=== PATIENT | female | born 1965 | race Caucasian/White ===

== ENCOUNTER 2019-01-20 15:17 | Inpatient (IN) | payer MEDICARE, MEDICAID ==
[2019-01-20] MEDS ORDERED: Diltiazem DRIP* 100 MG/100 ML ADDV.BAG IV ONE (15:32)
[2019-01-20] MEDS ORDERED: Diltiazem IV push/loading dose 5 MG/ML 5 ML vial (25 mg) IV SLOW PU ONE (15:32)
--- NOTE | 2019-01-20 15:38 | ED ---
HPI Chest Pain - HPI Summary HPI Summary: Pt is a 53 y/o F presenting to the ED brought in by EMS for chest pain initially onset multiple weeks ago. She was recently d/misti from [facility], and states her CP and SOB has worsened over the past week or so. - History of Current Complaint Chief Complaint: EDChestPainROMI Time Seen by Provider: 01/20/19 15:24 Hx Obtained From: Patient Onset/Duration: Started Weeks Ago, Still Present Timing: Constant, Lasting Weeks Initial Severity: Mild Current Severity: None Pain Intensity: 0 Pain Scale Used: 0-10 Numeric Chest Pain Location: Diffuse Chest Pain Radiates: No Aggravating Factor(s): Nothing Alleviating Factor(s): Nothing Associated Signs and Symptoms: Positive: Chest Pain, Shortness of Breath - Allergy/Home Medications Allergies/Adverse Reactions: Allergies Allergy/AdvReac Type Severity Reaction Status Date / Time MS Penicillins [Penicillins] AdvReac Unknown Hives Verified 02/27/15 23:16 Home Medications: Home Medications Albuterol/Ipratropium NEB.ALENA* [Duoneb (Albuterol 2.5 MG/Ipratropium 0.5 MG)] 1 neb INH Q6H PRN 01/20/19 [History Confirmed 01/20/19] Amitriptyline HCl 25 mg PO DAILY 01/20/19 [History Confirmed 01/20/19] Apixaban [Eliquis] 2.5 mg PO BID 01/20/19 [History Confirmed 01/20/19] Clotrimazole/Betamethasone* [Lotrisone Cream*] 1 applic TOPICAL BID 01/20/19 [ History Confirmed 01/20/19] Docusate Sodium [Colace] 100 mg PO DAILY 01/20/19 [History Confirmed 01/20/19] Ferrous Gluconate [Iron 27] 325 mg PO DAILY 01/20/19 [History Confirmed 01/20/19 ] Fluticasone-Salmeterol 250-50* [Advair Diskus 250-50*] 1 puff INH BID 01/20/19 [ History Confirmed 01/20/19] Furosemide [Lasix] 20 mg PO DAILY 01/20/19 [History Confirmed 01/20/19] Gabapentin 300 mg PO TID 01/20/19 [History Confirmed 01/20/19] Hydrocodone/Acetaminophen [Thornton 10-325 Tablet] 1 each PO QID PRN 01/20/19 [ History Confirmed 01/20/19] Pantoprazole Sodium 40 mg PO DAILY 01/20/19 [History Confirmed 01/20/19] Ropinirole HCl 0.5 mg PO BEDTIME 01/20/19 [History Confirmed 01/20/19] Spironolactone [Aldactone 25 MG-] 25 mg PO DAILY 01/20/19 [History Confirmed 10/05] Tizanidine HCl 4 mg PO TID PRN 01/20/19 [History Confirmed 01/20/19] Umeclidin/Vilant 62.5 MDI(NF) [ANORO 62.5/25 Ellipta DEVICE (NF)] 1 inh INH DAILY 01/20/19 [History Confirmed 01/20/19] Venlafaxine HCl [Venlafaxine HCl ER] 150 mg PO DAILY 01/20/19 [History Confirmed 01/20/19] dilTIAZem HCl [Diltiazem HCl ER] 180 mg PO DAILY 01/20/19 [History Confirmed 10/05] PMH/Surg Hx/FS Hx/Imm Hx Previously Healthy: Yes Endocrine/Hematology History: Denies: Hx Diabetes Cardiovascular History: Denies: Hx Hypertension Infectious Disease History: No Infectious Disease History: Denies: Traveled Outside the [place] in Last 30 Days - Family History Known Family History: Negative: Seizure Disorder - Social History Alcohol Use: Occasionally Hx Substance Use: No Substance Use Type: Reports: None Hx Tobacco Use: Yes Smoking Status (MU): Heavy Every Day Tobacco Smoker Review of Systems Positive: Chest Pain Positive: Shortness Of Breath All Other Systems Reviewed And Are Negative: Yes Physical Exam - Summary Physical Exam Summary: Appearance: The patient is well-nourished in no acute distress and in no acute pain. Skin: The skin is warm, diaphoretic, and skin color reflects adequate perfusion. HEENT: The head is normocephalic and atraumatic. The pupils are equal and reactive. The conjunctivae are clear and without drainage. Nares are patent and without drainage. Mouth reveals moist mucous membranes and the throat is without erythema and exudate. The external ears are intact. The ear canals are patent and without drainage. The tympanic membranes are intact. Neck: The neck is supple with full range of motion and non-tender. There are no carotid bruits. There is no neck vein distension. Respiratory: Chest is non-tender. Lungs have crackles 1[address], and breath sounds are symmetrical and equal. Cardiovascular: Heart is tachycardic and irregular. There is no murmur or rub auscultated. There is no peripheral edema and pulses are symmetrical and equal. Abdomen: The abdomen is soft and non-tender. There are normal bowel sounds heard in all four quadrants and there is no organomegaly palpated. Musculoskeletal: There is no back tenderness noted. Extremities are non-tender with full range of motion. There is good capillary refill. There is no peripheral edema or calf tenderness elicited. Neurological: Patient is alert and oriented to person, place and time. The patient has symmetrical motor strength in all four extremities. Cranial nerves are grossly intact. Deep tendon reflexes are symmetrical and equal in all four extremities. Psychiatric: The patient has an appropriate affect and does not exhibit any anxiety or depression. Triage Information Reviewed: Yes Vital Signs On Initial Exam: Initial Vitals Temp Pulse Resp BP Pulse Ox 96.9 F 162 25 117/77 98 01/20/19 15:29 01/20/19 15:29 01/20/19 15:29 01/20/19 15:29 01/20/19 15:29 Vital Signs Reviewed: Yes Diagnostics - Vital Signs Vital Signs Temp Pulse Resp BP Pulse Ox 01/20/19 15:29 96.9 F 162 25 117/77 98 - Laboratory Result Diagrams: 01/20/19 15:43 01/20/19 15:43 Lab Statement: Any lab studies that have been ordered have been reviewed, and results considered in the medical decision making process. - Radiology CXR Radiology Interpretation Completed By: Radiologist Summary of Radiographic Findings: 1. Interstitial pulmonary edema. 2. Mild cardiomegaly. 3. Small right and moderate left pleural effusion. 4. Its unclear if the 2.2 cm rounded opacity in the left upper lung zone is account executive sales representative of a pulmonary nodule or vascular markings. This could be further characterized by an elective chest CT. ED physician has reviewed this report. - EKG 1527 Cardiac Rate: Other Rate - afib 174 EKG Rhythm: Atrial Fibrillation ST Segment: Normal Ectopy: None Summary of EKG Findings: EKG at 1527 shows atrial fibrillation with RVR at 174bpm. No STEMI. No ectopy. No acute changes. Chest Pain Course/Dx - Course Course Of Treatment: Ms. Ricardo presented symptomatic with atrial fibrillation with RVR. She was immediately brought back, placed on a monitor and an IV was initiated. She was given Cardizem and started on a Cardizem drip with slowing of her rate and resolution of her symptoms. I spoke with the hospitalist about admitting her. - Diagnoses Provider Diagnoses: Atrial fibrillation with RVR - Provider Notifications Discussed Care Of Patient With: Russell Newell Time Discussed With Above Provider: 05:21 Instructed by Provider To: Admit As Inpatient - Critical Care Time Critical Care Time: 30-74 min - 30min Discharge - Sign-Out/Discharge Documenting (check all that apply): Patient Departure - Discharge Plan Condition: Stable Disposition: ADMITTED TO [facility] Referrals: Israel Gifford, [Primary Care Provider] - - Billing Disposition and Condition Condition: STABLE Disposition: Admitted to [facility] - Attestation Statements Document Initiated by Scribe: Yes Documenting Scribe: Ami Burns Provider For Whom [facility] is Documenting (Include Credential): Saul Kemp MD. Scribe Attestation: IAmi, scribed for Saul Kemp MD. on 01/20/19 at 1852. Scribe Documentation Reviewed: Yes Provider Attestation: The documentation as recorded by the scribe, Ami Burns accurately reflects the service I personally performed and the decisions made by me, Saul Kemp MD. Status of Scribe Document: Viewed Consult Consult: [id number] - I spoke with Dr. Newell who will be accepting the pt to [facility].
[2019-01-20 15:48] LABS: ABS Basophils 0.1 10^3/ul (0-0.2); ABS Eosinophils 0.1 10^3/ul (0-0.6); ABS Lymphocytes 1.7 10^3/ul (1.0-4.8); ABS Monocytes 0.6 10^3/ul (0-0.8); ABS Neutrophils 5.4 10^3/ul (1.5-7.7); Eosinophil % 1.2 %; Hematocrit 41 % (35-47); Hemoglobin 14.1 g/dL (12.0-16.0); Mean Corpuscular HGB Conc 34 g/dL (31-36); Mean Corpuscular Hemoglobin 35 pg (27-31); Mean Corpuscular Volume 102 fL (80-97); Mean Platelet Volume 8.4 fL (7.4-10.4); Platelet Count 172 10^3/uL (150-450); Red Blood Count 4.05 10^6 /uL (3.70-4.87); Red Cell Distribution Width 14 % (10-15); White Blood Count 7.9 10^3/uL (3.5-10.8)
[2019-01-20 15:56] LABS: INR 1.35 (0.82-1.09)
[2019-01-20] MEDS ORDERED: Diltiazem 125 mg in 125 mL D5W PREMIX (continuous infusion) IV SCH (16:00)
[2019-01-20 16:07] LABS: Albumin 3.8 g/dL (3.2-5.2); Albumin/Globulin Ratio 1.4 (1-3); BUN/Creatinine Ratio 16.7 (8-20); Calcium 8.9 mg/dL (8.6-10.3); Globulin 2.8 g/dL (2-4); Potassium 3.8 mmol/L (3.5-5.0); Total Bilirubin 0.6 mg/dL (0.2-1.0); Total Protein 6.6 g/dL (6.4-8.9)
[2019-01-20 16:51] LABS: TSH (Thyroid Stimulating Horm) 1.76 mcIU/mL (0.34-5.60)
[2019-01-20] MEDS ORDERED: Albuterol/Ipratropium NEB.SOL* Albuterol 2.5 MG/Ipratropium 0.5 MG 3 ML INH PRN (18:28)
[2019-01-20] MEDS ORDERED: tiZANidine TAB* 2 MG PO PRN (18:31)
[2019-01-20] MEDS ORDERED: Furosemide IV* 10 MG/ML 10 ML VIAL (100 MG) IV ONE (18:34)
[2019-01-20] MEDS ORDERED: Iohexol 350* (CONTRAST) 500 ML MDV IV ONE (18:53)
[2019-01-20] MEDS ORDERED: Diltiazem IV BAG* D5W Premix 125 MG/125 ML BAG IV SCH ×2 (19:00→20:34)
[2019-01-20] MEDS ORDERED: Digoxin IV* 0.5 MG/2 ML AMP (0.25 MG/ML) IV SLOW PU ONE (20:42)
[2019-01-20 20:57] LABS: C Reactive Protein 11.37 mg/L (<8.01)
[2019-01-20] MEDS ORDERED: Azithromycin IV(*) 250 MG in NS 0.9% 250 ML* 250 ML IVPB SCH (21:30)
[2019-01-20] MEDS: Apixaban* 2.5 MG TAB PO SCH (21:31)
[2019-01-20] MEDS: Gabapentin CAP(*) 300 MG PO SCH (21:31)
--- NOTE | 2019-01-20 21:36 | HP ---
CC: Dr. Israel Gifford * HISTORY AND PHYSICAL: DATE OF ADMISSION: 01/20/19 PROVIDER: Stephanie Marin NP PRIMARY CARE PROVIDER: Dr. Israel Gifford. ATTENDING PHYSICIAN WHILE IN THE HOSPITAL: Dr. Burns * (dictated by Stephanie Marin NP). CHIEF COMPLAINT: Shortness of breath. HISTORY OF PRESENT ILLNESS: Ms. Ricardo is a 53-year-old female with a past medical history significant for atrial fibrillation, depression, anxiety, GERD, COPD, diastolic dysfunction and history of sleep apnea, wears CPAP at night, who presented to the emergency room with complaints of progressively worsening shortness of breath x2 weeks. The patient reports that she was seen at [facility] last week for elevated heart rate and shortness of breath. She states that she was given medications to decrease her heart rate and was discharged home. She states over the past week her shortness of breath has become progressively worse. She reports that she has been sleeping up on 3 pillows and usually sleeps on 1. Shortness of breath worse with exertion. She does report a fever of 100.1 yesterday at home, some nasal congestion, and right -sided chest discomfort. She denies any weight gain. She does report a nonproductive cough. She does report some diarrhea and upper abdominal pain. She denies any unintended weight loss. She denies any increased swelling or edema. She does report that her abdomen feels bloated. She denies any gross hematuria or dysuria, focal weakness or sensory loss. Denies any visual complaints, dysphagia, arthralgias, myalgias, rashes, lesions, or open sores. Denies any psychosis or anxiety. While in the emergency room, the patient had routine lab work drawn. She was placed on the monitor and found to be in rapid atrial fibrillation at a rate of 162. She was given IV Cardizem and placed on a Cardizem drip at 10 mg per hour and her heart rate decreased to 103. Due to her continued tachycardia and chest x-ray with bilateral pleural effusions and her shortness of breath, we were asked to see and evaluate her for admission. PAST MEDICAL HISTORY: 1. Sleep apnea. 2. Atrial fibrillation, on chronic Eliquis. 3. Depression. 4. Anxiety. 5. GERD. 6. COPD. 7. Diastolic dysfunction. PAST SURGICAL HISTORY: 1. Gastric bypass. 2. C-sections. 3. Hysterectomy. 4. Tonsillectomy. HOME MEDICATIONS: Include: 1. Colace 100 mg p.o. daily. 2. Amitriptyline 25 mg p.o. daily. 3. Ropinirole 2 mg daily. 4. Effexor 150 mg p.o. daily. 5. Hydrocodone 10/325 q.6 hours as needed for pain. 6. Tizanidine 4 mg p.o. t.i.d. 7. Pantoprazole 40 mg p.o. daily. 8. Gabapentin 300 mg p.o. t.i.d. 9. Furosemide 20 mg p.o. daily. 10. Eliquis 2.5 mg p.o. b.i.d. 11. Spironolactone 25 mg p.o. daily. 12. Diltiazem HCl 180 mg p.o. daily. 13. Albuterol nebulizer as needed for shortness of breath. 14. Stiolto Respimat 2.5/2.5 mcg daily 2 puffs. 15. Ferrous gluconate 325 mg p.o. daily. (Medication list will need to be reviewed and a copy will need to be obtained from her primary care physician to confirm medications and diagnoses as this list that was provided was obtained from August of 2018 from a primary care record in [employer].) FAMILY HISTORY: Father with a history of hypertension. Mother with a history of unknown heart disease. Sister with diabetes. No reported history of cancer. SOCIAL HISTORY: The patient reports she smokes 2 packs per day. She does report occasional alcohol use. No illicit drug use. She is . She lives with her son. Surrogate decision maker in the event she is unable to make her own decisions is her son. She is a full code. REVIEW OF SYSTEMS: The patient does report fever and chills started yesterday, highest temp was 100.1. Denies any unintended weight loss. She does report right- sided chest pain. She denies any edema. Does report a nonproductive cough and shortness of breath. Denies any hemoptysis. No nausea, vomiting. She does report diarrhea and upper abdominal pain. She denies any gross hematuria, dysuria, focal weakness, or sensory loss. She denies any visual complaints, dysphagia, arthralgias, myalgias, rashes, lesions, or open sores. She denies any dizziness or lightheadedness. She denies any palpitations. PHYSICAL EXAMINATION GENERAL: At this time, Ms. Ricardo is a 53-year-old female. She is alert and oriented, resting on the stretcher in the emergency room. She is well developed , well nourished. She does appear to have mild respiratory distress. VITAL SIGNS: 113/60, heart rate 115 to 136, respirations are 19 to 28, O2 saturation 94% on O2 nasal cannula. Temp 96.9 HEENT: Head is atraumatic, normocephalic. Eyes: EOMs are intact. Pupils are 4 mm and equal. Sclerae anicteric and not pale. Oral mucosa appeared to be moist. NECK: Supple. LUNGS: Diminished bilaterally with crackles in the bases bilaterally with a few scattered expiratory wheezes on the left. CARDIAC: S1, S2. Irregular rate and rhythm. She is tachycardic. No rubs or gallops. ABDOMEN: Soft and nontender. Bowel sounds are present x4. MUSCULOSKELETAL: She is able to move all 4 extremities. There is no clubbing or cyanosis. There is no edema. Pedal pulses are +2 bilaterally. NEUROLOGIC: She is awake, alert, oriented x3. Speech is clear. Thought process is intact. There are no gross focal deficits noted. SKIN: Intact. DIAGNOSTIC STUDIES/LAB DATA: WBCs are 7.9, RBCs 4.05, hemoglobin 14.1, hematocrit 41, platelet count is 172. INR was 1.35, D-dimer 333. Sodium 137, potassium 3.8, chloride 107, carbon dioxide was 27, anion gap 9, BUN 10, creatinine 0.60, glucose was 110, lactic acid was 1.2, calcium 8.9, magnesium 2.0. ASTs were 25, ALTs were 31, alkaline phosphatase was 77. Troponin was 0.00. TSH was 1.76. She had a chest x-ray, radiologist's impression: Interstitial pulmonary edema, cardiomegaly, small right and moderate left pleural effusion. It is unclear if there is a 2.2 cm round opacity in the left upper lung zone representing pulmonary nodule or vascular markings, consider further characterization by an elective chest CT. She had a CTA of the chest, radiologist's impression: Sequelae and findings concerning for pulmonary edema potentially in the setting of heart failure; however, superimposed pneumonia cannot be excluded. No CTA evidence of pulmonary embolism. She had an electrocardiogram, which showed atrial fibrillation with RVR at a rate of 174 on admission. ASSESSMENT AND PLAN: Ms. Ricardo is a 53-year-old female with a past medical history significant for atrial fibrillation, on chronic Eliquis; depression; anxiety; sleep apnea; gastroesophageal reflux disease; chronic obstructive pulmonary disease; diastolic dysfunction, who presented to the emergency room with progressively worsening shortness of breath x2 weeks and nonproductive cough, nocturnal dyspnea. She will be admitted to the ICU with: 1. Atrial fibrillation with rapid ventricular response. Patient has a history of atrial fibrillation but is usually in normal sinus rhythm. The patient was tachycardic on arrival to the emergency room with a heart rate of 174. She was placed on a diltiazem drip and drip was increased to 15 mg per hour. Her heart rate is ranging from 100s to 130's. I did get a D-dimer, which was positive at 333. CTA of the chest was completed which showed no pulmonary embolism, but pulmonary edema and possible superimposed pneumonia. We will continue her on a Cardizem drip at 15 mg per hour. I will continue her Eliquis. She currently is on 2.5 mg p.o. b.i.d. Recommended daily dose is 5 mg p.o. b.i.d. The patient may benefit from cardioversion if we are unable to control her heart rate. If heart rate remains uncontrolled, I would recommend a consultation to Cardiology. 2. Shortness of breath. I suspect her shortness of breath is related to pulmonary edema and possible underlying pneumonia as well as uncontrolled rapid A-fib. CTA was concerning for pulmonary edema with possible superimposed pneumonia. I will get a CRP and send for a urine for Legionella and Strep pneumoniae. Get blood cultures. I will start her on ceftriaxone and azithromycin for treatment of pneumonia. As the patient reports fever at home 100.1 a day prior to arrival. She does have a history of COPD so antibiotic would be indicated, increased shortness of breath, cough and reported low grade fever. The patient does have a history of diastolic dysfunction as well. Last transthoracic echocardiogram was from July 2018. At that time, she had an EF of 50% and [id number] mitral stenosis was seen on the echocardiogram. I will repeat a transthoracic echo as well. I will give her Lasix 60 mg IV for treatment of pulmonary edema. strict i/o's and re-evaluate her fluid status in the AM for further diuretics. 3. Depression and anxiety. We will continue on Effexor and amitriptyline as previously prescribed. 4. Chronic obstructive pulmonary disease. The patient will be placed on albuterol nebulizer and home inhaler. 5. FEN: She can have a heart-healthy, no caffeine diet. 6. Code status: She is a full code. 7. DVT prophylaxis: She is currently on Eliquis. TIME SPENT: Time spent on this admission was 70 minutes, greater than half that time was spent at the bedside reviewing events leading thus far to her hospitalization, performing physical exam, and reviewing my plan of care. I have discussed this with my attending, Dr. Burns; she is in agreement with my plan. STEPHANIE MARIN, STARR [id number]/CPS #: [id number] JACQUE
[2019-01-20] MEDS: cefTRIAXone(*) 1 GM in NS 0.9% 50 ML* 50 ML IVPB SCH (22:31)
[2019-01-20 23:25] LABS: Urine Appearance Clear; Urine Bilirubin Negative (Negative); Urine Blood Negative (Negative); Urine Color Yellow; Urine Glucose Negative (Negative); Urine Ketones Negative (Negative); Urine Nitrite Negative (Negative); Urine Protein Negative (Negative); Urine Specific Gravity 1.031 (1.010-1.030); Urine Urobilinogen Negative (Negative)
[2019-01-21] MEDS: rOPINIRole TAB* 1 MG PO SCH ×2 (00:02→22:29)
[2019-01-21] MEDS: Diltiazem IV BAG* D5W Premix 125 MG/125 ML BAG IV SCH ×2 (00:39→08:48)
[2019-01-21 05:04] LABS: ABS Eosinophils 0.1 10^3/ul (0-0.6); ABS Lymphocytes 1.5 10^3/ul (1.0-4.8); ABS Monocytes 0.5 10^3/ul (0-0.8); ABS Neutrophils 3.6 10^3/ul (1.5-7.7); Eosinophil % 2.3 %; Hematocrit 37 % (35-47); Hemoglobin 12.5 g/dL (12.0-16.0); Mean Corpuscular HGB Conc 34 g/dL (31-36); Mean Corpuscular Hemoglobin 35 pg (27-31); Mean Corpuscular Volume 103 fL (80-97); Mean Platelet Volume 8.3 fL (7.4-10.4); Nucleated Red Blood Cells % 0.1; Platelet Count 144 10^3/uL (150-450); Red Blood Count 3.61 10^6 /uL (3.70-4.87); Red Cell Distribution Width 14 % (10-15); White Blood Count 5.9 10^3/uL (3.5-10.8)
[2019-01-21 05:20] LABS: BUN/Creatinine Ratio 14.3 (8-20); Calcium 8.5 mg/dL (8.6-10.3); EGFR African American 120.1 (>60); EGFR Non-African American 99.2 (>60); HDL Cholesterol 32.1 mg/dL; Potassium 3.5 mmol/L (3.5-5.0)
[2019-01-21] MEDS ORDERED: Perflutren Lipid Microsphere* 3 ML VIAL ONE (07:30)
[2019-01-21] MEDS: Hydrocodone/Acetamin 10/325 1 TAB PO PRN ×2 (08:44→19:06)
[2019-01-21] MEDS: Gabapentin CAP(*) 300 MG PO SCH ×3 (08:45→20:21)
[2019-01-21] MEDS: Amitriptyline TAB* 25 MG PO SCH (08:46)
[2019-01-21] MEDS: Pantoprazole TAB * 40 MG TAB PO SCH (08:46)
[2019-01-21] MEDS: Venlafaxine EXT RELEASE CAP* 75 MG PO SCH (08:47)
[2019-01-21] MEDS: Docusate CAP* 100 MG PO SCH (08:47)
[2019-01-21] MEDS: Spironolactone TAB* 25 MG PO SCH (08:47)
[2019-01-21] MEDS ORDERED: Ferrous Gluconate TAB* 324 MG TAB PO SCH (09:00)
[2019-01-21] MEDS ORDERED: Furosemide IV* 10 MG/ML VIAL (40 MG) IV SCH (09:00)
--- NOTE | 2019-01-21 10:05 | ECHO ---
*[facility]* [place] [address] Fax #: [phone] Transthoracic Echocardiogram Patient: Shy Ricardo : 1965 Study Date: 01/21/2019 Age: 53 Gender: F HR: 62 bpm Height: 63 in /160 cm BSA: 2.05 m^2 Weight: 229.5 lb /104.3 kg BMI: 40.7 kg/m^2 *Avionics Electrical Engineer: Evelia Fisher [facility] *Referring Physician: * Stephanie Marin *Reading Physician: * Ajay Monroe MD Indications: SOB. Congestive Heart Failure. History: COPD with CPAP usage, diastolic dysfunction. Risk factors: Current tobacco use. Conclusions Summary: - Procedure narrative: Transthoracic echocardiography was performed. Image quality was suboptimal. The study was technically limited due to poor acoustic window availability. Intravenous Definity , 4 mlswas administered. - Left ventricle: The cavity size is at the upper limits of normal. Wall thickness is normal. Systolic function is at the lower limits of normal. The estimated ejection fraction is 50-55%. Wall motion is normal; there are no regional wall motion abnormalities. - Right ventricle: The cavity size is mildly reduced. Systolic function is mildly reduced. - Mitral valve: Not well visualized, suspect rheumatic mitral stenosis The findings are consistent with moderate to severe stenosis according to updated guidelines. The presence of left atrium diliation and atrial arrhythmia presentation argues for clinically significant mitral stenosis. There is mild regurgitation. The pressure half-time is 208 ms. The mean diastolic gradient is 6.0 mm Hg while in sinus rhythm with a heart rate of 63 bpm The valve area by pressure half-time is 1.1 cm^2. Recommendations: None prior for comparison at time of interpretation. Study data: Transthoracic echocardiogram. Procedure: Transthoracic echocardiography was performed. Image quality was suboptimal. The study was technically limited due to poor acoustic window availability. Intravenous Definity , 4 mlswas administered. Image enhancement administered by Complete 2D, spectral Doppler, and color flow Doppler. Location: ICU Patient status: Inpatient. Patient room number: 12. Rhythm: Normal sinus rhythm. Findings Left ventricle: The cavity size is at the upper limits of normal. Wall thickness is normal. Systolic function is at the lower limits of normal. The estimated ejection fraction is 50-55%. Wall motion is normal; there are no regional wall motion abnormalities. There is abnormal septal motion of uncertain cause, consider right ventricle pressure/volume overload Left ventricular diastolic function parameters are indeterminate. Right ventricle: Not well visualized. The cavity size is mildly reduced. Systolic function is mildly reduced. Ventricular septum: Well visualized. Left atrium: Poorly visualized. The atrium is moderately to severely dilated. Right atrium: Not well visualized. Atrial septum: Poorly visualized. 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 Systolic bowing without prolapse. The findings are consistent with moderate to severe stenosis according to updated guidelines. The presence of left atrium diliation and atrial arrhythmia presentation argues for clinically significant mitral stenosis. There is mild regurgitation. Aortic valve: Not well visualized. Tricuspid valve: Not well visualized. Pulmonic valve: Well visualized. The leaflets are normal thickness. There is no evidence of stenosis. There is no significant regurgitation. Aorta: The aorta is not visualized. Pericardium: There is no pericardial effusion. No evidence of pleural fluid accumulation. Pulmonary arteries: Not well visualized. Systemic veins: Not well visualized. Pulmonary veins: Visualization of the pulmonary venous anatomy is incomplete, but a significant abnormality is unlikely. Measurements Left ventricle Value Ref Left atrium Value Ref CHLOÉ, LAX 5.0 cm 3.8 - 5.2 ML dim, A4C 5.1 cm ------- ESD, LAX (H) 4.1 cm 2.2 - 3.5 SI dim, A4C 6.3 cm ------- FS, LAX (L) 20 % 27 - 45 Vol/bsa, ES, 1-p A4C (H) 56 ml/m^2 11 - 40 PW, ED, LAX (H) 1.1 cm 0.6 - 0.9 Vol/bsa, ES, A/L (H) 55 ml/m^2 16 - 34 FS (L) 19 % 27 - 45 Mid-wall FS 10 % --------- Aortic valve Value Ref PW, ED (H) 1.1 cm 0.6 - 0.9 Peak v, S 1.01 m/sec ------- PW/ID, ED 0.21 --------- VTI, S 22.2 cm ------- DFT 610 ms --------- Mean grad, S 2.0 mm Hg ------- E', lat sofia, TDI (L) 5.1 cm/sec >=10.0 Peak grad, S 4.0 mm Hg - ------ E/e', lat sofia, TDI 32 --------- LVOT/AV, VTI ratio 0.77 ---- --- E', med sofia, TDI 13.3 cm/sec >=7.0 JEFFY, VTI 3.76 cm^2 - ------ E/e', med sofia, TDI 12 --------- JEFFY, Vmax 3.81 cm^2 ---- --- E', avg, TDI 9.2 cm/sec --------- E/e', avg, TDI (H) 18 <=14 Mitral valve Value R ef Peak E 1.61 m/sec ------- LVOT Value Ref Peak A 1.2 m/sec ------- Diam, S 2.50 cm --------- Decel time 717 ms ------- Area 4.9 cm^2 --------- PHT 208 ms ------- Peak stephanie, S 0.78 m/sec --------- Mean grad, D 6.0 mm Hg ------- VTI, S 17.0 cm --------- Peak grad, D 10.4 mm Hg ------- Mean grad, S 1 mm Hg --------- Peak E/A ratio 1.34 ------- SV 83 ml --------- MVA, PHT 1.1 cm^2 ------- SV/bsa 40 ml/m^2 --------- Pulmonic valve Value Ref Ventricular septum Value Ref Peak v, S 0.68 m/sec ------- IVS, ED (H) 1.0 cm 0.6 - 0.9 Peak grad, S 2.0 mm Hg ------- Right ventricle Value Ref CHLOÉ, LAX 2.7 cm --------- Legend: (L) and (H) nicolasa values outside specified reference range. Prepared and electronically signed by Ajay Monroe MD 01/21/2019 10:04
[2019-01-21] MEDS: Apixaban* 2.5 MG TAB PO SCH (11:02)
[2019-01-21] MEDS: Diltiazem CD CAP* 180 MG PO SCH ×2 (13:04→17:29)
[2019-01-21 19:18] LABS: Troponin I 0.01 ng/mL (<0.04)
[2019-01-21] MEDS ORDERED: Potassium Chlor TAB* 20 MEQ TAB.ER PO ONE (19:46)
[2019-01-21] MEDS ORDERED: Furosemide IV* 10 MG/ML 2 ML VIAL (20 MG) IV ONE (19:47)
--- NOTE | 2019-01-21 19:54 | CONSULT ---
Subjective Date of Service: 01/21/19 Interval History: Date of consult 01/21/2019 Primary Care Physician: Israel Gifford D.O. Collar Trimmer: Dr. Gonsalez CC: Dyspnea Reason for consult: Atrial fibrillation, mitral stenosis, CHF HPI: Shy Ricardo is a 53 year old woman with a history as below. Patient was admitted with 2 weeks of dyspnea. She was at [facility] and given rate control medications for atrial fibrillation. Symptoms continued to worsen. She developed orthopnea, abdomen bloating sensation, and right sided chest discomfort. She was admitted and found with rapid atrial fibrillation and CHF. She spontaneously converted to sinus rhythm on a diltiazem gtt and she feels markedly improved and is able to ambulate to the bathroom without symptoms. She does have a known history of paroxysmal atrial fibrillation which she cannot feel. PAST MEDICAL HISTORY: 1. Sleep apnea. 2. Atrial fibrillation, on chronic Eliquis. 3. Mitral stenosis, likely rheumatic 4. Multifactorial heart failure 5. Obesity 6. Anxiety/depression Allergies:Penicillin 09/23/15 - hives Surgical Hx: Section, Dilation & Curettage, Gastric Banding, Tubal Ligation, Hysterectomy FH: Cancer, Diabetes, Hypertension, Thyroid Disease. SOCIAL HISTORY: The patient reports she smokes 2 packs per day. She does report occasional alcohol use. No illicit drug use. She is . She lives with her son. Surrogate decision maker in the event she is unable to make her own decisions is her son. She is a full code. Medications Active Medications: Acetaminophen (Tylenol Tab*) 650 mg PO Q4H PRN PRN Reason: FEVER/PAIN Hydrocodone Bitart/Acetaminophen ([place] 10/325 (Nf)) 1 tab PO Q6H PRN PRN Reason: PAIN - SEVERE Last Admin: 01/21/19 19:06 Dose: 1 tab Albuterol/Ipratropium (Duoneb (Albuterol 2.5 Mg/Ipratropium 0.5 Mg)) 1 neb INH [id number] AWAKE PRN PRN Reason: sob/wheexing Amiodarone HCl (Cordarone Tab*) 400 mg PO DAILY [facility] Amitriptyline HCl (Elavil Tab*) 25 mg PO DAILY [facility] Last Admin: 01/21/19 08:46 Dose: 25 mg Apixaban (Eliquis*) 5 mg PO BID [facility] Diltiazem HCl (Cardizem Cd Cap*) 180 mg PO DAILY [facility] Last Admin: 01/21/19 17:29 Dose: 180 mg Docusate Sodium (Colace Cap*) 100 mg PO DAILY [facility] Last Admin: 01/21/19 08:47 Dose: Not Given Ferrous Gluconate (Fergon Tab*) 324 mg PO DAILY [facility] Furosemide (Lasix Iv*) 20 mg IV ONCE ONE Stop: 01/21/19 19:48 Furosemide (Lasix Tab*) 20 mg PO DAILY [facility] Gabapentin (Neurontin Cap(*)) 300 mg PO TID [facility] Last Admin: 01/21/19 14:58 Dose: 300 mg Ceftriaxone Sodium 1 gm/ (Sodium Chloride) 50 mls @ 100 mls/hr IVPB Q24H [facility] Last Admin: 01/20/19 22:31 Dose: 100 mls/hr Pantoprazole Sodium (Protonix Tab*) 40 mg PO DAILY [facility] Last Admin: 01/21/19 08:46 Dose: 40 mg Potassium Chloride (Klor Con Er Tab*) 40 meq PO ONCE ONE Stop: 01/21/19 19:47 Ropinirole HCl (Requip Tab*) 2 mg PO BEDTIME [facility] Last Admin: 01/21/19 00:02 Dose: 2 mg Spironolactone (Aldactone Tab*) 25 mg PO DAILY [facility] Last Admin: 01/21/19 08:47 Dose: 25 mg Tizanidine HCl (Zanaflex Tab*) 4 mg PO TID PRN PRN Reason: SPASMS Last Admin: 01/21/19 08:45 Dose: 4 mg Venlafaxine HCl (Effexor Xr Cap*) 150 mg PO DAILY [facility] Last Admin: 01/21/19 08:47 Dose: 150 mg Home Medications: Albuterol/Ipratropium NEB.ALENA* [Duoneb (Albuterol 2.5 MG/Ipratropium 0.5 MG)] 1 neb INH Q6H PRN 01/20/19 [History Confirmed 01/20/19] Amitriptyline HCl 25 mg PO DAILY 01/20/19 [History Confirmed 01/20/19] Apixaban [Eliquis] 2.5 mg PO BID 01/20/19 [History Confirmed 01/20/19] Clotrimazole/Betamethasone* [Lotrisone Cream*] 1 applic TOPICAL BID 01/20/19 [ History Confirmed 01/20/19] Docusate Sodium [Colace] 100 mg PO DAILY 01/20/19 [History Confirmed 01/20/19] Ferrous Gluconate [Iron 27] 325 mg PO DAILY 01/20/19 [History Confirmed 01/20/19 ] Fluticasone-Salmeterol 250-50* [Advair Diskus 250-50*] 1 puff INH BID 01/20/19 [ History Confirmed 01/20/19] Furosemide [Lasix] 20 mg PO DAILY 01/20/19 [History Confirmed 01/20/19] Gabapentin 300 mg PO TID 01/20/19 [History Confirmed 01/20/19] Hydrocodone/Acetaminophen [[place] 10-325 Tablet] 1 each PO QID PRN 01/20/19 [ History Confirmed 01/20/19] Pantoprazole Sodium 40 mg PO DAILY 01/20/19 [History Confirmed 01/20/19] Ropinirole HCl 0.5 mg PO BEDTIME 01/20/19 [History Confirmed 01/20/19] Spironolactone [Aldactone 25 MG-] 25 mg PO DAILY 01/20/19 [History Confirmed 10/05] Tizanidine HCl 4 mg PO TID PRN 01/20/19 [History Confirmed 01/20/19] Umeclidin/Vilant 62.5 MDI(NF) [ANORO 62.5/25 Ellipta DEVICE (NF)] 1 inh INH DAILY 01/20/19 [History Confirmed 01/20/19] Venlafaxine HCl [Venlafaxine HCl ER] 150 mg PO DAILY 01/20/19 [History Confirmed 01/20/19] dilTIAZem HCl [Diltiazem HCl ER] 180 mg PO DAILY 01/20/19 [History Confirmed 10/05] Review of Systems - Measurements Intake and Output: Intake and Output Last 24 Hours 01/19/19 01/20/19 01/21/19 01/22/19 06:59 06:59 06:59 06:59 Intake Total 387 200 Output Total 400 Balance -13 200 Weight 277 lb 12.519 oz Intake: Medicated IV 150 GEN - Diltiazem/Cardizem 20 azithromycin 60 ceftriaxone 70 Oral 237 200 Output: Urine 400 - Review of Systems Constitutional Symptoms: Positive: Weakness, Fatigue Negative: Weight Gain, Weight Loss, Fever, Night Sweats Dermatology: Negative: Rash, Skin Lesions HEENT: Negative: Change in Hearing, Vertigo Eyes: Negative: Change in Vision, Double Vision Thyroid: Negative: Weight Loss, Weight Gain Pulmonary: Positive: Shortness of Breath, Exercise Intolerance Negative: Respiratory Distress, COPD Cardiology: Positive: Orthopnea Negative: Shortness of Breath, Swelling of Ankles, Peripheral Vascular Dis, Edema, Faintness, Syncope, Claudication Gastroenterology: Negative: Blood in Stools, Change in Bowel Habits, Haematemesis, Melena Genital - Urinary: Negative: Dysuria, Hematuria Musculoskeletal: Negative: Joint Pain, Joint Stiffness Endocrinology: Positive: Obesity Negative: Polydipsia, Polyuria Hematologic/Lymphatic: Positive: Use of Anticoagulant Negative: Use of Antiplatelet Drugs Neurology: Negative: Change in Speech, Change in Sphincter Function, Change in Walking, Hx of Stroke\TIA, Hx Seizures Psychiatry: Negative: Unusual Anxiety, Suicidal Ideation Allergic/Immunologic: Negative: Hx HIV, Immunocompromise Review of Systems Statement: All other review of systems negative, unless stated above. Objective Vital Signs: Temp Pulse Resp BP Pulse Ox 97.7 F 62 16 108/63 94 01/21/19 15:56 01/21/19 15:56 01/21/19 19:06 01/21/19 15:56 01/21/19 15:56 Oxygen Devices in Use Now: None Appearance: nad, pleasant Ears/Nose/Mouth/Throat: Mucous Membranes Moist Neck: Trachea Midline, - - uncertain jvp Respiratory: Symmetrical Chest Expansion and Respiratory Effort, - - crackles bases Cardiovascular: RRR, No Edema, - - distant, no significant murmur Abdominal: - - obese, soft Extremities: No Edema Skin: No Rash or Ulcers Neurological: Alert and Oriented x 3 Laboratory Results: 01/21/19 04:54 01/21/19 04:54 INR (Anticoag Therapy) 1.35 (0.82-1.09) H 01/20/19 15:43 Total Bilirubin 0.60 mg/dL (0.2-1.0) 01/20/19 15:43 AST 25 U/L (13-39) 01/20/19 15:43 ALT 31 U/L (7-52) 01/20/19 15:43 Alkaline Phosphatase 77 U/L (34-104) 01/20/19 15:43 Total Protein 6.6 g/dL (6.4-8.9) 01/20/19 15:43 Albumin 3.8 g/dL (3.2-5.2) 01/20/19 15:43 Globulin 2.8 g/dL (2-4) 01/20/19 15:43 Albumin/Globulin Ratio 1.4 (1-3) 01/20/19 15:43 Triglycerides 63 mg/dL 01/21/19 04:54 Cholesterol 82 mg/dL 01/21/19 04:54 LDL Cholesterol 37 mg/dL 01/21/19 04:54 HDL Cholesterol 32.1 mg/dL 01/21/19 04:54 TSH 1.76 mcIU/mL (0.34-5.60) 01/20/19 15:43 01/20/19 01/21/19 15:43 04:54 Troponin I 0.00 0.01 Diagnostic Imaging: Cardiac Testing: Echocardiogram - (07/30/2018) Normal LV function EF 65% Left atrial enlargement Mild AR Mod/severe Mitral Stenosis Mean Grad 12 mmHg PHT 136 ms Trace TR Mild Pulm HTN Transthoracic Echocardiogram Study Date: 01/21/2019 Summary: - Procedure narrative: Transthoracic echocardiography was performed. Image quality was suboptimal. The study was technically limited due to poor acoustic window availability. Intravenous Definity , 4 mlswas administered. - Left ventricle: The cavity size is at the upper limits of normal. Wall thickness is normal. Systolic function is at the lower limits of normal. The estimated ejection fraction is 50-55%. Wall motion is normal; there are no regional wall motion abnormalities. - Right ventricle: The cavity size is mildly reduced. Systolic function is mildly reduced. - Mitral valve: Not well visualized, suspect rheumatic mitral stenosis The findings are consistent with moderate to severe stenosis according to updated guidelines. The presence of left atrium diliation and atrial arrhythmia presentation argues for clinically significant mitral stenosis. There is mild regurgitation. The pressure half-time is 208 ms. The mean diastolic gradient is 6.0 mm Hg while in sinus rhythm with a heart rate of 63 bpm The valve area by pressure half-time is 1.1 cm^2. Exam Date: 01/20/19 CTA CHEST IMPRESSION: 1. Sequela of findings concerning for pulmonary edema potentially in the setting of heart failure, however superimposed pneumonia cannot be excluded. 2. No CTA evidence of pulmonary embolism. EKG Data: ekg 01/20/2019: Afib 174 bpm, no ischemic st changes ekg post-afib: sinus bradycardia, LAE, Precordial and 1/aVL TWI. I calculated qtc at 450 ms. the T wave inversions are new since 08/2018 although this was a month after the prior rapid afib ekg from 07/27/2018 Assessment/Plan 53 year old woman with obesity and tobacco use admitted with valvular heart failure exacerbation secondary to atrial fibrillation in the setting of mitral stenosis (likely rheumatic) now symptomatically improved with spontaneous conversion to sinus rhythm. - Continue eliquis 5 mg po bid, technically not indicated in this situation but tolerated well previously would continue - Give IV lasix 20 mg x 1 now with 40 meq of K then resume oral [facility] lasix 20 mg /spironolactone 25 mg daily (ordered) - Continue [facility] diltiazem 180 mg po daily - Will start amiodarone 400 mg po daily without loading dose for now until she can follow up with Dr. Gonsalez as I feel she would benefit from strict rhythm control in this situation. Post-conversion EKG suspicious for myocardial ischemia (would be most concerned about underlying CAD but other mechanisms possible) but she now has no symptoms , no wall motion abnormalities on echo and her troponin stayed normal despite a heart rate of over 170 bpm and there was no ischemic S-T depression at a heart rate of 174 bpm. She actually has a very favorable lipid profile with non-hdl total of 50 and LDL of 37 so a statin was not started. I would not start aspirin in addition to anticoagulation. She was counseled on tobacco cessation and a heart healthy diet with weight loss to reduce her risk of CV events and even in the short term. We will repeat an EKG tomorrow 01/22/2019 and if unchanged or improved and patient remains without symptoms she can be discharged on Monday01/22/2019 and follow up with Dr. Gonsalez for consideration of 1. ischemic evaluation, 2. Ongoing rhythm vs. rate control 3. Mitral stenosis evaluation/management Thank you for allowing me to participate in the cardiovascular care of this patient. Please do not hesitate to contact me with questions or concerns.
[2019-01-21] MEDS: Apixaban* 5 MG TAB PO SCH (20:22)
[2019-01-21] MEDS: Amiodarone TAB* 400 MG PO SCH (20:22)
[2019-01-21] MEDS: cefTRIAXone(*) 1 GM in NS 0.9% 50 ML* 50 ML IVPB SCH (20:23)
--- NOTE | 2019-01-21 21:47 | PN ---
Subjective Date of Service: 01/21/19 Interval History: Patient reports that she is feeling better. Reports that shortness of breath has improved. Denies chest pain or chest tightness. Denies fever or chills. Patient converted to NSR overnight- Cardizem was discontinued Patient is currently SB 58 on the monitor at the time of evaluation. EKG 0100 with T -wave inversions in V1-V6 repeat EKG at 0930 continues to show T wave inversions Troponins negative, patient with no chest pain- will obtain EKG's from [facility] to compare Family History: Unchanged from Admission Social History: Unchanged from Admission Past Medical History: Unchanged from Admission Objective Active Medications: Acetaminophen (Tylenol Tab*) 650 mg PO Q4H PRN PRN Reason: FEVER/PAIN Hydrocodone Bitart/Acetaminophen ([place] 10/325 (Nf)) 1 tab PO Q6H PRN PRN Reason: PAIN - SEVERE Last Admin: 01/21/19 19:06 Dose: 1 tab Albuterol/Ipratropium (Duoneb (Albuterol 2.5 Mg/Ipratropium 0.5 Mg)) 1 neb INH [id number] AWAKE PRN PRN Reason: sob/wheexing Amiodarone HCl (Cordarone Tab*) 400 mg PO DAILY [facility] Last Admin: 01/21/19 20:22 Dose: 400 mg Amitriptyline HCl (Elavil Tab*) 25 mg PO DAILY [facility] Last Admin: 01/21/19 08:46 Dose: 25 mg Apixaban (Eliquis*) 5 mg PO BID [facility] Last Admin: 01/21/19 20:22 Dose: 5 mg Diltiazem HCl (Cardizem Cd Cap*) 180 mg PO DAILY [facility] Last Admin: 01/21/19 17:29 Dose: 180 mg Docusate Sodium (Colace Cap*) 100 mg PO DAILY [facility] Last Admin: 01/21/19 08:47 Dose: Not Given Ferrous Gluconate (Fergon Tab*) 324 mg PO DAILY [facility] Furosemide (Lasix Tab*) 20 mg PO DAILY [facility] Gabapentin (Neurontin Cap(*)) 300 mg PO TID [facility] Last Admin: 01/21/19 20:21 Dose: 300 mg Ceftriaxone Sodium 1 gm/ (Sodium Chloride) 50 mls @ 100 mls/hr IVPB Q24H [facility] Last Admin: 01/21/19 20:23 Dose: 100 mls/hr Pantoprazole Sodium (Protonix Tab*) 40 mg PO DAILY [facility] Last Admin: 01/21/19 08:46 Dose: 40 mg Ropinirole HCl (Requip Tab*) 2 mg PO BEDTIME [facility] Last Admin: 01/21/19 00:02 Dose: 2 mg Spironolactone (Aldactone Tab*) 25 mg PO DAILY [facility] Last Admin: 01/21/19 08:47 Dose: 25 mg Tizanidine HCl (Zanaflex Tab*) 4 mg PO TID PRN PRN Reason: SPASMS Last Admin: 01/21/19 08:45 Dose: 4 mg Venlafaxine HCl (Effexor Xr Cap*) 150 mg PO DAILY [facility] Last Admin: 01/21/19 08:47 Dose: 150 mg Vital Signs - 8 hr 01/21/19 01/21/19 01/21/19 14:58 15:56 19:06 Temperature 97.7 F Pulse Rate 62 Respiratory 18 16 16 Rate Blood Pressure 108/63 (mmHg) O2 Sat by Pulse 94 Oximetry 01/21/19 01/21/19 19:15 20:21 Temperature 97.6 F Pulse Rate 64 Respiratory 16 18 Rate Blood Pressure 109/63 (mmHg) O2 Sat by Pulse 93 Oximetry Oxygen Devices in Use Now: None Appearance: alert oriented x 3 no acute distress Eyes: No Scleral Icterus Ears/Nose/Mouth/Throat: Clear Oropharnyx, Mucous Membranes Moist Neck: NL Appearance and Movements; NL JVP, Trachea Midline Respiratory: Symmetrical Chest Expansion and Respiratory Effort, - - diminished in the bases bilat Cardiovascular: NL Sounds; No Murmurs; No JVD, No Edema Abdominal: NL Sounds; No Tenderness; No Distention Lymphatic: No Inguinal Adenopathy Extremities: No Edema, No Clubbing, Cyanosis Skin: No Rash or Ulcers Neurological: Alert and Oriented x 3 Nutrition: Taking PO's Result Diagrams: 01/21/19 04:54 01/21/19 04:54 Microbiology and Other Data: Microbiology 01/20/19 23:12 Legionella Urinary Antigen - Final Urine Negative Legionella Antigen 01/21/19 00:00 Streptococcus pneumoniae Ag Screen - Final Urine Negative S. pneumo Antigen 01/20/19 21:45 Nasal Screen MRSA (PCR) - Final Nasal Mrsa Not Detected Assess/Plan/Problems-Billing Assessment: Ms. Ricardo is a 53 y.o female with hx of afib on eliquis, htn, depression, anxiety, copd, diastolic dysfunction who presented to the ER with shortness of breath found tohave MARIANN, placed on cardizem drip. - Patient Problems (1) Shortness of breath Current Visit: Yes Status: Acute Code(s): R06.02 - SHORTNESS OF BREATH SNOMED Code(s): 077720490 Comment: Suspect her shortness of breath is related to her underlying Rapid afib and well as pulmonary edema with possible super improsed pneumonia - i will continue ceftriaxone, discontinued azithromycin as QTC 565 and start doxycycline. patient reported that she had fever prior to arrival of 100.1 and chills at home ,progressively worsening shortness of breath with hx of COPD, CRP is mildly elevated - (2) Atrial fibrillation with rapid ventricular response Current Visit: Yes Status: Acute Code(s): I48.91 - UNSPECIFIED ATRIAL FIBRILLATION SNOMED Code(s): 497420135995156 Comment: DIlitzem drip stopped- converted to SB overnight - EKG at 0100 8/5 and 0937 with T wave inversion v1- V6- patient is s/p digoxin which can produce similar EKG changes, these changes can also be seen in ischemia- cardiology consulted - will hold on as ASA at this time. Statin therapy will defer to cardiology for recommenatinos as patient does have LDL of 37, Choleserol is 82 and HDL 32 CTA of the chest - negative for PE - Troponins 0.00 repeat this AM 0.01 - patient denies chest pain, Echo with Normal wall motion and EF 50-55%, moderate to severe mitral stenosis (3) HTN (hypertension) Current Visit: Yes Status: Acute Code(s): I10 - ESSENTIAL (PRIMARY) HYPERTENSION SNOMED Code(s): 45123126 Comment: Sbp 99-109 will continue to monitor (4) Tobacco abuse Current Visit: Yes Status: Acute Code(s): Z72.0 - TOBACCO USE SNOMED Code( s): 258763537 Comment: patient is a heavy smoking smoking 2 ppd - smoking cessation discussed (5) DVT prophylaxis Current Visit: Yes Status: Acute Code(s): Z29.9 - ENCOUNTER FOR PROPHYLACTIC MEASURES, UNSPECIFIED SNOMED Code(s): 507296036 Comment: santiago (6) Full code status Current Visit: Yes Status: Acute Code(s): Z78.9 - OTHER SPECIFIED HEALTH STATUS SNOMED Code(s): 563048587
[2019-01-22 06:43] LABS: Hematocrit 38 % (35-47); Mean Corpuscular HGB Conc 35 g/dL (31-36); Mean Corpuscular Hemoglobin 35 pg (27-31); Mean Corpuscular Volume 102 fL (80-97); Mean Platelet Volume 8.1 fL (7.4-10.4); Platelet Count 149 10^3/uL (150-450); Red Blood Count 3.67 10^6 /uL (3.70-4.87); Red Cell Distribution Width 14 % (10-15); White Blood Count 4.7 10^3/uL (3.5-10.8)
[2019-01-22 07:07] LABS: BUN/Creatinine Ratio 13.3 (8-20); Potassium 3.7 mmol/L (3.5-5.0)
[2019-01-22] MEDS: Amitriptyline TAB* 25 MG PO SCH (08:47)
[2019-01-22] MEDS: Diltiazem CD CAP* 180 MG PO SCH (08:47)
[2019-01-22] MEDS: Apixaban* 5 MG TAB PO SCH ×2 (08:48→21:01)
[2019-01-22] MEDS: Ferrous Gluconate TAB* 324 MG TAB PO SCH (08:48)
[2019-01-22] MEDS: Spironolactone TAB* 25 MG PO SCH (08:48)
[2019-01-22] MEDS: Pantoprazole TAB * 40 MG TAB PO SCH (08:48)
[2019-01-22] MEDS: Venlafaxine EXT RELEASE CAP* 75 MG PO SCH (08:48)
[2019-01-22] MEDS: Amiodarone TAB* 400 MG PO SCH (08:48)
[2019-01-22] MEDS: DOXYcycline CAP(*) 100 MG PO SCH ×2 (08:48→21:01)
[2019-01-22] MEDS: Acetaminophen TAB* 325 MG PO PRN (08:49)
[2019-01-22] MEDS: Gabapentin CAP(*) 300 MG PO SCH ×3 (08:49→21:01)
[2019-01-22] MEDS: Docusate CAP* 100 MG PO SCH (08:51)
[2019-01-22] MEDS ORDERED: Furosemide TAB* 20 MG PO SCH (09:00)
--- NOTE | 2019-01-22 09:45 | PN ---
Subjective Date of Service: 01/22/19 Interval History: No acute issues overnight. Case discussed with Cardiology: QT prolongation. She takes tizanidine and effexor that likely is contributing factor. Currently in sinus rhythm. No chest pain or palpitations currently. Family History: Unchanged from Admission Social History: Unchanged from Admission Past Medical History: Unchanged from Admission Objective Active Medications: Acetaminophen (Tylenol Tab*) 650 mg PO Q4H PRN PRN Reason: FEVER/PAIN Last Admin: 01/22/19 08:49 Dose: 650 mg Hydrocodone Bitart/Acetaminophen ([place] 10/325 (Nf)) 1 tab PO Q6H PRN PRN Reason: PAIN - SEVERE Last Admin: 01/21/19 19:06 Dose: 1 tab Albuterol/Ipratropium (Duoneb (Albuterol 2.5 Mg/Ipratropium 0.5 Mg)) 1 neb INH [id number] AWAKE PRN PRN Reason: sob/wheexing Amiodarone HCl (Cordarone Tab*) 400 mg PO DAILY [facility] Last Admin: 01/22/19 08:48 Dose: 400 mg Amitriptyline HCl (Elavil Tab*) 25 mg PO DAILY [facility] Last Admin: 01/22/19 08:47 Dose: 25 mg Apixaban (Eliquis*) 5 mg PO BID [facility] Last Admin: 01/22/19 08:48 Dose: 5 mg Diltiazem HCl (Cardizem Cd Cap*) 180 mg PO DAILY [facility] Last Admin: 01/22/19 08:47 Dose: 180 mg Docusate Sodium (Colace Cap*) 100 mg PO DAILY [facility] Last Admin: 01/22/19 08:51 Dose: Not Given Doxycycline Hyclate (Vibramycin Cap(*)) 100 mg PO BID [facility] Last Admin: 01/22/19 08:48 Dose: 100 mg Ferrous Gluconate (Fergon Tab*) 324 mg PO DAILY [facility] Last Admin: 01/22/19 08:48 Dose: 324 mg Furosemide (Lasix Tab*) 20 mg PO DAILY [facility] Last Admin: 01/22/19 08:48 Dose: 20 mg Gabapentin (Neurontin Cap(*)) 300 mg PO TID [facility] Last Admin: 01/22/19 08:49 Dose: 300 mg Ceftriaxone Sodium 1 gm/ (Sodium Chloride) 50 mls @ 100 mls/hr IVPB Q24H [facility] Last Admin: 01/21/19 20:23 Dose: 100 mls/hr Pantoprazole Sodium (Protonix Tab*) 40 mg PO DAILY [facility] Last Admin: 01/22/19 08:48 Dose: 40 mg Ropinirole HCl (Requip Tab*) 2 mg PO BEDTIME [facility] Last Admin: 01/21/19 22:29 Dose: 2 mg Spironolactone (Aldactone Tab*) 25 mg PO DAILY [facility] Last Admin: 01/22/19 08:48 Dose: 25 mg Tizanidine HCl (Zanaflex Tab*) 4 mg PO TID PRN PRN Reason: SPASMS Last Admin: 01/21/19 08:45 Dose: 4 mg Venlafaxine HCl (Effexor Xr Cap*) 150 mg PO DAILY [facility] Last Admin: 01/22/19 08:48 Dose: 150 mg Vital Signs - 8 hr 01/22/19 01/22/19 01/22/19 03:15 07:45 08:00 Temperature 97.7 F 98.2 F Pulse Rate 64 67 Respiratory 20 16 18 Rate Blood Pressure 124/79 114/72 (mmHg) O2 Sat by Pulse 93 92 Oximetry 01/22/19 08:49 Temperature Pulse Rate Respiratory 18 Rate Blood Pressure (mmHg) O2 Sat by Pulse Oximetry Oxygen Devices in Use Now: None Appearance: obese female lying in bed, not in distress Eyes: PERRLA Ears/Nose/Mouth/Throat: Mucous Membranes Moist Respiratory: Symmetrical Chest Expansion and Respiratory Effort, Clear to Auscultation Cardiovascular: NL Sounds; No Murmurs; No JVD, RRR, No Edema Abdominal: NL Sounds; No Tenderness; No Distention, No Hepatosplenomegaly Extremities: No Edema Neurological: Alert and Oriented x 3 Result Diagrams: 01/22/19 06:32 01/22/19 06:32 Microbiology and Other Data: Microbiology 01/20/19 23:12 Legionella Urinary Antigen - Final Urine Negative Legionella Antigen 01/21/19 00:00 Streptococcus pneumoniae Ag Screen - Final Urine Negative S. pneumo Antigen 01/20/19 21:45 Nasal Screen MRSA (PCR) - Final Nasal Mrsa Not Detected Assess/Plan/Problems-Billing Assessment: Ms. Ricardo is a 53 y.o female with hx of afib on eliquis, htn, depression, anxiety, copd, diastolic dysfunction who presented to the ER with shortness of breath found to have rapid atrial fibrillaton - Patient Problems (1) Atrial fibrillation with rapid ventricular response Current Visit: Yes Status: Acute Code(s): I48.91 - UNSPECIFIED ATRIAL FIBRILLATION SNOMED Code(s): 429525818145909 Comment: status post diltiazem drip. continue amiodraone, cardizem on eliquis EKG with Qt prolongation cardio recommends outpatient ischemia work up. Echo with Normal wall motion and EF 50-55%, moderate to severe mitral stenosis (2) DVT prophylaxis Current Visit: Yes Status: Acute Code(s): Z29.9 - ENCOUNTER FOR PROPHYLACTIC MEASURES, UNSPECIFIED SNOMED Code(s): 013129519 Comment: eliquis (3) Shortness of breath Current Visit: Yes Status: Acute Code(s): R06.02 - SHORTNESS OF BREATH SNOMED Code(s): 567385277 Comment: Suspect her shortness of breath is related to her underlying Rapid afib and well as pulmonary edema with possible super improsed pneumonia continue rocephin and doxycycline. (4) QT prolongation Current Visit: Yes Status: Acute Code(s): R94.31 - ABNORMAL ELECTROCARDIOGRAM [ECG] [EKG] SNOMED Code(s): 816180974 Comment: Paged Dr. Gifford to discuss changing tizanidine to other muscle relaxer (possibly flexeril) and change effexor to another anti-depressant ( perhaps duloxetine?) will await call back before making decision, at this point I have d/c'ed the order for effexor and tizanidine (5) Pulmonary edema Current Visit: Yes Status: Acute Code(s): J81.1 - CHRONIC PULMONARY EDEMA SNOMED Code(s): 27043253 Comment: Received IV lasix, continue PO lasix.
[2019-01-22] MEDS ORDERED: Potassium Chlor TAB* 20 MEQ TAB.ER PO ONE (10:33)
[2019-01-22] MEDS ORDERED: Furosemide IV* 10 MG/ML VIAL (40 MG) IV ONE (10:33)
--- NOTE | 2019-01-22 10:37 | PN ---
<Sola Shirley - Last Filed: 01/22/19 10:31> Subjective Date of Service: 01/22/19 - PAF Interval History: HPI: Shy Ricardo is a 53 year old woman with a history as below. Patient was admitted with 2 weeks of dyspnea. She was at [facility] and given rate control medications for atrial fibrillation. Symptoms continued to worsen. She developed orthopnea, abdomen bloating sensation, and right sided chest discomfort. She was admitted and found with rapid atrial fibrillation and CHF. She spontaneously converted to sinus rhythm on a diltiazem gtt and she feels markedly improved and is able to ambulate to the bathroom without symptoms. She does have a known history of paroxysmal atrial fibrillation which she cannot feel. She states she is still SOB denies chest pain, dizziness or palpitations. Medications Active Medications: Acetaminophen (Tylenol Tab*) 650 mg PO Q4H PRN PRN Reason: FEVER/PAIN Last Admin: 01/22/19 08:49 Dose: 650 mg Hydrocodone Bitart/Acetaminophen ([place] 10/325 (Nf)) 1 tab PO Q6H PRN PRN Reason: PAIN - SEVERE Last Admin: 01/21/19 19:06 Dose: 1 tab Albuterol/Ipratropium (Duoneb (Albuterol 2.5 Mg/Ipratropium 0.5 Mg)) 1 neb INH [id number] AWAKE PRN PRN Reason: sob/wheexing Amiodarone HCl (Cordarone Tab*) 200 mg PO DAILY [facility] Amitriptyline HCl (Elavil Tab*) 25 mg PO DAILY [facility] Last Admin: 01/22/19 08:47 Dose: 25 mg Apixaban (Eliquis*) 5 mg PO BID [facility] Last Admin: 01/22/19 08:48 Dose: 5 mg Diltiazem HCl (Cardizem Cd Cap*) 180 mg PO DAILY [facility] Last Admin: 01/22/19 08:47 Dose: 180 mg Docusate Sodium (Colace Cap*) 100 mg PO DAILY [facility] Last Admin: 01/22/19 08:51 Dose: Not Given Doxycycline Hyclate (Vibramycin Cap(*)) 100 mg PO BID [facility] Last Admin: 01/22/19 08:48 Dose: 100 mg Ferrous Gluconate (Fergon Tab*) 324 mg PO DAILY [facility] Last Admin: 01/22/19 08:48 Dose: 324 mg Furosemide (Lasix Tab*) 20 mg PO DAILY [facility] Last Admin: 01/22/19 08:48 Dose: 20 mg Gabapentin (Neurontin Cap(*)) 300 mg PO TID [facility] Last Admin: 01/22/19 08:49 Dose: 300 mg Ceftriaxone Sodium 1 gm/ (Sodium Chloride) 50 mls @ 100 mls/hr IVPB Q24H [facility] Last Admin: 01/21/19 20:23 Dose: 100 mls/hr Pantoprazole Sodium (Protonix Tab*) 40 mg PO DAILY [facility] Last Admin: 01/22/19 08:48 Dose: 40 mg Ropinirole HCl (Requip Tab*) 2 mg PO BEDTIME [facility] Last Admin: 01/21/19 22:29 Dose: 2 mg Spironolactone (Aldactone Tab*) 25 mg PO DAILY [facility] Last Admin: 01/22/19 08:48 Dose: 25 mg Objective Vital Signs: Temp Pulse Resp BP Pulse Ox 98.2 F 67 18 114/72 92 01/22/19 07:45 01/22/19 07:45 01/22/19 08:49 01/22/19 07:45 01/22/19 07:45 Oxygen Devices in Use Now: None Appearance: nad, pleasant Ears/Nose/Mouth/Throat: Mucous Membranes Moist Neck: Trachea Midline, - - uncertain jvp Respiratory: Symmetrical Chest Expansion and Respiratory Effort, - - crackles bases Cardiovascular: RRR, No Edema, - - distant, no significant murmur Abdominal: - - obese, soft Extremities: No Edema Skin: No Rash or Ulcers Neurological: Alert and Oriented x 3 Lines/Tubes/Other Access: Clean, Dry and Intact Peripheral IV Laboratory Results: 01/22/19 06:32 01/22/19 06:32 INR (Anticoag Therapy) 1.35 (0.82-1.09) H 01/20/19 15:43 Total Bilirubin 0.60 mg/dL (0.2-1.0) 01/20/19 15:43 AST 25 U/L (13-39) 01/20/19 15:43 ALT 31 U/L (7-52) 01/20/19 15:43 Alkaline Phosphatase 77 U/L (34-104) 01/20/19 15:43 Total Protein 6.6 g/dL (6.4-8.9) 01/20/19 15:43 Albumin 3.8 g/dL (3.2-5.2) 01/20/19 15:43 Globulin 2.8 g/dL (2-4) 01/20/19 15:43 Albumin/Globulin Ratio 1.4 (1-3) 01/20/19 15:43 Triglycerides 63 mg/dL 01/21/19 04:54 Cholesterol 82 mg/dL 01/21/19 04:54 LDL Cholesterol 37 mg/dL 01/21/19 04:54 HDL Cholesterol 32.1 mg/dL 01/21/19 04:54 TSH 1.76 mcIU/mL (0.34-5.60) 01/20/19 15:43 01/20/19 01/21/19 15:43 04:54 Troponin I 0.00 0.01 Laboratory Results - last 24 hr 01/21/19 01/22/19 01/22/19 04:54 06:32 06:32 WBC 4.7 RBC 3.67 L Hgb 13.0 Hct 38 MCV 102 H MCH 35 H MCHC 35 RDW 14 Plt Count 149 L MPV 8.1 Sodium 139 140 Potassium 3.5 3.7 Chloride 108 108 Carbon Dioxide 25 27 Anion Gap 6 5 BUN 9 8 Creatinine 0.63 0.60 Est GFR ( Amer) 120.1 127.0 Est GFR (Non-Af Amer) 99.2 105.0 BUN/Creatinine Ratio 14.3 13.3 Glucose 93 83 Calcium 8.5 L 9.0 Troponin I 0.01 Triglycerides 63 Cholesterol 82 LDL Cholesterol 37 HDL Cholesterol 32.1 Diagnostic Imaging: Cardiac Testing: Echocardiogram - (07/30/2018) Normal LV function EF 65% Left atrial enlargement Mild AR Mod/severe Mitral Stenosis Mean Grad 12 mmHg PHT 136 ms Trace TR Mild Pulm HTN Transthoracic Echocardiogram Study Date: 01/21/2019 Summary: - Procedure narrative: Transthoracic echocardiography was performed. Image quality was suboptimal. The study was technically limited due to poor acoustic window availability. Intravenous Definity , 4 mlswas administered. - Left ventricle: The cavity size is at the upper limits of normal. Wall thickness is normal. Systolic function is at the lower limits of normal. The estimated ejection fraction is 50-55%. Wall motion is normal; there are no regional wall motion abnormalities. - Right ventricle: The cavity size is mildly reduced. Systolic function is mildly reduced. - Mitral valve: Not well visualized, suspect rheumatic mitral stenosis The findings are consistent with moderate to severe stenosis according to updated guidelines. The presence of left atrium diliation and atrial arrhythmia presentation argues for clinically significant mitral stenosis. There is mild regurgitation. The pressure half-time is 208 ms. The mean diastolic gradient is 6.0 mm Hg while in sinus rhythm with a heart rate of 63 bpm The valve area by pressure half-time is 1.1 cm^2. Exam Date: 01/20/19 CTA CHEST IMPRESSION: 1. Sequela of findings concerning for pulmonary edema potentially in the setting of heart failure, however superimposed pneumonia cannot be excluded. 2. No CTA evidence of pulmonary embolism. EKG Data: ekg 01/20/2019: Afib 174 bpm, no ischemic st changes ekg post-afib: sinus bradycardia, LAE, Precordial and 1/aVL TWI. I calculated qtc at 450 ms. the T wave inversions are new since 08/2018 although this was a month after the prior rapid afib ekg from 07/27/2018 01/22/2019 ECG; Sinus rhythm rate 67. QTc 553. anterolateral TW abnormalities comparable to 01/21/2019 ECG Assessment/Plan 53 year old woman with obesity and tobacco use admitted with valvular heart failure exacerbation secondary to atrial fibrillation in the setting of mitral stenosis (likely rheumatic) now symptomatically improved with spontaneous conversion to sinus rhythm. - Continue eliquis 5 mg po bid, technically not indicated in this situation but tolerated well previously would continue - Give IV lasix 40 mg x 1 now with 40 meq of K then resume oral [employer] lasix 20 mg /spironolactone 25 mg daily (ordered) - Continue [employer] diltiazem 180 mg po daily - Will start amiodarone 400 mg po daily without loading dose for now until she can follow up with Dr. Gonsalez as I feel she would benefit from strict rhythm control in this situation. Post-conversion EKG suspicious for myocardial ischemia (would be most concerned about underlying CAD but other mechanisms possible) but she now has no symptoms , no wall motion abnormalities on echo and her troponin stayed normal despite a heart rate of over 170 bpm and there was no ischemic S-T depression at a heart rate of 174 bpm. She actually has a very favorable lipid profile with non-hdl total of 50 and LDL of 37 so a statin was not started. I would not start aspirin in addition to anticoagulation. She was counseled on tobacco cessation and a heart healthy diet with weight loss to reduce her risk of CV events and even in the short term. Today's ECG continues to show QTc prolongation I spoke with clinical pharmacist today about other medications that she is on that would potentiate QTc prolongation. Venlafaxine and Tizonidine both can prolong QTc, I notifed hospitalist who is to address. Will reduce Amiodarone to 200mg/day. Given 40mg IVP lasix, 40 MEQ K-Dur and will continue to follow. We will repeat an EKG tomorrow 01/23/2019 and if unchanged or improved and patient remains without symptoms she can be discharged on Monday01/23/2019 and follow up with Dr. Gonsalez for consideration of 1. ischemic evaluation, 2. Ongoing rhythm vs. rate control 3. Mitral stenosis evaluation/management Thank you for allowing me to participate in the cardiovascular care of this patient. Please do not hesitate to contact our service with any questions or concerns. Case discussed with Dr. Newton. Attending: Yaniv Newton <Yaniv Newton - Last Filed: 01/22/19 16:14> Medications Active Medications: Acetaminophen (Tylenol Tab*) 650 mg PO Q4H PRN PRN Reason: FEVER/PAIN Last Admin: 01/22/19 08:49 Dose: 650 mg Hydrocodone Bitart/Acetaminophen ([place] 10/325 (Nf)) 1 tab PO Q6H PRN PRN Reason: PAIN - SEVERE Last Admin: 01/21/19 19:06 Dose: 1 tab Albuterol/Ipratropium (Duoneb (Albuterol 2.5 Mg/Ipratropium 0.5 Mg)) 1 neb INH [id number] AWAKE PRN PRN Reason: sob/wheexing Amiodarone HCl (Cordarone Tab*) 200 mg PO DAILY [facility] Amitriptyline HCl (Elavil Tab*) 25 mg PO DAILY [facility] Last Admin: 01/22/19 08:47 Dose: 25 mg Apixaban (Eliquis*) 5 mg PO BID [facility] Last Admin: 01/22/19 08:48 Dose: 5 mg Diltiazem HCl (Cardizem Cd Cap*) 180 mg PO DAILY [facility] Last Admin: 01/22/19 08:47 Dose: 180 mg Docusate Sodium (Colace Cap*) 100 mg PO DAILY [facility] Last Admin: 01/22/19 08:51 Dose: Not Given Doxycycline Hyclate (Vibramycin Cap(*)) 100 mg PO BID [facility] Last Admin: 01/22/19 08:48 Dose: 100 mg Duloxetine HCl (Cymbalta Cap*) 40 mg PO DAILY [facility] Ferrous Gluconate (Fergon Tab*) 324 mg PO DAILY [facility] Last Admin: 01/22/19 08:48 Dose: 324 mg Furosemide (Lasix Tab*) 20 mg PO DAILY [facility] Gabapentin (Neurontin Cap(*)) 300 mg PO TID [facility] Last Admin: 01/22/19 14:59 Dose: 300 mg Ceftriaxone Sodium 1 gm/ (Sodium Chloride) 50 mls @ 100 mls/hr IVPB Q24H [facility] Last Admin: 01/21/19 20:23 Dose: 100 mls/hr Pantoprazole Sodium (Protonix Tab*) 40 mg PO DAILY [facility] Last Admin: 01/22/19 08:48 Dose: 40 mg Ropinirole HCl (Requip Tab*) 2 mg PO BEDTIME [facility] Last Admin: 01/21/19 22:29 Dose: 2 mg Spironolactone (Aldactone Tab*) 25 mg PO DAILY [facility] Last Admin: 01/22/19 08:48 Dose: 25 mg Objective Vital Signs: Temp Pulse Resp BP Pulse Ox 97.9 F 59 16 92/50 93 01/22/19 11:36 01/22/19 11:36 01/22/19 14:59 01/22/19 11:36 01/22/19 11:36 Laboratory Results: 01/22/19 06:32 01/22/19 06:32 INR (Anticoag Therapy) 1.35 (0.82-1.09) H 01/20/19 15:43 Total Bilirubin 0.60 mg/dL (0.2-1.0) 01/20/19 15:43 AST 25 U/L (13-39) 01/20/19 15:43 ALT 31 U/L (7-52) 01/20/19 15:43 Alkaline Phosphatase 77 U/L (34-104) 01/20/19 15:43 Total Protein 6.6 g/dL (6.4-8.9) 01/20/19 15:43 Albumin 3.8 g/dL (3.2-5.2) 01/20/19 15:43 Globulin 2.8 g/dL (2-4) 01/20/19 15:43 Albumin/Globulin Ratio 1.4 (1-3) 01/20/19 15:43 Triglycerides 63 mg/dL 01/21/19 04:54 Cholesterol 82 mg/dL 01/21/19 04:54 LDL Cholesterol 37 mg/dL 01/21/19 04:54 HDL Cholesterol 32.1 mg/dL 01/21/19 04:54 TSH 1.76 mcIU/mL (0.34-5.60) 01/20/19 15:43 01/20/19 01/21/19 15:43 04:54 Troponin I 0.00 0.01 Assessment/Plan Chart reviewed , patient examined. D/w Evan Fern. Agree with plan. Will continue to monitor rhythm and qtc. will reduce diltiazem due to potential interaction with amio and relatively low resting hr.
[2019-01-22] MEDS ORDERED: Furosemide IV* 10 MG/ML 2 ML VIAL (20 MG) IV ONE (11:42)
[2019-01-22] MEDS: rOPINIRole TAB* 1 MG PO SCH (21:01)
[2019-01-22] MEDS: cefTRIAXone(*) 1 GM in NS 0.9% 50 ML* 50 ML IVPB SCH (21:01)
[2019-01-22] MEDS: Hydrocodone/Acetamin 10/325 1 TAB PO PRN (21:04)
[2019-01-23] MEDS ORDERED: Potassium Chlor TAB* 20 MEQ TAB.ER PO ONE (08:43)
--- NOTE | 2019-01-23 10:03 | PN ---
<Sola Shirley - Last Filed: 01/23/19 09:57> Subjective Date of Service: 01/23/19 - PAF started on Amiodarone therapy. Interval History: Shy Ricardo is a 53 year old woman with a history as below. Patient was admitted with 2 weeks of dyspnea. She was at [facility] and given rate control medications for atrial fibrillation. Symptoms continued to worsen. She developed orthopnea, abdomen bloating sensation, and right sided chest discomfort. She was admitted and found with rapid atrial fibrillation and CHF. She spontaneously converted to sinus rhythm on a diltiazem gtt and she feels markedly improved and is able to ambulate to the bathroom without symptoms. She does have a known history of paroxysmal atrial fibrillation which she cannot feel. She states shortness of breath has improved, denies palpitations, sensation of heart racing or dizziness. She reports good urinary output after receiving IV lasix yesterday. Medications Active Medications: Acetaminophen (Tylenol Tab*) 650 mg PO Q4H PRN PRN Reason: FEVER/PAIN Last Admin: 01/22/19 08:49 Dose: 650 mg Hydrocodone Bitart/Acetaminophen ([place] 10/325 (Nf)) 1 tab PO Q6H PRN PRN Reason: PAIN - SEVERE Last Admin: 01/22/19 21:04 Dose: 1 tab Albuterol/Ipratropium (Duoneb (Albuterol 2.5 Mg/Ipratropium 0.5 Mg)) 1 neb INH [id number] AWAKE PRN PRN Reason: sob/wheexing Amiodarone HCl (Cordarone Tab*) 200 mg PO DAILY [facility] Amitriptyline HCl (Elavil Tab*) 25 mg PO DAILY [facility] Last Admin: 01/22/19 08:47 Dose: 25 mg Apixaban (Eliquis*) 5 mg PO BID [facility] Last Admin: 01/22/19 21:01 Dose: 5 mg Diltiazem HCl (Cardizem Cd Cap*) 120 mg PO DAILY [facility] Docusate Sodium (Colace Cap*) 100 mg PO DAILY [facility] Last Admin: 01/22/19 08:51 Dose: Not Given Doxycycline Hyclate (Vibramycin Cap(*)) 100 mg PO BID [facility] Last Admin: 01/22/19 21:01 Dose: 100 mg Duloxetine HCl (Cymbalta Cap*) 40 mg PO DAILY [facility] Ferrous Gluconate (Fergon Tab*) 324 mg PO DAILY [facility] Last Admin: 01/22/19 08:48 Dose: 324 mg Furosemide (Lasix Tab*) 20 mg PO DAILY [facility] Gabapentin (Neurontin Cap(*)) 300 mg PO TID [facility] Last Admin: 01/22/19 21:01 Dose: 300 mg Ceftriaxone Sodium 1 gm/ (Sodium Chloride) 50 mls @ 100 mls/hr IVPB Q24H [facility] Last Admin: 01/22/19 21:01 Dose: 100 mls/hr Pantoprazole Sodium (Protonix Tab*) 40 mg PO DAILY [facility] Last Admin: 01/22/19 08:48 Dose: 40 mg Ropinirole HCl (Requip Tab*) 2 mg PO BEDTIME [facility] Last Admin: 01/22/19 21:01 Dose: 2 mg Spironolactone (Aldactone Tab*) 25 mg PO DAILY [facility] Last Admin: 01/22/19 08:48 Dose: 25 mg Objective Vital Signs: Temp Pulse Resp BP Pulse Ox 97.8 F 65 16 122/77 95 01/23/19 07:54 01/23/19 07:54 01/23/19 07:54 01/23/19 07:54 01/23/19 07:54 Oxygen Devices in Use Now: None Appearance: nad, pleasant Ears/Nose/Mouth/Throat: Mucous Membranes Moist Neck: Trachea Midline, - - uncertain jvp Respiratory: Symmetrical Chest Expansion and Respiratory Effort, - Cardiovascular: RRR, No Edema, - - distant, no significant murmur Abdominal: - - obese, soft Extremities: No Edema Skin: No Rash or Ulcers Neurological: Alert and Oriented x 3 Lines/Tubes/Other Access: Clean, Dry and Intact Peripheral IV Laboratory Results: 01/22/19 06:32 01/22/19 06:32 INR (Anticoag Therapy) 1.35 (0.82-1.09) H 01/20/19 15:43 Total Bilirubin 0.60 mg/dL (0.2-1.0) 01/20/19 15:43 AST 25 U/L (13-39) 01/20/19 15:43 ALT 31 U/L (7-52) 01/20/19 15:43 Alkaline Phosphatase 77 U/L (34-104) 01/20/19 15:43 Total Protein 6.6 g/dL (6.4-8.9) 01/20/19 15:43 Albumin 3.8 g/dL (3.2-5.2) 01/20/19 15:43 Globulin 2.8 g/dL (2-4) 01/20/19 15:43 Albumin/Globulin Ratio 1.4 (1-3) 01/20/19 15:43 Triglycerides 63 mg/dL 01/21/19 04:54 Cholesterol 82 mg/dL 01/21/19 04:54 LDL Cholesterol 37 mg/dL 01/21/19 04:54 HDL Cholesterol 32.1 mg/dL 01/21/19 04:54 TSH 1.76 mcIU/mL (0.34-5.60) 01/20/19 15:43 01/20/19 01/21/19 15:43 04:54 Troponin I 0.00 0.01 Laboratory Results - last 24 hr 01/22/19 10:34 Digoxin 0.4 L Diagnostic Imaging: Cardiac Testing: Echocardiogram - (07/30/2018) Normal LV function EF 65% Left atrial enlargement Mild AR Mod/severe Mitral Stenosis Mean Grad 12 mmHg PHT 136 ms Trace TR Mild Pulm HTN Transthoracic Echocardiogram Study Date: 01/21/2019 Summary: - Procedure narrative: Transthoracic echocardiography was performed. Image quality was suboptimal. The study was technically limited due to poor acoustic window availability. Intravenous Definity , 4 mlswas administered. - Left ventricle: The cavity size is at the upper limits of normal. Wall thickness is normal. Systolic function is at the lower limits of normal. The estimated ejection fraction is 50-55%. Wall motion is normal; there are no regional wall motion abnormalities. - Right ventricle: The cavity size is mildly reduced. Systolic function is mildly reduced. - Mitral valve: Not well visualized, suspect rheumatic mitral stenosis The findings are consistent with moderate to severe stenosis according to updated guidelines. The presence of left atrium diliation and atrial arrhythmia presentation argues for clinically significant mitral stenosis. There is mild regurgitation. The pressure half-time is 208 ms. The mean diastolic gradient is 6.0 mm Hg while in sinus rhythm with a heart rate of 63 bpm The valve area by pressure half-time is 1.1 cm^2. Exam Date: 01/20/19 CTA CHEST IMPRESSION: 1. Sequela of findings concerning for pulmonary edema potentially in the setting of heart failure, however superimposed pneumonia cannot be excluded. 2. No CTA evidence of pulmonary embolism. EKG Data: ekg 01/20/2019: Afib 174 bpm, no ischemic st changes ekg post-afib: sinus bradycardia, LAE, Precordial and 1/aVL TWI. I calculated qtc at 450 ms. the T wave inversions are new since 08/2018 although this was a month after the prior rapid afib ekg from 07/27/2018 01/22/2019 ECG; Sinus rhythm rate 67. QTc 553. anterolateral TW abnormalities comparable to 01/21/2019 ECG 01/23/2019; Sinus rhythm rate 64, QTc 565. anterolateral TW depression comparable to prior ECG. Assessment/Plan #1 h/o PAF; Currently in NSR. On Eliquis 5mg Po BID, Amiodarone 200mg/day and Cardizem therapy. Amio and CCB reduced yesterday due to QTc prolongation. Primary team discontinued other medications last night that can potentiate QTc prolongation. She is anxious to go home. QTc today is 537 corrected by bazett formula. Given today will be the first day since medication changes recommend another night of monitoring. If QTc is not improving by tomorrow's ECG will stop Amiodarone Therapy. Continue OAC. d/w Dr gonsalez about continuing Eliquis versus transitioning to coumadin given h/o MS. #2 Moderate to Severe MS; patient presented with decompensated heart failure. She is to f/u outpatient with Dr. Gonsalez in two weeks to discuss evaluation. #3 Abnormal ECG; Patient has new anterolateral TW inversion. No c/o chest pain. Troponin normal. WM normal on echo. Will need to f/u with Dr. Gonsalez to discuss ischemic evaluation in addition to further MV evaluation. #4 Dispositon pending course. D/W Dr Newton who agrees with above assessment and plan. Attending: Yaniv Newton <Yaniv Newton - Last Filed: 01/23/19 13:28> Medications Active Medications: Acetaminophen (Tylenol Tab*) 650 mg PO Q4H PRN PRN Reason: FEVER/PAIN Last Admin: 01/22/19 08:49 Dose: 650 mg Hydrocodone Bitart/Acetaminophen ([place] 10/325 (Nf)) 1 tab PO Q6H PRN PRN Reason: PAIN - SEVERE Last Admin: 01/23/19 13:13 Dose: 1 tab Albuterol/Ipratropium (Duoneb (Albuterol 2.5 Mg/Ipratropium 0.5 Mg)) 1 neb INH [id number] AWAKE PRN PRN Reason: sob/wheexing Amiodarone HCl (Cordarone Tab*) 200 mg PO DAILY [facility] Last Admin: 01/23/19 10:13 Dose: 200 mg Amitriptyline HCl (Elavil Tab*) 25 mg PO DAILY [facility] Last Admin: 01/23/19 10:12 Dose: 25 mg Apixaban (Eliquis*) 5 mg PO BID [facility] Last Admin: 01/23/19 10:11 Dose: 5 mg Diltiazem HCl (Cardizem Cd Cap*) 120 mg PO DAILY [facility] Docusate Sodium (Colace Cap*) 100 mg PO DAILY [facility] Last Admin: 01/23/19 10:12 Dose: 100 mg Doxycycline Hyclate (Vibramycin Cap(*)) 100 mg PO BID [facility] Last Admin: 01/23/19 10:12 Dose: 100 mg Duloxetine HCl (Cymbalta Cap*) 40 mg PO DAILY [facility] Last Admin: 01/23/19 10:13 Dose: 40 mg Ferrous Gluconate (Fergon Tab*) 324 mg PO DAILY [facility] Last Admin: 01/23/19 10:11 Dose: 324 mg Furosemide (Lasix Tab*) 20 mg PO DAILY [facility] Last Admin: 01/23/19 10:12 Dose: 20 mg Gabapentin (Neurontin Cap(*)) 300 mg PO TID [facility] Last Admin: 01/23/19 13:12 Dose: 300 mg Ceftriaxone Sodium 1 gm/ (Sodium Chloride) 50 mls @ 100 mls/hr IVPB Q24H [facility] Last Admin: 01/22/19 21:01 Dose: 100 mls/hr Pantoprazole Sodium (Protonix Tab*) 40 mg PO DAILY [facility] Last Admin: 01/23/19 10:11 Dose: 40 mg Ropinirole HCl (Requip Tab*) 2 mg PO BEDTIME [facility] Last Admin: 01/22/19 21:01 Dose: 2 mg Spironolactone (Aldactone Tab*) 25 mg PO DAILY [facility] Last Admin: 01/23/19 10:12 Dose: 25 mg Objective Vital Signs: Temp Pulse Resp BP Pulse Ox 97.8 F 64 20 109/64 95 01/23/19 07:54 01/23/19 10:06 01/23/19 13:15 01/23/19 10:06 01/23/19 07:54 Laboratory Results: 01/22/19 06:32 01/22/19 06:32 INR (Anticoag Therapy) 1.35 (0.82-1.09) H 01/20/19 15:43 Total Bilirubin 0.60 mg/dL (0.2-1.0) 01/20/19 15:43 AST 25 U/L (13-39) 01/20/19 15:43 ALT 31 U/L (7-52) 01/20/19 15:43 Alkaline Phosphatase 77 U/L (34-104) 01/20/19 15:43 Total Protein 6.6 g/dL (6.4-8.9) 01/20/19 15:43 Albumin 3.8 g/dL (3.2-5.2) 01/20/19 15:43 Globulin 2.8 g/dL (2-4) 01/20/19 15:43 Albumin/Globulin Ratio 1.4 (1-3) 01/20/19 15:43 Triglycerides 63 mg/dL 01/21/19 04:54 Cholesterol 82 mg/dL 01/21/19 04:54 LDL Cholesterol 37 mg/dL 01/21/19 04:54 HDL Cholesterol 32.1 mg/dL 01/21/19 04:54 TSH 1.76 mcIU/mL (0.34-5.60) 01/20/19 15:43 01/20/19 01/21/19 15:43 04:54 Troponin I 0.00 0.01 Assessment/Plan Patient seen/chart reviewed/ d/w Ms. Shirley. agree with plan. will follow QTc on meds as adjusted.
[2019-01-23] MEDS: Ferrous Gluconate TAB* 324 MG TAB PO SCH (10:11)
[2019-01-23] MEDS: Apixaban* 5 MG TAB PO SCH ×2 (10:11→21:00)
[2019-01-23] MEDS: Pantoprazole TAB * 40 MG TAB PO SCH (10:11)
[2019-01-23] MEDS: Docusate CAP* 100 MG PO SCH (10:12)
[2019-01-23] MEDS: DOXYcycline CAP(*) 100 MG PO SCH ×2 (10:12→21:00)
[2019-01-23] MEDS: Gabapentin CAP(*) 300 MG PO SCH ×3 (10:12→21:00)
[2019-01-23] MEDS: Spironolactone TAB* 25 MG PO SCH (10:12)
[2019-01-23] MEDS: Furosemide TAB* 20 MG PO SCH (10:12)
[2019-01-23] MEDS: Amitriptyline TAB* 25 MG PO SCH (10:12)
[2019-01-23] MEDS: Amiodarone TAB* 400 MG PO SCH (10:13)
[2019-01-23] MEDS: DULoxetine DR CAP* 20 MG CAP.DR PO SCH (10:13)
--- NOTE | 2019-01-23 13:06 | PN ---
Subjective Date of Service: 01/23/19 Interval History: No acute issues overnight No chest pain, no shortness of breath, no palpitations Family History: Unchanged from Admission Social History: Unchanged from Admission Past Medical History: Unchanged from Admission Objective Active Medications: Acetaminophen (Tylenol Tab*) 650 mg PO Q4H PRN PRN Reason: FEVER/PAIN Last Admin: 01/22/19 08:49 Dose: 650 mg Hydrocodone Bitart/Acetaminophen ([place] 10/325 (Nf)) 1 tab PO Q6H PRN PRN Reason: PAIN - SEVERE Last Admin: 01/22/19 21:04 Dose: 1 tab Albuterol/Ipratropium (Duoneb (Albuterol 2.5 Mg/Ipratropium 0.5 Mg)) 1 neb INH [id number] AWAKE PRN PRN Reason: sob/wheexing Amiodarone HCl (Cordarone Tab*) 200 mg PO DAILY [facility] Last Admin: 01/23/19 10:13 Dose: 200 mg Amitriptyline HCl (Elavil Tab*) 25 mg PO DAILY [facility] Last Admin: 01/23/19 10:12 Dose: 25 mg Apixaban (Eliquis*) 5 mg PO BID [facility] Last Admin: 01/23/19 10:11 Dose: 5 mg Diltiazem HCl (Cardizem Cd Cap*) 120 mg PO DAILY [facility] Docusate Sodium (Colace Cap*) 100 mg PO DAILY [facility] Last Admin: 01/23/19 10:12 Dose: 100 mg Doxycycline Hyclate (Vibramycin Cap(*)) 100 mg PO BID [facility] Last Admin: 01/23/19 10:12 Dose: 100 mg Duloxetine HCl (Cymbalta Cap*) 40 mg PO DAILY [facility] Last Admin: 01/23/19 10:13 Dose: 40 mg Ferrous Gluconate (Fergon Tab*) 324 mg PO DAILY [facility] Last Admin: 01/23/19 10:11 Dose: 324 mg Furosemide (Lasix Tab*) 20 mg PO DAILY [facility] Last Admin: 01/23/19 10:12 Dose: 20 mg Gabapentin (Neurontin Cap(*)) 300 mg PO TID [facility] Last Admin: 01/23/19 10:12 Dose: 300 mg Ceftriaxone Sodium 1 gm/ (Sodium Chloride) 50 mls @ 100 mls/hr IVPB Q24H [facility] Last Admin: 01/22/19 21:01 Dose: 100 mls/hr Pantoprazole Sodium (Protonix Tab*) 40 mg PO DAILY [facility] Last Admin: 01/23/19 10:11 Dose: 40 mg Ropinirole HCl (Requip Tab*) 2 mg PO BEDTIME [facility] Last Admin: 01/22/19 21:01 Dose: 2 mg Spironolactone (Aldactone Tab*) 25 mg PO DAILY [facility] Last Admin: 01/23/19 10:12 Dose: 25 mg Vital Signs - 8 hr 01/23/19 01/23/19 01/23/19 07:54 08:00 10:06 Temperature 97.8 F Pulse Rate 65 64 Respiratory 16 16 Rate Blood Pressure 122/77 109/64 (mmHg) O2 Sat by Pulse 95 Oximetry 01/23/19 10:12 Temperature Pulse Rate Respiratory 16 Rate Blood Pressure (mmHg) O2 Sat by Pulse Oximetry Oxygen Devices in Use Now: None Appearance: Lying in bed, not in distress Eyes: PERRLA Ears/Nose/Mouth/Throat: Mucous Membranes Moist Respiratory: Symmetrical Chest Expansion and Respiratory Effort, Clear to Auscultation Cardiovascular: NL Sounds; No Murmurs; No JVD, RRR, No Edema Abdominal: NL Sounds; No Tenderness; No Distention, No Hepatosplenomegaly Extremities: No Edema Neurological: Alert and Oriented x 3 Result Diagrams: 01/22/19 06:32 01/22/19 06:32 Microbiology and Other Data: Microbiology 01/20/19 23:12 Legionella Urinary Antigen - Final Urine Negative Legionella Antigen 01/21/19 00:00 Streptococcus pneumoniae Ag Screen - Final Urine Negative S. pneumo Antigen 01/20/19 21:45 Nasal Screen MRSA (PCR) - Final Nasal Mrsa Not Detected Assess/Plan/Problems-Billing Assessment: Ms. Ricardo is a 53 y.o female with hx of afib on eliquis, htn, depression, anxiety, copd, diastolic dysfunction who presented to the ER with shortness of breath found to have rapid atrial fibrillaton - Patient Problems (1) Atrial fibrillation with rapid ventricular response Current Visit: Yes Status: Acute Code(s): I48.91 - UNSPECIFIED ATRIAL FIBRILLATION SNOMED Code(s): 843996309095294 Comment: status post diltiazem drip. continue amiodraone, cardizem on eliquis EKG with Qt prolongation cardio recommends outpatient ischemia work up. Echo with Normal wall motion and EF 50-55%, moderate to severe mitral stenosis (2) DVT prophylaxis Current Visit: Yes Status: Acute Code(s): Z29.9 - ENCOUNTER FOR PROPHYLACTIC MEASURES, UNSPECIFIED SNOMED Code(s): 434063783 Comment: santiago (3) Shortness of breath Current Visit: Yes Status: Acute Code(s): R06.02 - SHORTNESS OF BREATH SNOMED Code(s): 681872250 Comment: Suspect her shortness of breath is related to her underlying Rapid afib and well as pulmonary edema with possible super improsed pneumonia continue rocephin and doxycycline. (4) QT prolongation Current Visit: Yes Status: Acute Code(s): R94.31 - ABNORMAL ELECTROCARDIOGRAM [ECG] [EKG] SNOMED Code(s): 819679265 Comment: venlfaxine changed to duoxetine d/c'ed tizanidine repeat EKG tomorrow, depending on Qt interval, cardio might change amiodarone dose/or discontinue it. (5) Pulmonary edema Current Visit: Yes Status: Acute Code(s): J81.1 - CHRONIC PULMONARY EDEMA SNOMED Code(s): 55642131 Comment: Received IV lasix, continue PO lasix. (6) Mitral valve stenosis, non-rheumatic Current Visit: Yes Status: Acute Code(s): I34.2 - NONRHEUMATIC MITRAL (VALVE ) STENOSIS SNOMED Code(s): 654080012 Comment: follow up with cardiology as outpatient
[2019-01-23] MEDS: Hydrocodone/Acetamin 10/325 1 TAB PO PRN ×2 (13:13→21:18)
[2019-01-23] MEDS: rOPINIRole TAB* 1 MG PO SCH (21:00)
[2019-01-23] MEDS: Acetaminophen TAB* 325 MG PO PRN (21:00)
[2019-01-23] MEDS: cefTRIAXone(*) 1 GM in NS 0.9% 50 ML* 50 ML IVPB SCH (21:00)
[2019-01-24 07:10] LABS: CO2 Carbon Dioxide 23 mmol/L (22-32); Calcium 8.8 mg/dL (8.6-10.3); Chloride 107 mmol/L (101-111); Sodium 138 mmol/L (135-145)
[2019-01-24 07:16] LABS: BUN/Creatinine Ratio 10.9 (8-20); Blood Urea Nitrogen 7 mg/dL (6-24); EGFR African American 117.9 (>60); EGFR Non-African American 97.4 (>60); Glucose 80 mg/dL (70-100)
[2019-01-24 07:35] LABS: Anion Gap 8 mmol/L (2-11)
[2019-01-24] MEDS: DOXYcycline CAP(*) 100 MG PO SCH ×2 (09:30→19:58)
[2019-01-24] MEDS: DULoxetine DR CAP* 20 MG CAP.DR PO SCH (09:30)
[2019-01-24] MEDS: Gabapentin CAP(*) 300 MG PO SCH ×3 (09:30→19:58)
[2019-01-24] MEDS: Diltiazem CD CAP* 120 MG PO SCH (09:30)
[2019-01-24] MEDS: Ferrous Gluconate TAB* 324 MG TAB PO SCH (09:31)
[2019-01-24] MEDS: Apixaban* 5 MG TAB PO SCH ×2 (09:31→19:59)
[2019-01-24] MEDS: Furosemide TAB* 20 MG PO SCH (09:31)
[2019-01-24] MEDS: Pantoprazole TAB * 40 MG TAB PO SCH (09:31)
[2019-01-24] MEDS: Docusate CAP* 100 MG PO SCH (09:31)
[2019-01-24] MEDS: Amitriptyline TAB* 25 MG PO SCH (09:31)
[2019-01-24] MEDS: Spironolactone TAB* 25 MG PO SCH (09:32)
[2019-01-24] MEDS: Amiodarone TAB* 400 MG PO SCH (09:32)
--- NOTE | 2019-01-24 13:23 | PN ---
Subjective Date of Service: 01/24/19 Interval History: Pt has no complaints, wants to go home Family History: Unchanged from Admission Social History: Unchanged from Admission Past Medical History: Unchanged from Admission Objective Active Medications: Acetaminophen (Tylenol Tab*) 650 mg PO Q4H PRN PRN Reason: FEVER/PAIN Last Admin: 01/23/19 21:00 Dose: 650 mg Hydrocodone Bitart/Acetaminophen ([place] 10/325 (Nf)) 1 tab PO Q6H PRN PRN Reason: PAIN - SEVERE Last Admin: 01/23/19 21:18 Dose: 1 tab Albuterol/Ipratropium (Duoneb (Albuterol 2.5 Mg/Ipratropium 0.5 Mg)) 1 neb INH [id number] AWAKE PRN PRN Reason: sob/wheexing Amiodarone HCl (Cordarone Tab*) 200 mg PO DAILY [facility] Last Admin: 01/24/19 09:32 Dose: 200 mg Amitriptyline HCl (Elavil Tab*) 25 mg PO DAILY [facility] Last Admin: 01/24/19 09:31 Dose: 25 mg Apixaban (Eliquis*) 5 mg PO BID [facility] Last Admin: 01/24/19 09:31 Dose: 5 mg Diltiazem HCl (Cardizem Cd Cap*) 120 mg PO DAILY [facility] Last Admin: 01/24/19 09:30 Dose: 120 mg Docusate Sodium (Colace Cap*) 100 mg PO DAILY [facility] Last Admin: 01/24/19 09:31 Dose: 100 mg Doxycycline Hyclate (Vibramycin Cap(*)) 100 mg PO BID [facility] Last Admin: 01/24/19 09:30 Dose: 100 mg Duloxetine HCl (Cymbalta Cap*) 40 mg PO DAILY [facility] Last Admin: 01/24/19 09:30 Dose: 40 mg Ferrous Gluconate (Fergon Tab*) 324 mg PO DAILY [facility] Last Admin: 01/24/19 09:31 Dose: 324 mg Furosemide (Lasix Tab*) 20 mg PO DAILY [facility] Last Admin: 01/24/19 09:31 Dose: 20 mg Gabapentin (Neurontin Cap(*)) 300 mg PO TID [facility] Last Admin: 01/24/19 09:30 Dose: 300 mg Ceftriaxone Sodium 1 gm/ (Sodium Chloride) 50 mls @ 100 mls/hr IVPB Q24H [facility] Last Admin: 01/23/19 21:00 Dose: 100 mls/hr Pantoprazole Sodium (Protonix Tab*) 40 mg PO DAILY [facility] Last Admin: 01/24/19 09:31 Dose: 40 mg Ropinirole HCl (Requip Tab*) 2 mg PO BEDTIME [facility] Last Admin: 01/23/19 21:00 Dose: 2 mg Spironolactone (Aldactone Tab*) 25 mg PO DAILY [facility] Last Admin: 01/24/19 09:32 Dose: 25 mg Vital Signs - 8 hr 01/24/19 01/24/19 01/24/19 07:26 08:00 09:30 Temperature 97.4 F Pulse Rate 67 Respiratory 16 16 16 Rate Blood Pressure 110/62 (mmHg) O2 Sat by Pulse 94 Oximetry Oxygen Devices in Use Now: None Appearance: 53 yo f in nAD, AAOx3 Eyes: No Scleral Icterus, PERRLA Ears/Nose/Mouth/Throat: NL Teeth, Lips, Gums, Mucous Membranes Moist Neck: NL Appearance and Movements; NL JVP Respiratory: Symmetrical Chest Expansion and Respiratory Effort, Clear to Auscultation Cardiovascular: RRR, No Edema, - - 2/6 MATY Abdominal: NL Sounds; No Tenderness; No Distention, No Hepatosplenomegaly Lymphatic: No Cervical Adenopathy Extremities: No Edema, No Clubbing, Cyanosis Skin: No Rash or Ulcers, No Nodules or Sclerosis Neurological: Alert and Oriented x 3, NL Muscle Strength and Tone Result Diagrams: 01/22/19 06:32 01/24/19 08:22 Microbiology and Other Data: Microbiology 01/20/19 23:12 Legionella Urinary Antigen - Final Urine Negative Legionella Antigen 01/21/19 00:00 Streptococcus pneumoniae Ag Screen - Final Urine Negative S. pneumo Antigen 01/20/19 21:45 Nasal Screen MRSA (PCR) - Final Nasal Mrsa Not Detected Assess/Plan/Problems-Billing Assessment: Ms. Ricardo is a 53 y.o female with hx of afib on eliquis, htn, depression, anxiety, copd, diastolic dysfunction who presented to the ER with shortness of breath found to have rapid atrial fibrillaton - Patient Problems (1) Atrial fibrillation with rapid ventricular response Comment: status post diltiazem drip. continue amiodarone, cardizem on eliquis EKG with Qt prolongation-today QTC>530-worse than yesterday cardio recommends outpatient ischemia work up as outpatient. Echo with Normal wall motion and EF 50-55%, moderate to severe mitral stenosis to be eval as outpatient by Dr. Gonsalez (2) HTN (hypertension) Comment: controled (3) Mitral valve stenosis, non-rheumatic Comment: follow up with cardiology as outpatient (4) Pulmonary edema Comment: Received IV lasix, continue PO lasix. today euvolemic (5) QT prolongation Comment: venlfaxine changed to duoxetine d/c'ed tizanidine repeat EKG today still with prolonged QTc (6) DVT prophylaxis Comment: santiago
[2019-01-24] MEDS: Acetaminophen TAB* 325 MG PO PRN (14:59)
[2019-01-24] MEDS: rOPINIRole TAB* 1 MG PO SCH (19:59)
[2019-01-24] MEDS: Hydrocodone/Acetamin 10/325 1 TAB PO PRN (20:03)
[2019-01-24] MEDS: cefTRIAXone(*) 1 GM in NS 0.9% 50 ML* 50 ML IVPB SCH (20:55)
[2019-01-24] MEDS ORDERED: Temazepam CAP* 15 MG PO SCH (21:00)
[2019-01-24] MEDS ORDERED: Melatonin 3 MG TAB PO SCH (22:00)
[2019-01-25 07:22] LABS: BUN/Creatinine Ratio 13.3 (8-20); Calcium 9.1 mg/dL (8.6-10.3); Potassium 3.9 mmol/L (3.5-5.0)
[2019-01-25] MEDS ORDERED: Metoprolol Tartrate IV* 1 MG/ML 5 ML VIAL ONE (08:06)
[2019-01-25] MEDS ORDERED: Metoprolol Tartrate IV* 1 MG/ML 5 ML VIAL IV PRN (08:08)
[2019-01-25] MEDS ORDERED: Diltiazem IV push/loading dose 5 MG/ML 5 ML vial (25 mg) IV SLOW PU ONE (08:16)
[2019-01-25] MEDS ORDERED: Diltiazem DRIP* 100 MG/100 ML ADDV.BAG IV SCH (09:00)
[2019-01-25] MEDS ORDERED: Diltiazem IV BAG* D5W Premix 125 MG/125 ML BAG IV SCH (09:00)
[2019-01-25] MEDS: Docusate CAP* 100 MG PO SCH (09:38)
[2019-01-25] MEDS: DOXYcycline CAP(*) 100 MG PO SCH (09:39)
[2019-01-25] MEDS: Ferrous Gluconate TAB* 324 MG TAB PO SCH (09:39)
[2019-01-25] MEDS: DULoxetine DR CAP* 20 MG CAP.DR PO SCH (09:39)
[2019-01-25] MEDS: Gabapentin CAP(*) 300 MG PO SCH (09:39)
[2019-01-25] MEDS: Apixaban* 5 MG TAB PO SCH (09:40)
[2019-01-25] MEDS: Pantoprazole TAB * 40 MG TAB PO SCH (09:40)
[2019-01-25] MEDS: Diltiazem CD CAP* 120 MG PO SCH (09:40)
[2019-01-25] MEDS: Amitriptyline TAB* 25 MG PO SCH (09:40)
[2019-01-25] MEDS ORDERED: Digoxin IV* 0.5 MG/2 ML AMP (0.25 MG/ML) IV SLOW PU ONE (09:57)
[2019-01-25] MEDS: Furosemide TAB* 20 MG PO SCH (11:01)
[2019-01-25] MEDS: Spironolactone TAB* 25 MG PO SCH (11:01)
[2019-01-25] MEDS ORDERED: Amiodarone TAB* 200 MG PO ONE (11:53)
[2019-01-25 12:08] VITALS: BP 111/55
--- NOTE | 2019-01-25 16:14 | DS ---
CC: Dr. Israel Gifford; Dr. Newton; Dr. Ajay Monroe; Dr. Gonsalez * DISCHARGE SUMMARY: DATE OF ADMISSION: 01/20/19 DATE OF DISCHARGE: 01/25/19 PRIMARY CARE PROVIDER: Dr. Israel Gifford. [employer] MAKER: Dr. Gonsalez. DISPOSITION AT DISCHARGE: Home. CONDITION AT DISCHARGE: Stable. DISCHARGE DIAGNOSES: 1. Shortness of breath due to paroxysmal atrial fibrillation. 2. Significant mitral stenosis. SECONDARY DIAGNOSES: 1. Obstructive sleep apnea. 2. History of paroxysmal atrial fibrillation, on chronic Eliquis. 3. Depression. 4. Anxiety. 5. Gastroesophageal reflux disease. 6. History of chronic obstructive pulmonary disease, not on oxygen. 7. History of diastolic dysfunction and diastolic congestive heart failure. 8. Status post gastric bypass surgery in the past. MEDICATIONS AT DISCHARGE: Include: 1. DuoNeb on a p.r.n. basis every 6 hours. 2. Amitriptyline 25 mg daily. 3. Apixaban 2.5 mg b.i.d. 4. Clotrimazole 1 application on a p.r.n. basis. 5. Colace 100 mg b.i.d. 6. Ferrous gluconate 325 mg daily. 7. Advair Diskus 250/50 one puff b.i.d. 8. Lasix 20 mg daily. 9. Gabapentin 300 mg 3 times a day. 10. [place] 10/325 mg 1 tablet every 6 hours p.r.n. 11. Protonix 40 mg daily. 12. Aldactone 25 mg daily. 13. Anoro 1 inhalation daily. 14. Amiodarone 200 mg daily. 15. Cardizem CD 120 mg daily. The last 2 medications are new medications, which is amiodarone and lowered diltiazem dose from 180 mg to 120 mg. CONSULTATIONS DURING THE HOSPITAL STAY: Included Dr. Monroe and Dr. Newton from Cardiology. HOSPITALIZATION COURSE: Shy Ricardo is a 53-year-old female with a history of COPD, who presented to the hospital complaining of shortness of breath, and she was noted to be in atrial fibrillation with rapid ventricular response. She was initially treated with Cardizem drip and then switched to amiodarone. Unfortunately, she had longer QT interval, which prolonged on amiodarone. Due to that, her Effexor was stopped and tizanidine was discontinued. She continued to have prolonged QT, and she did not receive a dose of amiodarone on the morning of 01/25/19, and on the same morning she went back into asymptomatic atrial fibrillation with a heart rate in the 140s. She was placed back on Cardizem drip and received also p.o. Cardizem and converted within a couple of hours. Once again, she was asymptomatic. After a long discussion with Dr. Newton, it was decided that the patient is to go home on Cardizem CD 120 mg daily and to continue amiodarone at 200 mg daily. Her Effexor was discontinued and the patient actually requested to have this discontinued. She stated that she "does not need it." Her tizanidine was also discontinued in fear of QT prolongation. Please also note that for the past couple of days the patient was asking to be discharged and she has requested to be discharged today also "no matter what." The patient was informed that she may go back into atrial fibrillation without being observed on her current medications for another 24 hours and she is aware of the risks. She is recommended to come back to the hospital if she becomes symptomatic again. Please also note that throughout her hospital stay there was a question of pneumonia and the patient was initially treated with ceftriaxone and doxycycline , which was not continued at discharge. The pneumonia was not proven. The patient's C-reactive protein at admission was 11.3. LABORATORY DATA AND STUDIES PERFORMED DURING THE HOSPITAL STAY: On 01/25/19, sodium of 139, potassium 3.9, chloride 106, carbon dioxide 24, BUN 8, creatinine 0.6. Troponins were negative throughout the hospital stay. Her cholesterol profile showed triglycerides of 63, cholesterol total of 82, LDL of 37, and HDL of 32. TSH was 1.7. CBC on 01/22/19: White blood cell count of 8.7, hemoglobin of 13.0, hematocrit of 38, MCV of 102, and platelets of 149. CTA of the chest obtained on 01/20/19, impression: "Sequelae of findings concerning for pulmonary edema potentially in the setting of heart failure. However, superimposed pneumonia cannot be excluded. No CTA evidence of pulmonary embolism." The patient's transthoracic echocardiogram obtained on 01/20/19 showed EF of 50 % to 55%. The study quality was limited due to poor acoustic window availability. The left cavity size was in the upper limits of normal. The right cavity size was mildly reduced. The mitral valve was not well visualized , suspect rheumatic mitral stenosis. The findings are consistent with moderate- to-severe stenosis and also presence of left atrial dilatation and history of arrhythmia presentation argues for clinically significant mitral stenosis. There was mild regurgitation. The pressure half-time was 208 milliseconds. The mean diastolic gradient is 6 mmHg and sinus rhythm with a heart rate of 63 beats per minute. The valve area by pressure half-time is 1.1 sq.cm." PHYSICAL EXAMINATION: At the time of discharge, blood pressure of 111/55, heart rate of 56 and regular, respiratory rate 18, oxygen saturation 96% on room air, temperature 98.6. General: The patient is a very pleasant 53-year- old female who is in no acute distress. Alert, awake, and oriented x3. HEENT: Head: Atraumatic, normocephalic. Eyes: Pupils are equal, reactive to light and accommodation. Oropharynx clear. Mucosa moist. Neck: Supple. No JVD. No bruits bilaterally. Cardiovascular: Regular rate and rhythm. No murmur. Respiratory: Clear to auscultation bilaterally. Abdomen: Soft, nontender. Bowel sounds are present in all 4 quadrants. Extremities: There is no edema. Pulses are +2 bilaterally. No clubbing or cyanosis. On neuro evaluation, speech is clear. Cranial nerves II through XII grossly intact. Motor strength is 5/5 bilaterally. On evaluation of the skin, no ecchymotic areas or rashes noted. FOLLOWUP AT DISCHARGE: The patient is recommended to follow up with Dr. Gonsalez with a scheduled appointment on 02/05/19 at 1:[address] Israel Gifford in 4 to 7 days after discharge. CONDITION AT DISCHARGE: Stable. DISPOSITION AT DISCHARGE: Discharged to home. Please note that this is a short summary of the patient's hospital stay. Please refer to further medical records for details. TIME SPENT: Approximately 40 minutes was spent on the patient's discharge. [id number]/CPS #: [id number] MTDD
== END 2019-01-25 13:56 | disposition home or self-care (01) | DRG 309 ==
LOC: ED 15:17 → MEDTELE 18:28 → ICU 21:32 → MEDTELE 01-21 10:14
PROVIDERS: ADMIT Internal Medicine; ATTEND Internal Medicine
PROC: 5A09357 Assistance with Respiratory Ventilation, Less than 24 Consecutive Hours, Continuous Positive Airway Pressure (ICD-10-PCS; principal; 2019-01-20)
DX: I48.0 Paroxysmal atrial fibrillation (principal); I50.32 Chronic diastolic (congestive) heart failure; F32.9 Major depressive disorder, single episode, unspecified; I11.0 Hypertensive heart disease with heart failure; E66.9 Obesity, unspecified; F17.210 Nicotine dependence, cigarettes, uncomplicated; I34.2 Nonrheumatic mitral (valve) stenosis; I45.81 Long QT syndrome; G47.33 Obstructive sleep apnea (adult) (pediatric); F41.9 Anxiety disorder, unspecified; K21.9 Gastro-esophageal reflux disease without esophagitis; J44.9 Chronic obstructive pulmonary disease, unspecified; Z98.84 Bariatric surgery status; Z79.01 Long term (current) use of anticoagulants; Z90.710 Acquired absence of both cervix and uterus; Z82.49 Family history of ischemic heart disease and other diseases of the circulatory system; Z68.42 Body mass index [BMI] 45.0-49.9, adult; Z83.3 Family history of diabetes mellitus; Z72.89 Other problems related to lifestyle; Z88.0 Allergy status to penicillin; Z80.9 Family history of malignant neoplasm, unspecified; Z83.49 Family history of other endocrine, nutritional and metabolic diseases
CPT/HCPCS: 36415; 71045; 71275; 80048; 80053; 80061; 80162; 81003; 83605; 83735; 84443; 84484; 85025; 85027; 85379; 85610; 86140; 87040; 87641; 87899; 93005; 93306; 94660; 99284; A9270-GY; C8929; J0456; J0696; J1160; J1940; J3490; Q9967

== ENCOUNTER 2019-03-12 15:45 | Emergency (ER) | payer MEDICARE, MEDICAID ==
[2019-03-12] MEDS ORDERED: Diltiazem IV push/loading dose 5 MG/ML 5 ML vial (25 mg) IV SLOW PU ONE (16:01)
[2019-03-12] MEDS ORDERED: NS 0.9% 1000 ML** 1,000 ML IV ONE (16:01)
[2019-03-12 16:25] LABS: ABS Lymphocytes 1.6 10^3/ul (1.0-4.8); ABS Monocytes 0.7 10^3/ul (0-0.8); ABS Neutrophils 7.6 10^3/ul (1.5-7.7); Eosinophil % 0.5 %; Hematocrit 47 % (35-47); Mean Corpuscular HGB Conc 34 g/dL (31-36); Mean Corpuscular Hemoglobin 34 pg (27-31); Mean Corpuscular Volume 100 fL (80-97); Mean Platelet Volume 8.1 fL (7.4-10.4); Nucleated Red Blood Cells % 0.1; Platelet Count 151 10^3/uL (150-450); Red Blood Count 4.71 10^6 /uL (3.70-4.87); Red Cell Distribution Width 14 % (10-15)
[2019-03-12 16:46] LABS: Albumin 3.9 g/dL (3.2-5.2); Albumin/Globulin Ratio 1.4 (1-3); BUN/Creatinine Ratio 7.5 (8-20); EGFR African American 111.8 (>60); EGFR Non-African American 92.4 (>60); Globulin 2.8 g/dL (2-4); Magnesium 1.9 mg/dL (1.9-2.7); Potassium 3.8 mmol/L (3.5-5.0); Total Bilirubin 0.5 mg/dL (0.2-1.0); Total Protein 6.7 g/dL (6.4-8.9); Troponin I 0.01 ng/mL (<0.04)
--- OUTSIDE RECORDS SUMMARY | 2019-03-12 17:15 | XMS REPORT | Continuity of Care Document ---
:1965 External Reference #:[id number] Author Name Alyssa Lemus MD, [facility], [facility] (transmitted by agent of provider Marylu Sofia) Address [address] [address] Care Team Providers Name Role Phone Israel Gifford D.O. - Internal Care Team Information Obstetrician Medicine Problems Description No Information Available Social History Type Date Description Comments Sex Unknown ETOH Use Occasionally consumes alcohol Tobacco Use Start: Unknown Patient is a current smoker, smokes every day Smoking Status Reviewed: 08/27/18 Patient is a current smoker, smokes every day Exercise Type/Frequency Does not exercise Allergies, Adverse Reactions, Alerts Active Allergies Reaction Severity Comments Date Penicillin hives 09/23/2015 Medications Active Medications SIG Qnty Indications Ordering Date Provider Bakari 1 by mouth every 6 Unknown 7.5-325mg hours as needed pain Tablets Gabapentin 1 by mouth three Unknown 300mg times a day Capsules Colace 1 tab every 12 hours 90caps Unknown 100mg Capsules as needed for constipation Naproxen 1 tablet with food Unknown 500mg by mouth twice a day Tablets Pantoprazole Sodium 1 by mouth every day Unknown 40mg Tablets DR Requip 1 tab by mouth 1-2 Unknown 2mg Tablets hours prior to bedtime Tizanidine HCL 1 three times a day Unknown 4mg as needed Capsules Mucinex 1 tab twice a day by Unknown 600mg Tablets mouth as needed ER 12HR Mirna Allergy 1 by mouth every day Unknown 60mg Tablets Effexor XR 1 by mouth every day Unknown 75mg Caps ER 24HR Cartia XT 1 by mouth every day Unknown 180mg Caps ER 24HR Ipratropium 1 unit every 6 hours Unknown [place]/Albuterol as needed Sulfate 0.5-2.5(3)mg/3ML Solution Anoro Ellipta 1 inhalation daily Unknown 62.5-25mcg/Inh Aerosol Eliquis 1 tab by mouth bid Unknown 2.5mg Tablets Magnesium daily Unknown 500mg Capsules Furosemide 1 by mouth every day Unknown 20mg Tablets Immunizations Description No Information Available Vital Signs Date Vital Result Comment 08/30/2018 9:10am Height 63 inches 5'3" Weight 230.00 lb with clothes and shoes Heart Rate 69 /min BP Systolic 98 mmHg left arm, large cuff, sitting BP Diastolic 58 mmHg left arm, large cuff, sitting BP Systolic Sitting 102 mmHg right arm, large cuff, sitting BP Diastolic Sitting 58 mmHg right arm, large cuff, sitting BP Systolic Standing 100 mmHg right arm, large cuff, standing BP Diastolic Standing 60 mmHg right arm, large cuff, standing Respiratory Rate 16 /min Body Temperature 98.5 F O2 % BldC Oximetry 93 % no O2 BMI (Body Mass Index) 40.7 kg/m2 Results Description No Information Available Procedures Date Code Description Status 09/20/2018 48307 Holter Monitor Review (24 hr)dr review & interp only Completed 09/14/2018 31192 ECG Monitor/Recording W/Visual Superimposition Scanning Completed 08/30/2018 90510 EKG, Interpretation Only Completed 07/30/2018 61221 ECHO Transthorasic Realtime 2D W Doppler & Color Flow Hosp Completed Medical Devices Description No Information Available Encounters Type Date Location Provider Dx Diagnosis Office Visit 08/30/2018 Tj Montez I48.0 Paroxysmal atrial 9:30a Cardiology Gumaro Gonsalez fibrillation I10 Essential (primary) hypertension Assessments Date Code Description Provider 09/20/2018 I49.1 Atrial premature depolarization Roula Gallegos M.D. 09/14/2018 I48.0 Paroxysmal atrial fibrillation Rachid Gonsalez M.D. 08/30/2018 I48.0 Paroxysmal atrial fibrillation Rachid Gonsalez M.D. 08/30/2018 I10 Essential (primary) hypertension Rachid Gonsalez M.D. 07/30/2018 I48.91 Unspecified atrial fibrillation Rachid Gonsalez M.D. Plan of Treatment Future Appointment(s):02/05/2019 1:45 pm - Rachid Gonsalez M.D. at [place] [facility] [place] - Rachid Gonsalez M.D.I48.0 Paroxysmal atrial fibrillationFollow up:1 [id number] Essential (primary) hypertension Functional Status Description No Information Available Mental Status Description No Information Available Referrals Description No Information Available
--- OUTSIDE RECORDS SUMMARY | 2019-03-12 17:15 | XMS REPORT | Continuity of Care Document ---
:1965 External Reference #:[id number] Author Name Marylu Sofia Care Team Providers Name Role Phone Israel Gifford D.O. Primary Care Physician Unavailable Payers Date Identification Numbers Payment Provider Subscriber Policy Number: [id number] [facility] ([facility]) Shy Ricardo PayID: [id number] [address] [place] [address] Policy Number: [id number] Medicaid Shy Ricardo Group Name: 1 1 [address] PayID: [id number] [place] [address] Family History Date Family Member(s) Observation Comments General Cancer General Diabetes General Hypertension General Thyroid Disease Social History Type Date Description Comments Sex Unknown Lives With Family Occupation Unemployed ETOH Use Occasionally consumes alcohol Tobacco Use Start: Unknown Patient is a current smoker, smokes every day Smoking Status Reviewed: 08/27/18 Patient is a current smoker, smokes every day Exercise Type/Frequency Does not exercise Allergies, Adverse Reactions, Alerts Active Allergies Reaction Severity Comments Date Penicillin hives 09/23/2015 Medications Active Medications SIG Qnty Indications Ordering Date Provider Furosemide 1 by mouth every day Unknown 20mg Tablets Magnesium daily Unknown 500mg Capsules Eliquis 1 tab by mouth bid Unknown 2.5mg Tablets Anoro Ellipta 1 inhalation daily Unknown 62.5-25mcg/Inh Aerosol Ipratropium 1 unit every 6 hours Unknown [place]/Albuterol as needed Sulfate 0.5-2.5(3)mg/3ML Solution Cartia XT 1 by mouth every day Unknown 180mg Caps ER 24HR Effexor XR 1 by mouth every day Unknown 75mg Caps ER 24HR Mirna Allergy 1 by mouth every day Unknown 60mg Tablets Mucinex 1 tab twice a day by Unknown 600mg Tablets mouth as needed ER 12HR Tizanidine HCL 1 three times a day Unknown 4mg as needed Capsules Requip 1 tab by mouth 1-2 Unknown 2mg Tablets hours prior to bedtime Pantoprazole Sodium 1 by mouth every day Unknown 40mg Tablets DR Naproxen 1 tablet with food Unknown 500mg by mouth twice a day Tablets Colace 1 tab every 12 hours 90caps Unknown 100mg Capsules as needed for constipation Gabapentin 1 by mouth three Unknown 300mg times a day Capsules [place] 1 by mouth every 6 Unknown 7.5-325mg hours as needed pain Tablets History Medications Ambien 1 by mouth every night Unknown - 08/27/2018 10mg Tablets at bedtime as needed sleep insomnia Prednisone 4 every day x 1 week, Unknown - 08/27/2018 5mg Tablets 3 every day x 1 week, 2 every day x 1 week, 1 every day x 1 week Levaquin 1 by mouth every day Unknown - 08/27/2018 500mg Tablets Amitriptyline HCL 1 pill by mouth at Unknown - 08/28/2018 25mg Tablets bedtime Advair Diskus 1 puff twice a day Unknown - 08/28/2018 250-50mcg/Dose Aerosol Furosemide 1 by mouth every day Unknown - 08/28/2018 20mg Tablets Vital Signs Date Vital Result Comment 08/30/2018 [...] O2 BMI (Body Mass Index) 40.7 kg/m2 Procedures Date Code Description Status 09/20/2018 66498 Holter Monitor Review (24 hr)dr review & interp only Completed 09/14/2018 82813 ECG Monitor/Recording W/Visual Superimposition Scanning Completed 08/30/2018 67113 EKG, Interpretation Only Completed 07/30/2018 89444 ECHO Transthorasic Realtime 2D W Doppler & Color Flow Hosp Completed Encounters Type Date Location Provider Dx Diagnosis Office Visit 08/30/2018 Tj Montez I48.0 Paroxysmal atrial 9:30a Cardiology Gumaro Gonsalez fibrillation I10 Essential (primary) hypertension Office Visit 09/23/2015 8:30a Orthopedic Pedro Thomas, S46.011A Strain of Services Of Gumaro musc/tend the C.M.A. rotator cuff of right shoulder, init S46.211A Strain of musc/fasc/tend prt biceps, right arm, init S53.401A Unspecified sprain of right elbow, initial encounter S43.401A Unspecified sprain of right shoulder joint, init encntr S50.01xA Contusion of right elbow, initial encounter S40.011A Contusion of right shoulder, initial encounter Plan of Treatment Future Appointment(s):02/05/2019 1:45 pm - Rachid Gonsalez M.D. at [facility] [place] [facility] [place] - Rachid Gonsalez M.D.I48.0 Paroxysmal atrial fibrillationFollow up:1 [id number] Essential (primary) hypertension
--- OUTSIDE RECORDS SUMMARY | 2019-03-12 17:15 | XMS REPORT | Continuity of Care Document ---
:1965 External Reference #:[id number] Author Name Rachid Gonsalez M.D. (transmitted by agent of provider Emily Ibanez) Address [facility] [place] [address] Care Team Providers Name Role Phone Israel Gifford D.O. 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 Medicine Problems Description No Information Available Social History Type Date Description Comments Sex Unknown ETOH Use Occasionally consumes alcohol Tobacco Use Start: Unknown Patient is a current about 2 packs a day smoker, smokes every day Smoking Status Reviewed: 03/07/19 Patient is a current about 2 packs a day smoker, smokes every day Exercise Does not exercise Type/Frequency Allergies, Adverse Reactions, Alerts Active Allergies Reaction Severity Comments Date Penicillin hives 09/23/2015 Medications Active Medications SIG Qnty Indications Ordering Date Provider Bakari 1 by mouth every 6 Unknown 7.5-325mg hours as needed pain Tablets Gabapentin 1 by mouth three Unknown 300mg times a day Capsules Colace 1 tab every 12 hours 90caps Unknown 100mg Capsules as needed for constipation Pantoprazole Sodium 1 by mouth every day Unknown 40mg Tablets DR Mucinex 1 tab twice a day by Unknown 600mg Tablets mouth as needed ER 12HR Cartia XT 1 by mouth every day Unknown 180mg Caps ER 24HR Ipratropium 1 unit every 6 hours Unknown [place]/Albuterol as needed Sulfate 0.5-2.5(3)mg/3ML Solution Anoro Ellipta 1 inhalation daily Unknown 62.5-25mcg/Inh Aerosol Eliquis 1 tab by mouth bid Unknown 2.5mg Tablets Furosemide 1 by mouth every day Unknown 20mg Tablets Immunizations Description No Information Available Vital Signs Date Vital Result Comment 03/07/2019 9:47am Height 63 inches 5'3" Weight 225.00 lb Heart Rate 71 /min BP Systolic Sitting 118 mmHg right arm-reg BP Diastolic Sitting 84 mmHg right arm-reg BP Systolic Standing 110 mmHg right-reg BP Diastolic Standing 80 mmHg right-reg Respiratory Rate 20 /min Body Temperature 98.5 F O2 % BldC Oximetry 98 % BMI (Body Mass Index) 39.9 kg/m2 02/07/2019 10:22am Height 63 inches 5'3" Weight 225.38 lb Heart Rate 87 /min BP Systolic Sitting 132 mmHg BP Diastolic Sitting 84 mmHg Respiratory Rate 18 /min Body Temperature 98.4 F O2 % BldC Oximetry 96 % BMI (Body Mass Index) 39.9 kg/m2 Results Description No Information Available Procedures Date Code Description Status 02/19/2019 18773 Moderate Sedation Services; Same Phys Intl 15 Mins; PT >= Completed 5 Years 02/19/2019 41660 Color Flow Doppler/Interp & Reprt Completed 02/19/2019 23404 Pulse Wave/Continuous-Interp.RPT Completed 02/19/2019 40796 Echocardiography, Transesophageal, Real Time W/Image 2D Completed W/W/O M-M 01/21/2019 82094 ECHO Transthorasic Realtime 2D W Doppler & Color Flow Hosp Completed 09/20/2018 06117 Holter Monitor Review (24 hr)dr review & interp only Completed 09/14/2018 42785 ECG Monitor/Recording W/Visual Superimposition Scanning Completed Medical Devices Description No Information Available Encounters Type Date Location Provider Dx Diagnosis Office Visit 03/07/2019 Tj Montez I48.0 Paroxysmal atrial 9:45a Cardiology Gumaro Gonsalez fibrillation I34.2 Nonrheumatic mitral (valve) stenosis I10 Essential (primary) hypertension Office Visit 02/07/2019 10:30a Tj Montez I48.0 Paroxysmal atrial Cardiology Gumaro Gonsalez fibrillation I34.2 Nonrheumatic mitral (valve) stenosis I10 Essential (primary) hypertension Office Visit 01/25/2019 [facility] Ashley Neli, I48.0 Paroxysmal atrial 12:03p steve Green M.D. fibrillation Hospitalists I34.2 Nonrheumatic mitral (valve) stenosis Office Visit 01/24/2019 [facility] Ashley Quinteros, I48.91 Unspecified 12:02p steve Green M.D. 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 Unspecified 12:02p steve Green M.D. 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 Unspecified 12:02p steve Green M.D. 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 Unspecified 12:01p Assocsteve, DISTANCE LEARNING TECHNICIAN atrial Hospitalists fibrillation F17.210 Nicotine dependence, cigarettes, uncomplicated I10 Essential (primary) hypertension Office Visit 01/20/2019 [facility] I48.91 Unspecified 12:00p Assbob,steve Marin NP atrial Hospitalists fibrillation R06.02 Shortness of breath Assessments Date Code Description Provider 03/07/2019 I48.0 Paroxysmal atrial fibrillation Rachid Gonsalez M.D. 03/07/2019 I34.2 Nonrheumatic mitral (valve) stenosis Rachid Gonsalez M.D. 03/07/2019 I10 Essential (primary) hypertension Rachid Gonsalez M.D. 02/19/2019 I48.91 Unspecified atrial fibrillation Rachid Gonsalez M.D. 02/07/2019 I48.0 Paroxysmal atrial fibrillation Rachid Gonsalez M.D. 02/07/2019 I34.2 Nonrheumatic mitral (valve) stenosis Rachid Gonsalez M.D. 02/07/2019 I10 Essential (primary) hypertension Rachid Gonsalez M.D. 01/25/2019 I48.0 Paroxysmal atrial fibrillation Ashley Quinteros M.D. 01/25/2019 I34.2 Nonrheumatic mitral (valve) stenosis Ashley Quinteros M.D. 01/24/2019 I48.91 Unspecified atrial fibrillation Ashley Quinteros M.D. 01/24/2019 I34.2 Nonrheumatic mitral (valve) stenosis Ashley Quinteros M.D. 01/24/2019 J81.1 Chronic pulmonary edema Ashley Quinteros M.D. 01/24/2019 I10 Essential (primary) hypertension Ashley Quinteros M.D. 01/24/2019 R94.31 Abnormal electrocardiogram [ECG] [EKG] Ashley Quinteros M.D. 01/23/2019 I48.0 Paroxysmal atrial fibrillation Sola Shirley NP 01/23/2019 I35.2 Nonrheumatic aortic (valve) stenosis Sola Shirley NP with insufficiency 01/23/2019 R94.31 Abnormal electrocardiogram [ECG] [EKG] Sola Shirley NP 01/23/2019 I48.91 Unspecified atrial fibrillation Ashley Quinteros M.D. 01/23/2019 I34.2 Nonrheumatic mitral (valve) stenosis Ashley Quinteros M.D. 01/23/2019 J81.1 Chronic pulmonary edema Ashley Quinteros M.D. 01/22/2019 I48.0 Paroxysmal atrial fibrillation Sola Shirley, DISTANCE LEARNING TECHNICIAN 01/22/2019 I50.9 Heart failure, unspecified Sola Shirley, DISTANCE LEARNING TECHNICIAN 01/22/2019 E66.9 Obesity, unspecified Sola Shirley, DISTANCE LEARNING TECHNICIAN 01/22/2019 Z72.0 Tobacco use Sola Shirley, DISTANCE LEARNING TECHNICIAN 01/22/2019 I35.2 Nonrheumatic aortic (valve) stenosis Sola Manehansa, DISTANCE LEARNING TECHNICIAN with insufficiency 01/22/2019 I48.91 Unspecified atrial fibrillation Ashley Quinteros M.D. 01/22/2019 J81.1 Chronic pulmonary edema Ashley Quinteros M.D. 01/22/2019 R94.31 Abnormal electrocardiogram [ECG] [EKG] Ashley Quinteros M.D. 01/21/2019 I48.0 Paroxysmal atrial fibrillation Ajay Monroe, DO [facility] 01/21/2019 E66.9 Obesity, unspecified Ajay Monroe, DO [facility] 01/21/2019 I50.9 Heart failure, unspecified Ajay Monroe, DO [facility] 01/21/2019 Z72.0 Tobacco use Ajay Monroe, DO [facility] 01/21/2019 I34.2 Nonrheumatic mitral (valve) stenosis Ajay Monroe, DO [facility] 01/21/2019 R06.02 Shortness of breath Ajay Monroe, DO [facility] 01/21/2019 I48.91 Unspecified atrial fibrillation Stephanie Marin, DISTANCE LEARNING TECHNICIAN 01/21/2019 F17.210 Nicotine dependence, cigarettes, Stephanie Marin, DISTANCE LEARNING TECHNICIAN uncomplicated 01/21/2019 I10 Essential (primary) hypertension Stephanie Tomas, DISTANCE LEARNING TECHNICIAN 01/20/2019 I48.91 Unspecified atrial fibrillation Stephanie Ndiayeckney, DISTANCE LEARNING TECHNICIAN 01/20/2019 R06.02 Shortness of breath Stephanie Gaytanney, DISTANCE LEARNING TECHNICIAN 09/20/2018 I49.1 Atrial premature depolarization Roula Gallegos M.D. 09/14/2018 I48.0 Paroxysmal atrial fibrillation Rachid Gonsalez M.D. Plan of Treatment 03/07/2019 - Rachid Gonsalez M.D.I48.0 Paroxysmal atrial fibrillationNew Labs: Pre Cath Panel, Ordered: 03/07/19New Orders:Cardiac Catheterization, Ordered: Follow up:1 week after cathRecommendations:Stop Eliquis 2 days before yivypxjdmB89.2 Nonrheumatic mitral (valve) sxujjytqY20 Essential (primary) hypertension Functional Status Description No Information Available Mental Status Description No Information Available Referrals Description No Information Available
--- OUTSIDE RECORDS SUMMARY | 2019-03-12 17:15 | XMS REPORT | Continuity of Care Document ---
:1965 External Reference #:[id number] Author Name Marylu Sofia Care Team Providers Name Role Phone Israel Gifford D.O. Primary Care Physician Unavailable Payers Date Identification Numbers Payment Provider Subscriber Policy Number: [id number] [facility] ([facility]) Shy Ricardo PayID: [id number] [address] [place] [address] Policy Number: [id number] Medicaid Shy Ricardo Group Name: 1 1 [address] PayID: [id number] [place] [address] Family History Date Family Member(s) Observation Comments [...] Ipratropium 1 unit every 6 hours Unknown [place]/Albuterol as needed Sulfate 0.5-2.5(3)mg/3ML Solution Cartia XT [...] three Unknown 300mg times a day Capsules [place] 1 by mouth every 6 Unknown 7.5-325mg [...] kg/m2 Procedures Date Code Description Status 09/20/2018 28723 Holter Monitor Review (24 hr)dr review & interp only Completed 09/14/2018 58804 ECG Monitor/Recording W/Visual Superimposition Scanning Completed 08/30/2018 44905 EKG, Interpretation Only Completed 07/30/2018 20827 ECHO Transthorasic Realtime 2D W Doppler & [...] 1:45 pm - Rachid Gonsalez M.D. at [place] [facility] AT [facility] [place]08/30/2018 - Rachid Gonsalez M.D.I48.0 Paroxysmal atrial fibrillationFollow up:1 eojynH99 Essential (primary) hypertension
--- OUTSIDE RECORDS SUMMARY | 2019-03-12 17:15 | XMS REPORT | Continuity of Care Document ---
:1965 External Reference #:[id number] Author Name Marylu Sofia Care Team Providers Name Role Phone Israel Gifford D.O. Primary Care Physician Unavailable Payers Date Identification Numbers Payment Provider Subscriber Policy Number: [id number] [facility] ([facility]) Shy Ricardo PayID: [id number] [address] [place] [address] Policy Number: [id number] Medicaid Shy Ricardo Group Name: 1 1 [address] PayID: [id number] [place] [address] Family History Date Family Member(s) Observation Comments [...] Ipratropium 1 unit every 6 hours Unknown [place]/Albuterol as needed Sulfate 0.5-2.5(3)mg/3ML Solution Cartia XT [...] three Unknown 300mg times a day Capsules [place] 1 by mouth every 6 Unknown 7.5-325mg [...] kg/m2 Procedures Date Code Description Status 09/20/2018 16866 Holter Monitor Review (24 hr)dr review & interp only Completed 09/14/2018 75609 ECG Monitor/Recording W/Visual Superimposition Scanning Completed 08/30/2018 26140 EKG, Interpretation Only Completed 07/30/2018 18918 ECHO Transthorasic Realtime 2D W Doppler & [...] right shoulder, initial encounter Plan of Treatment 08/30/2018 - Rachid Gonsalez M.D.I48.0 Paroxysmal atrial fibrillationFollow up :1 uufvhN39 Essential (primary) hypertension
--- OUTSIDE RECORDS SUMMARY | 2019-03-12 17:15 | XMS REPORT | Continuity of Care Document ---
:1965 External Reference #:[id number] Author Name Alyssa Lemus MD, [facility] (transmitted by agent of provider Marylu Sofia) Address [address] [address] Care Team Providers Name Role Phone Israel Gifford D.O. - Internal Care Team Information Communication Center Coordinator [phone] Medicine Problems Description No Information Available Social [...] Ipratropium 1 unit every 6 hours Unknown [place]/Albuterol as needed Sulfate 0.5-2.5(3)mg/3ML Solution Anoro Ellipta [...] Available Procedures Date Code Description Status 09/20/2018 56244 Holter Monitor Review (24 hr)dr review & interp only Completed 09/14/2018 13018 ECG Monitor/Recording W/Visual Superimposition Scanning Completed 08/30/2018 49731 EKG, Interpretation Only Completed Medical Devices Description No Information Available [...] I10 Essential (primary) hypertension Rachid Gonsalez M.D. Plan of Treatment Future Appointment(s):02/05/2019 1:45 pm - Rachid [facility] M.D. at [facility] [place]/2018 - Rachid Gonsalez M.D.I48.0 Paroxysmal atrial fibrillationFollow up:1 ibedqF54 Essential (primary) hypertension Functional Status Description No Information Available Mental Status Description No Information Available Referrals Description No Information Available
--- OUTSIDE RECORDS SUMMARY | 2019-03-12 17:15 | XMS REPORT | Continuity of Care Document ---
:1965 External Reference #:[id number] Author Name Marylu Sofia Care Team Providers Name Role Phone Israel Gifford D.O. Primary Care Physician Unavailable Payers Date Identification Numbers Payment Provider Subscriber Policy Number: [id number] [facility] ([facility]) Shy Ricardo PayID: [id number] [address] [place] [address] Policy Number: [id number] Medicaid Shy Ricardo Group Name: 1 1 [address] PayID: [id number] [place] [address] Family History Date Family Member(s) Observation Comments [...] Ipratropium 1 unit every 6 hours Unknown [place]/Albuterol as needed Sulfate 0.5-2.5(3)mg/3ML Solution Cartia XT [...] three Unknown 300mg times a day Capsules [place] 1 by mouth every 6 Unknown 7.5-325mg [...] kg/m2 Procedures Date Code Description Status 09/20/2018 85889 Holter Monitor Review (24 hr)dr review & interp only Completed 09/14/2018 11955 ECG Monitor/Recording W/Visual Superimposition Scanning Completed 08/30/2018 40485 EKG, Interpretation Only Completed 07/30/2018 42286 ECHO Transthorasic Realtime 2D W Doppler & [...] Gonsalez M.D.I48.0 Paroxysmal atrial fibrillationFollow up :1 ddzitH24 Essential (primary) hypertension
--- OUTSIDE RECORDS SUMMARY | 2019-03-12 17:15 | XMS REPORT | Continuity of Care Document ---
:1965 External Reference #:[id number] Author Name Marylu Sofia Care Team Providers Name Role Phone Israel Gifford D.O. Primary Care Physician Unavailable Payers Date Identification Numbers Payment Provider Subscriber Policy Number: [id number] [facility] ([facility]) Shy Ricardo PayID: [id number] [address] [place] [address] Policy Number: [id number] Medicaid Shy Ricardo Group Name: 1 1 [address] PayID: [id number] [place] [address] Family History Date Family Member(s) Observation Comments [...] Ipratropium 1 unit every 6 hours Unknown [place]/Albuterol as needed Sulfate 0.5-2.5(3)mg/3ML Solution Cartia XT [...] three Unknown 300mg times a day Capsules [place] 1 by mouth every 6 Unknown 7.5-325mg [...] kg/m2 Procedures Date Code Description Status 09/20/2018 98237 Holter Monitor Review (24 hr)dr review & interp only Completed 09/14/2018 11939 ECG Monitor/Recording W/Visual Superimposition Scanning Completed 08/30/2018 61262 EKG, Interpretation Only Completed 07/30/2018 11382 ECHO Transthorasic Realtime 2D W Doppler & [...] Gonsalez M.D.I48.0 Paroxysmal atrial fibrillationFollow up :1 irmwpO49 Essential (primary) hypertension
--- OUTSIDE RECORDS SUMMARY | 2019-03-12 17:15 | XMS REPORT | Continuity of Care Document ---
:1965 External Reference #:[id number] Author Name Marylu Sofia Care Team Providers Name Role Phone Israel Gifford D.O. Primary Care Physician Unavailable Payers Date Identification Numbers Payment Provider Subscriber Policy Number: [id number] [facility] ([facility]) Shy Ricardo PayID: [id number] [address] [place] [address] Policy Number: [id number] Medicaid Shy Ricardo Group Name: 1 1 [address] PayID: [id number] [place] [address] Family History Date Family Member(s) Observation Comments [...] Ipratropium 1 unit every 6 hours Unknown [place]/Albuterol as needed Sulfate 0.5-2.5(3)mg/3ML Solution Cartia XT [...] three Unknown 300mg times a day Capsules [place] 1 by mouth every 6 Unknown 7.5-325mg [...] kg/m2 Procedures Date Code Description Status 09/20/2018 22853 Holter Monitor Review (24 hr)dr review & interp only Completed 09/14/2018 25171 ECG Monitor/Recording W/Visual Superimposition Scanning Completed 08/30/2018 66254 EKG, Interpretation Only Completed 07/30/2018 62282 ECHO Transthorasic Realtime 2D W Doppler & [...] 1:45 pm - Rachid Gonsalez M.D. at [place] [facility] AT [facility] [place]/30/2018 - Rachid Gonsalez M.D.I48.0 Paroxysmal atrial fibrillationFollow up:1 memetU61 Essential (primary) hypertension
[2019-03-12 17:33] LABS: TSH (Thyroid Stimulating Horm) 3.17 mcIU/mL (0.34-5.60)
--- NOTE | 2019-03-12 17:33 | ED ---
Shortness of Breath - HPI Summary HPI Summary: This patient is a 53 year old F arriving via ambulance with a chief complaint of SOB and chest pain since 03/12/19. Patient states that she has been experiencing SOB and chest pain on 03/12/19 and states symptoms have since worsened. Patient states that her psychiatric rn is Dr. Gonsalez. The patient rates the pain 4/10 in severity characterized as tightness. Symptoms aggravated by nothing. Symptoms alleviated by nothing. Patient reports sob and chest pain. Patient denies nausea and diarrhea. Medications reviewed. Allergies noted. Allergies Allergy/AdvReac Type Severity Reaction Status Date / Time Penicillins Allergy Unknown Hives Verified 01/20/19 20:55 Home Medications Medication Instructions Recorded Confirmed Type Amiodarone TAB* [Cordarone TAB*] 200 mg PO DAILY 03/12/19 03/12/19 History Amitriptyline TAB* [Elavil TAB*] 25 mg PO DAILY 03/12/19 03/12/19 History Apixaban* [Eliquis*] 2.5 mg PO BID 03/12/19 03/12/19 History Docusate CAP* [Colace Cap*] 100 mg PO DAILY 03/12/19 03/12/19 History Ferrous Sulfate TAB* 325 mg PO DAILY 03/12/19 03/12/19 History Furosemide TAB* [Lasix TAB*] 20 mg PO DAILY 03/12/19 03/12/19 History Gabapentin CAP(*) [Neurontin 300 300 mg PO TID 03/12/19 03/12/19 History CAP(*)] Hydrocodone/Acetamin 10/325(NF 1 tab PO Q6H MDD 4 tabs 03/12/19 03/12/19 History [Eucha 10/325 (NF)] Ipratropium 0.5MG/2.5ML NEB* 0.5 mg INH Q6H PRN 03/12/19 03/12/19 History [Atrovent 0.5 MG NEB.ALENA*] Mometasone NASAL (NF) [Nasonex 1 spray BOTH NARES DAILY 03/12/19 03/12/19 History (NF)] Montelukast Sodium TAB* [Singulair 10 mg PO DAILY 03/12/19 03/12/19 History TAB*] Pantoprazole TAB * [Protonix TAB*] 40 mg PO DAILY 03/12/19 03/12/19 History Spironolactone TAB* [Aldactone 25 mg PO DAILY 03/12/19 03/12/19 History TAB*] Tiotropium Brom/Olodaterol 2 puff INH DAILY 03/12/19 03/12/19 History [Stiolto Respimat Inh Dennis (60 puff)] buPROPion TAB* [Wellbutrin TAB*] 100 mg PO BID 03/12/19 03/12/19 History dilTIAZem HCl [Dilt-Xr] 180 mg PO DAILY 03/12/19 03/12/19 History - History of Current Complaint Chief Complaint: EDDysrhythmPalp Time Seen by Provider: 03/12/19 15:50 Hx Obtained From: Patient Onset/Duration: Sudden Onset, Lasting Hours - 1800 Dyspnea At: Rest Aggravating Factors: Nothing Alleviating Factors: Nothing - Allergy/Home Medications Allergies/Adverse Reactions: Allergies Allergy/AdvReac Type Severity Reaction Status Date / Time Penicillins Allergy Unknown Hives Verified 01/20/19 20:55 Home Medications: Home Medications Amiodarone TAB* [Cordarone TAB*] 200 mg PO DAILY 03/12/19 [History Confirmed ] Amitriptyline TAB* [Elavil TAB*] 25 mg PO DAILY 03/12/19 [History Confirmed ] Apixaban* [Eliquis*] 2.5 mg PO BID 03/12/19 [History Confirmed 03/12/19] Docusate CAP* [Colace Cap*] 100 mg PO DAILY 03/12/19 [History Confirmed 03/12/19 ] Ferrous Sulfate TAB* 325 mg PO DAILY 03/12/19 [History Confirmed 03/12/19] Furosemide TAB* [Lasix TAB*] 20 mg PO DAILY 03/12/19 [History Confirmed 03/12/19 ] Gabapentin CAP(*) [Neurontin 300 CAP(*)] 300 mg PO TID 03/12/19 [History Confirmed 03/12/19] Hydrocodone/Acetamin 10/325(NF [Eucha 10/325 (NF)] 1 tab PO Q6H MDD 4 tabs 03/12 [History Confirmed 03/12/19] Ipratropium 0.5MG/2.5ML NEB* [Atrovent 0.5 MG NEB.ALENA*] 0.5 mg INH Q6H PRN 03/12 [History Confirmed 03/12/19] Mometasone NASAL (NF) [Nasonex (NF)] 1 spray BOTH NARES DAILY 03/12/19 [History Confirmed 03/12/19] Montelukast Sodium TAB* [Singulair TAB*] 10 mg PO DAILY 03/12/19 [History Confirmed 03/12/19] Pantoprazole TAB * [Protonix TAB*] 40 mg PO DAILY 03/12/19 [History Confirmed ] Spironolactone TAB* [Aldactone TAB*] 25 mg PO DAILY 03/12/19 [History Confirmed 03/12/19] Tiotropium Brom/Olodaterol [Stiolto Respimat Inh Dennis (60 puff)] 2 puff INH DAILY 03/12/19 [History Confirmed 03/12/19] buPROPion TAB* [Wellbutrin TAB*] 100 mg PO BID 03/12/19 [History Confirmed 03/12] dilTIAZem HCl [Dilt-Xr] 180 mg PO DAILY 03/12/19 [History Confirmed 03/12/19] PMH/Surg Hx/FS Hx/Imm Hx Endocrine/Hematology History: Denies: Hx Blood Transfusions, Hx Diabetes Cardiovascular History: Reports: Hx Congestive Heart Failure - pt states no, but is on lasix and spironalactone, Other Cardiovascular Problems/Disorders - poorly controlled AFib Denies: Hx Hypertension, Hx Peripheral Vascular Disease Respiratory History: Reports: Hx Chronic Obstructive Pulmonary Disease (COPD), Hx Pneumonia - several boughts, Hx Seasonal Allergies, Hx Sleep Apnea - CPAP @ night GI History: Reports: Other GI Disorders - gastric bypass Musculoskeletal History: Reports: Hx Arthritis - neck/back, Hx Fibromyalgia Sensory History: Reports: Hx Hearing Problem - L ear worsening hearing Denies: Hx Contacts or Glasses, Hx Hearing Aid Opthamlomology History: Denies: Hx Contacts or Glasses Neurological History: Reports: Hx Headaches - occasional, more frequent than usual lately. Denies: Hx Seizures, Hx Transient Ischemic Attacks (TIA) Psychiatric History: Reports: Hx Anxiety, Hx Depression - Surgical History Surgery Procedure, Year, and Place: gastric bypass 2006, hysterectomy Infectious Disease History: No Infectious Disease History: Reports: Hx Hepatitis - HEP B Denies: Traveled Outside the [place] in Last 30 Days - Family History Known Family History: Negative: Seizure Disorder - Social History Alcohol Use: Occasionally Alcohol Amount: 3 glasses per week Hx Substance Use: No Substance Use Type: Reports: None Hx Tobacco Use: Yes Smoking Status (MU): Heavy Every Day Tobacco Smoker Type: Cigarettes Review of Systems Positive: Chest Pain Positive: Shortness Of Breath Negative: Vomiting, Nausea All Other Systems Reviewed And Are Negative: Yes Physical Exam - Summary Physical Exam Summary: Constitutional: Well-developed, Well-nourished, Alert. (-) Distressed Skin: Warm, Dry HENT: Normocephalic; Atraumatic Eyes: Conjunctiva normal Neck: Musculoskeletal ROM normal neck. (-) JVD, (-) Stridor, (-) Tracheal deviation Cardio: Tachycardic, Irregular Rhythm, irregular rate, Heart sounds normal; Intact distal pulses; The pedal pulses are 2+ and symmetric. Radial pulses are 2 + and symmetric. (-) Murmur Pulmonary/Chest wall: Effort normal. (-) Respiratory distress, (-) Wheezes, (-) Rales Abd: Soft, (-) tenderness, (-) Distension, (-) Guarding, (-) Rebound Musculoskeletal: (-) Edema Lymph: (-) Cervical adenopathy Neuro: Alert, Oriented x3 Psych: Mood and affect Normal Triage Information Reviewed: Yes Vital Signs On Initial Exam: Initial Vitals Temp Pulse Resp BP Pulse Ox 98.2 F 60 16 95/77 95 03/12/19 15:47 03/12/19 15:47 03/12/19 15:47 03/12/19 15:47 03/12/19 15:47 Vital Signs Reviewed: Yes Diagnostics - Vital Signs Vital Signs Temp Pulse Resp BP Pulse Ox 03/12/19 17:20 71 22 103/70 96 03/12/19 17:00 69 20 94 03/12/19 16:49 72 27 100/72 96 03/12/19 16:19 75 24 104/79 96 03/12/19 16:00 105 95 03/12/19 15:50 140 95/77 94 03/12/19 15:49 177 03/12/19 15:47 98.2 F 60 16 95/77 95 - Laboratory Lab Results: Lab Results 09/24/19 09/24/19 Range/Units 16:03 16:03 WBC 10.0 (3.5-10.8) 10^3/uL RBC 4.71 (3.70-4.87) 10^6 /uL Hgb 16.0 (12.0-16.0) g/dL Hct 47 (35-47) % MCV 100 H (80-97) fL MCH 34 H (27-31) pg MCHC 34 (31-36) g/dL RDW 14 (10-15) % Plt Count 151 (150-450) 10^3/uL MPV 8.1 (7.4-10.4) fL Neut % (Auto) 75.7 % Lymph % (Auto) 16.0 % [place] % (Auto) 7.4 % Eos % (Auto) 0.5 % Baso % (Auto) 0.4 % Absolute Neuts (auto) 7.6 (1.5-7.7) 10^3/ul Absolute Lymphs (auto) 1.6 (1.0-4.8) 10^3/ul Absolute Monos (auto) 0.7 (0-0.8) 10^3/ul Absolute Eos (auto) 0.0 (0-0.6) 10^3/ul Absolute Basos (auto) 0.0 (0-0.2) 10^3/ul Absolute Nucleated RBC 0.0 10^3/ul Nucleated RBC % 0.1 Sodium 137 (135-145) mmol/L Potassium 3.8 (3.5-5.0) mmol/L Chloride 106 (101-111) mmol/L Carbon Dioxide 26 (22-32) mmol/L Anion Gap 5 (2-11) mmol/L BUN 5 L (6-24) mg/dL Creatinine 0.67 (0.51-0.95) mg/dL Est GFR ( Amer) 111.8 (>60) Est GFR (Non-Af Amer) 92.4 (>60) BUN/Creatinine Ratio 7.5 L (8-20) Glucose 101 H (70-100) mg/dL Calcium 9.0 (8.6-10.3) mg/dL Magnesium 1.9 (1.9-2.7) mg/dL Total Bilirubin 0.50 (0.2-1.0) mg/dL AST 11 L (13-39) U/L ALT 12 (7-52) U/L Alkaline Phosphatase 73 (34-104) U/L Troponin I 0.01 (<0.04) ng/mL Total Protein 6.7 (6.4-8.9) g/dL Albumin 3.9 (3.2-5.2) g/dL Globulin 2.8 (2-4) g/dL Albumin/Globulin Ratio 1.4 (1-3) TSH Pending Result Diagrams: 03/12/19 16:03 03/12/19 16:03 Lab Statement: Any lab studies that have been ordered have been reviewed, and results considered in the medical decision making process. - EKG 1600 Cardiac Rate: NL EKG Rhythm: Sinus Rhythm - 75 EKG Comparison: Other - no prior Summary of EKG Findings: EKG reveals a sinus rhythm at 75 bpm with multiple atrial pre mature complexes. No prior comparison. Re-Evaluation - Re-Evaluation First Eval Re-Evaluation Time: 16:05 Change: Improved Comment: Patient's rhythm spontaneously changed to a normal rhythm as iv insertion was performed. Second Eval Re-Evaluation Time: 18:05 Change: Improved Comment: Patient is feeling better and has a sinus rhythm. Course/Dx - Course Course Of Treatment: She is here with shortness of breath secondary to atrial fibrillation. Patient was in atrial [place] with RVR on monitor upon arrival. Patient spontaneously converted to normal sinus rhythm during IV insertion. Patient had blood performed which was grossly unremarkable. Patient did not have emergent pathology requiring admission. - Diagnoses Provider Diagnoses: Atrial fibrillation with RVR Discharge ED - Sign-Out/Discharge Documenting (check all that apply): Patient Departure - discharge Patient Received Moderate/Deep Sedation with Procedure: No - Discharge Plan Condition: Stable Disposition: HOME Patient Education Materials: A-fib (Atrial Fibrillation) (ED) Referrals: Rachid Gonsalez MD [Medical Doctor] - 3 Days Additional Instructions: PLEASE RETURN TO EMERGENCY DEPARTMENT FOR ANY NEW OR WORSENING SYMPTOMS ESPECIALLY FOR TROUBLE BREATHING OR HEART PALPITATIONS. FOLLOW UP WITH DR. GONSALEZ IN 1-3 DAYS - Billing Disposition and Condition Condition: STABLE Disposition: Home - Attestation Statements Document Initiated by Scribe: Yes Documenting Scribe: Mercedes Baumann Provider For Whom Scribe is Documenting (Include Credential): Dr. Dhruv Decker Scribe Attestation: I, Mercedes Baumann , scribed for Dr. Dhruv Decker on 03/12/19 at 2103. Scribe Documentation Reviewed: Yes Provider Attestation: The documentation as recorded by the scribe, Mercedes Baumann accurately reflects the service I personally performed and the decisions made by me, Dr. Dhruv Decker Status of Scribe Document: Viewed
[2019-03-12 18:48] VITALS: BP 95/69
== END 2019-03-12 17:45 | disposition home or self-care (01) ==
LOC: ED 15:45
DX: I48.2 Chronic atrial fibrillation (principal); I50.9 Heart failure, unspecified; J44.9 Chronic obstructive pulmonary disease, unspecified; F41.9 Anxiety disorder, unspecified; F32.9 Major depressive disorder, single episode, unspecified; F17.210 Nicotine dependence, cigarettes, uncomplicated; Z79.01 Long term (current) use of anticoagulants; Z79.899 Other long term (current) drug therapy; Z88.0 Allergy status to penicillin
CPT/HCPCS: 36415; 71045; 80053; 83735; 84443; 84484; 85025; 93005; 96374; 99282

== ENCOUNTER → 2019-03-18 08:12 | Day surgery (SDC) | payer MEDICARE, MEDICAID ==
[~2019-03-18 08:12] MED LIST: Diazepam TAB(*) 5 MG ONE; Heparin 2 UNITS/ML IVPREMIX* 3,000 ML IV ONE; Heparin(*) 1000 UNIT/ML 10 ML VIAL CATH LAB IV ONE; Iohexol 350 (CONTRAST) 200 ML MDV IV ONE; Lidocaine 1% INJ* 10 MG/ML 30 ML SDV ONE; Midazolam* 1 MG/ML 5 ML VIAL (5 MG) ONE; NS 0.9% 1000 ML** 1,000 ML IV SCH; VERAPAMIL 2.5 MG/ML 2 ML VIAL ** 5 mg/2 ml ONE; diPHENhydraMINE PO* 25 MG ONE; fentaNYL* 50 MCG/ML 2 ML VIAL (100 MCG VIAL) ONE; nitroGLYCERIN DRIP* 25,000 MCG/250 ML BTL ONE
--- NOTE | 2019-03-18 12:28 | CATH ---
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 - Left heart catheterization with angiography. - Right heart catheterization. Summary: Normal coronary arteries Normal left ventricle function 1+ Mitral Regurgitation Severe Mitral stenosis with mean gradient 12 mmHg Valve area 1 cm2 Mild Pulmonary hypertension. Recommendations: Evaluation for Mitral valvuloplasty. History: Mitral stenosis. Risk factors: Current tobacco use. Medications: The patient received no antianginal therapy in the last two weeks. Labs, prior tests, procedures, and surgery: Blood tests: Troponin I (pre-procedure) of 0.01 ng/ml. International normalized ratio (INR) of 1.18. Partial thromboplastin time (PTT) of 36.8 sec. Serum potassium (K) of 3.8 mEq/l. Serum sodium (Na) of 137 mEq/l. Serum creatinine (current admission) of 0.67 mg/dl. Blood urea nitrogen of 5 mg/dl. Glucose of 101 mg/dl. Platelet count of 151 th/ul. White blood cell count (WBC) of 0.01 th/ul. Red blood cell count (RBC) of 4710 th/ul. Hematocrit of 47 %. Hemoglobin (pre-procedure) of 16 g/dl. Study data: Study status: Cardiac cath: elective. Location: Catheterization laboratory. Consent: The risks, benefits, and alternatives to the procedure were explained to the patient and/or their healthcare physician representative and written informed consent was obtained. All available pre-procedure labs were reviewed. Height: 160 cm. 63 in. Weight: 102.3 kg. 225.1 lb. Body surface area: 2.19 m^2. Body mass index: 40 kg/m^2. Procedure: 1. Initial setup. The patient was brought to the laboratory. Surface ECG leads, blood pressure measurements, and pulse oximetric signals were monitored. A baseline seven lead ECG was recorded. A time out was observed per protocol. 2. Skin preparation. The planned puncture sites were prepped and draped in the usual sterile manner. 3. Local anesthesia. 1% lidocaine was administered. 4. Sedation. was administered. 5. Access. A 5F Karissa Sheath 11cm sheath was advanced into the vessel. 6. Supplemental oxygen. Oxygen, 2 L/min was administered throughout the procedure. 7. Right heart catheterization was performed. A 5 Fr Thermodilution catheter was advanced to the right ventricle under fluoroscopic guidance. 8. Right radial artery access. A 6F Glidesheath Slender sheath was advanced into the vessel. 9. Selective left coronary angiography. A 5F TIG 4.0 catheter was advanced into the left coronary vessel ostium under fluoroscopic guidance. Contrast was injected. Images were obtained in multiple projections. 10. Left heart catheterization with angiography. A 5F PIG Short Radial catheter was advanced across the aortic valve to the left ventricle under fluoroscopic guidance. 35 ml of contrast was injected at 10 ml/s. 11. Right radial artery hemostasis. Vessel closure was achieved with a Regular Vasc Band device. 12. Right heart catheterization was performed. A catheter was advanced to the right ventricle under fluoroscopic guidance. Study completion: Minimal estimated blood loss. All catheters inserted during the procedure were removed. There were no apparent complications. Administered medications: (Radial) Nitroglycerin, 300mcg, intra-arterially. (Radial) Verapamil, 3mg, intra-arterially. (Radial) Heparin, 3,000units, intra-arterially. VERSED (Midazolam), for a total dose of 2mg, IV. Fentanyl, for a total dose of 50mcg, IV. NaCl 0.9% , infusion , at a rate of 100 ml/hr. NaCl 0.9% , 200 ml , bolus. Contrast: Omnipaque 350 100 ml (total dose). Omnipaque 350 300 ml (wasted). Radiation: Fluoroscopy dose: 125 cGy. Discharge: The patient tolerated the procedure well and was discharged from the lab in stable condition. Findings Coronary arteries: Left main: Normal, 0% stenosis. LAD: Normal, 0% stenosis. Left circumflex: Normal, 0% stenosis. Right coronary: Normal, 0% stenosis. Hemodynamics: + + + + |Stage description |Condition 1 - Geena|Condition 1 - Thermo | + + + + |Venous saturation | |RA: 64%, PA: 65% | + + + + |Arterial saturation | |94% | + + + + |O2 uptake, hemoglobin | |Hgb: 16 g/dl | + + + + |Systemic cardiac |1.98 L/(min-m^2) |7.5 L/min, 3.68 | |output (Qs) | |L/(min-m^2) | + + + + |HR, R-R, stroke volume| |61 bpm, 123 ml | + + + + |RA pressure a/v (m) | |24/ (19) | + + + + |RV pressure s/d, ed | |52/17, 22 | + + + + |PA pressure s/d (m) | |47/28 (38) | + + + + |PA wedge a/v (m) | |37/40 (32) | + + + + |LV pressure s/d, ed | |109/15, 25, dP/af=5844 | | | |mm Hg/s | + + + + |Arterial pressure s/d | |114/72 (92) | |(m) | | | + + + + Mitral valve: + + + + |Stage description |Condition 1 Geena|Condition 1 Thermo| + + + + |Mean gradient |12.6 mm Hg |12.6 mm Hg | + + + + |Peak-peak gradient |4 mm Hg |4 mm Hg | + + + + |Cardiac output | |7.5 L/min | + + + + |R-R interval | |984 ms | + + + + |Diastolic filling time|532 ms |532 ms | + + + + |Valve area |1.11 cm^2 |2.05 cm^2 | + + + + |Valve area index |0.54 cm^2/m^2 |1.01 cm^2/m^2 | + + + + Tricuspid valve: + + + + |Stage description |Condition 1 Geena|Condition 1 Thermo| + + + + |Mean gradient |0.6 mm Hg |0.6 mm Hg | + + + + |Peak-peak gradient |0 mm Hg |0 mm Hg | + + + + |Cardiac output | |7.5 L/min | + + + + |R-R interval | |984 ms | + + + + |Diastolic filling time|390 ms |390 ms | + + + + |Valve area |5.04 cm^2 |9.36 cm^2 | + + + + |Valve area index |2.48 cm^2/m^2 |4.61 cm^2/m^2 | + + + + Prepared and electronically signed by Rachid Gonsalez MD 03/18/2019 12:28"
[2019-03-18 12:30] VITALS: BP 95/61
[2019-03-18 15:13] LABS: POC SO2 64 %
[2019-03-18 15:13] LABS: POC SO2 65 %
[2019-03-18 15:14] LABS: POC SO2 94 %
== END | disposition home or self-care (01) ==
LOC: CHICATH 08:12
PROVIDERS: ATTEND Specialist
DX: I34.2 Nonrheumatic mitral (valve) stenosis (principal); I48.0 Paroxysmal atrial fibrillation; I10 Essential (primary) hypertension; R94.39 Abnormal result of other cardiovascular function study; Z79.01 Long term (current) use of anticoagulants; Z88.0 Allergy status to penicillin; F41.8 Other specified anxiety disorders; Z72.0 Tobacco use; R06.02 Shortness of breath
CPT/HCPCS: 82803; 93460; 99156; 99157; A9270-GY; C1887; J1644; J2250; J3010

== ENCOUNTER 2019-04-14 19:48 | Emergency (ER) | payer MEDICARE, MEDICAID ==
[2019-04-14] MEDS ORDERED: NS 0.9% 1000 ML** 1,000 ML IV ONE (20:16)
[2019-04-14 20:27] LABS: ABS Monocytes 0.4 10^3/ul (0-0.8); ABS Neutrophils 4.6 10^3/ul (1.5-7.7); Eosinophil % 0.1 %; Hematocrit 45 % (35-47); Hemoglobin 15.6 g/dL (12.0-16.0); Lymphocyte % 16.1 %; Mean Corpuscular HGB Conc 35 g/dL (31-36); Mean Corpuscular Hemoglobin 34 pg (27-31); Mean Corpuscular Volume 99 fL (80-97); Platelet Count 139 10^3/uL (150-450); Red Blood Count 4.57 10^6 /uL (3.70-4.87); Red Cell Distribution Width 15 % (10-15); White Blood Count 6.1 10^3/uL (3.5-10.8)
[2019-04-14 20:32] LABS: INR 1.05 (0.82-1.09)
[2019-04-14 20:44] LABS: ALT 16 U/L (7-52); AST 17 U/L (13-39); Albumin 3.7 g/dL (3.2-5.2); Albumin/Globulin Ratio 1.3 (1-3); Alkaline Phosphatase 67 U/L (34-104); Anion Gap 7 mmol/L (2-11); BUN/Creatinine Ratio 15.3 (8-20); Blood Urea Nitrogen 9 mg/dL (6-24); CO2 Carbon Dioxide 24 mmol/L (22-32); Calcium 8.8 mg/dL (8.6-10.3); Chloride 109 mmol/L (101-111); EGFR African American 129.5 (>60); Globulin 2.8 g/dL (2-4); Glucose 86 mg/dL (70-100); Magnesium 1.9 mg/dL (1.9-2.7); Potassium 3.8 mmol/L (3.5-5.0); Sodium 140 mmol/L (135-145); Total Protein 6.5 g/dL (6.4-8.9)
--- OUTSIDE RECORDS SUMMARY | 2019-04-14 21:02 | XMS REPORT | Continuity of Care Document ---
:1965 External Reference #:[id number] Author Name Ron Fraser Care Team Providers Name Role Phone Israel Gifford D.O. - Internal Care Team Information Insulation Inspector [phone] Medicine Problems Description No Information Available Social [...] Medications SIG Qnty Indications Ordering Date Provider Driscoll 1 by mouth every 6 Unknown 7.5-325mg [...] Ipratropium 1 unit every 6 hours Unknown [place]/Albuterol as needed Sulfate 0.5-2.5(3)mg/3ML Solution Anoro Ellipta [...] BMI (Body Mass Index) 39.9 kg/m2 Results Test Date Facility Test Result H/L Range Note So2 03/18/2019 [facility] Poc So2 94 % [address] [place] [address] [phone] Poc Specimen Type Venous So2 03/18/2019 [facility] Poc So2 65 % [address] [place] [address] [phone] Poc Specimen Type Venous So2 03/18/2019 [facility] Poc So2 64 % [address] [place] [address] [phone] Poc Specimen Type Venous 1 Arterial Reference Range: 95-98% Venous Reference Range: 70-80% 2 Arterial Reference Range: 95-98% Venous Reference Range: 70-80% 3 Arterial Reference Range: 95-98% Venous Reference Range: 70-80% Procedures Date Code Description Status 03/18/2019 15399 RT & lt Cath W/Injx HRT Art&L Ventr Img S&I Completed 02/19/2019 96421 Moderate Sedation Services; Same Phys Intl 15 Mins; PT >= Completed 5 Years 02/19/2019 87310 Color Flow Doppler/Interp & Reprt Completed 02/19/2019 88012 Pulse Wave/Continuous-Interp.RPT Completed 02/19/2019 82811 Echocardiography, Transesophageal, Real Time W/Image 2D Completed W/W/O M-M 01/21/2019 61492 ECHO Transthorasic Realtime 2D W Doppler & Color Flow Hosp Completed Medical Devices Description No Information Available Encounters Type Date Location Provider Dx Diagnosis Office Visit 03/07/2019 [place] Rachid D. I48.0 Paroxysmal atrial 9:45a Cardiology Gumaro Gonsalez fibrillation I34.2 Nonrheumatic mitral (valve) stenosis I10 Essential (primary) hypertension Office Visit 02/07/2019 10:30a Tj Montez I48.0 Paroxysmal atrial Cardiology Gumaro Gonsalez fibrillation I34.2 Nonrheumatic mitral (valve) stenosis I10 Essential (primary) hypertension Office Visit 01/25/2019 [facility] Ashley Quinteros, I48.0 Paroxysmal atrial 12:03p steve Green M.D. fibrillation Hospitalists I34.2 Nonrheumatic mitral (valve) stenosis Office Visit 01/24/2019 [facility] Ashley Quinteros I48.91 Unspecified 12:02p steve Green M.D. 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 atrial Hospitalists fibrillation J81.1 Chronic pulmonary edema R94.31 Abnormal electrocardiogram [ECG] [EKG] Office Visit 01/21/2019 7:55a [facility] Ajay Strickland I48.0 Paroxysmal atrial Of Party Plan Demonstrator Monroe, DO fibrillation FACC E66.9 Obesity, unspecified I50.9 Heart failure, unspecified Z72.0 Tobacco use I34.2 Nonrheumatic mitral (valve) stenosis R06.02 Shortness of breath Office Visit 01/21/2019 [facility] I48.91 Unspecified 12:01p Assoc,steve Marin NP atrial Hospitalists fibrillation F17.210 Nicotine dependence, cigarettes, uncomplicated I10 Essential (primary) hypertension Office Visit 01/20/2019 [facility] I48.91 Unspecified 12:00p Assoc,steve Marin NP atrial Hospitalists fibrillation R06.02 Shortness of breath Assessments Date Code Description Provider 03/18/2019 I34.2 Nonrheumatic mitral (valve) stenosis Rachid Gonsalez M.D. 03/07/2019 I48.0 Paroxysmal atrial fibrillation Rachid Gonsalez [...] M.D. 01/23/2019 I48.0 Paroxysmal atrial fibrillation Sola Thuman, GRAIN OILSEED OR PASTURE FARM MANAGER 01/23/2019 I35.2 Nonrheumatic aortic (valve) stenosis with Sola Thuman, GRAIN OILSEED OR PASTURE FARM MANAGER insufficiency 01/23/2019 R94.31 Abnormal electrocardiogram [ECG] [EKG] Sola Thuman, GRAIN OILSEED OR PASTURE FARM MANAGER 01/23/2019 I48.91 Unspecified atrial fibrillation Ashley Quinteros M.D. 01/23/2019 I34.2 Nonrheumatic mitral (valve) stenosis Ashley Quinteros M.D. 01/23/2019 J81.1 Chronic pulmonary edema Ashley Quinteros M.D. 01/22/2019 I48.0 Paroxysmal atrial fibrillation Sola Thuman, GRAIN OILSEED OR PASTURE FARM MANAGER 01/22/2019 I50.9 Heart failure, unspecified Sola Thuman, GRAIN OILSEED OR PASTURE FARM MANAGER 01/22/2019 E66.9 Obesity, unspecified Sola Thuman, GRAIN OILSEED OR PASTURE FARM MANAGER 01/22/2019 Z72.0 Tobacco use Sola Thuman, GRAIN OILSEED OR PASTURE FARM MANAGER 01/22/2019 I35.2 Nonrheumatic aortic (valve) stenosis with Sola Thuman, GRAIN OILSEED OR PASTURE FARM MANAGER insufficiency 01/22/2019 I48.91 Unspecified atrial fibrillation Ashley Quinteros M.D. 01/22/2019 J81.1 Chronic pulmonary edema Ashley Quinteros M.D. 01/22/2019 R94.31 Abnormal electrocardiogram [ECG] [EKG] Ashley Quinteros M.D. 01/21/2019 I48.0 Paroxysmal atrial fibrillation Ajay Monroe, DO FAC 01/21/2019 E66.9 Obesity, unspecified Ajay Monroe, DO FACC 01/21/2019 I50.9 Heart failure, unspecified Ajay Monroe, DO FACC 01/21/2019 Z72.0 Tobacco use Ajay Monroe, DO FACC 01/21/2019 I34.2 Nonrheumatic mitral (valve) stenosis Ajay Monroe, DO FACC 01/21/2019 R06.02 Shortness of breath Ajay Monroe, DO FACC 01/21/2019 I48.91 Unspecified atrial fibrillation Stephanie ClimaxSTARR liriano 01/21/2019 F17.210 Nicotine dependence, cigarettes, Stephanie Toams, STARR uncomplicated 01/21/2019 I10 Essential (primary) hypertension Stephanie STARR Marin 01/20/2019 I48.91 Unspecified atrial fibrillation Stephanie Marin NP 01/20/2019 R06.02 Shortness of breath Stephanie Marin NP Plan of Treatment 03/07/2019 - Rachid Gonsalez M.D.I48.0 Paroxysmal atrial fibrillationFollow up :1 week after cathRecommendations:Stop Eliquis 2 days before [id number] Nonrheumatic mitral (valve) [id number] Essential (primary) hypertension Functional Status Description No Information Available Mental Status Description No Information Available Referrals Refer to Dr Reason for Referral Status Appt Date [place], MD Mike Sent [address] [place] [address] [phone]
--- OUTSIDE RECORDS SUMMARY | 2019-04-14 21:02 | XMS REPORT | Continuity of Care Document ---
:1965 External Reference #:[id number] Author Name Rachid Gonsalez M.D. (transmitted by agent of provider Stephanie Minaya) Address [address] [place] [address] Care Team Providers Name Role Phone Israel Gifford D.O. 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 Medicine Problems Description No Information Available Social History Type Date Description Comments Sex Unknown ETOH Use Occasionally consumes alcohol Tobacco Use Start: Unknown Patient is a current about pack and a smoker, smokes every half a day day Recreational Drug Use Denies Drug Use Smoking Status Reviewed: 03/26/19 Patient is a current about pack and a smoker, smokes every half a day day Exercise Type/Frequency Does not exercise Allergies, [...] Ipratropium 1 unit every 6 hours Unknown [place]/Albuterol as needed Sulfate 0.5-2.5(3)mg/3ML Solution Anoro Ellipta 1 inhalation daily Unknown 62.5-25mcg/Inh Aerosol Eliquis 1 tab by mouth bid Unknown 2.5mg Tablets Furosemide 1 by mouth every day Unknown 20mg Tablets Immunizations Description No Information Available Vital Signs Date Vital Result Comment 03/26/2019 12:51pm Height 63 inches 5'3" Weight 225.50 lb with shoes Heart Rate 66 /min left radial BP Systolic Sitting 110 mmHg ule reg cuff BP Diastolic Sitting 74 mmHg ule reg cuff BP Systolic Standing 110 mmHg ule reg cuff BP Diastolic Standing 74 mmHg ule reg cuff BMI (Body Mass Index) 39.9 kg/m2 Ejection Fraction RYAN 55-60% 02/19/19 03/07/2019 9:47am Height 63 inches 5'3" Weight [...] Test Result H/L Range Note So2 03/18/2019 [facility] Poc So2 94 % [address] [place] [address] [phone] Poc Specimen Type Venous So2 03/18/2019 [facility] Poc So2 65 % [address] [place] [address] [phone] Poc Specimen Type Venous So2 03/18/2019 [facility] Poc So2 64 % [address] [place] [address] [phone] Poc Specimen Type Venous 1 Arterial Reference Range: 95-98% Venous Reference Range: 70-80% 2 Arterial Reference Range: 95-98% Venous Reference Range: 70-80% 3 Arterial Reference Range: 95-98% Venous Reference Range: 70-80% Procedures Date Code Description Status 03/18/2019 88147 RT & lt Cath W/Injx HRT Art&L Ventr Img S&I Completed 02/19/2019 25400 Moderate Sedation Services; Same Phys Intl 15 Mins; PT >= Completed 5 Years 02/19/2019 38637 Color Flow Doppler/Interp & Reprt Completed 02/19/2019 31910 Pulse Wave/Continuous-Interp.RPT Completed 02/19/2019 45590 Echocardiography, Transesophageal, Real Time W/Image 2D Completed W/W/O M-M 01/21/2019 23588 ECHO Transthorasic Realtime 2D W Doppler & [...] I10 Essential (primary) hypertension Office Visit 01/25/2019 [facility] Quinteros I48.0 Paroxysmal atrial 12:03p steve Green M.D. fibrillation Hospitalists I34.2 Nonrheumatic mitral (valve) stenosis Office Visit 01/24/2019 [facility] I48.91 Unspecified 12:02p steve Green M.D. atrial Hospitalists fibrillation I34.2 Nonrheumatic mitral (valve) stenosis J81.1 Chronic pulmonary edema I10 Essential (primary) hypertension R94.31 Abnormal electrocardiogram [ECG] [EKG] Office Visit 01/23/2019 10:47a [facility] Sola Shirley, I48.0 Paroxysmal atrial BAND ATTACHER fibrillation I35.2 Nonrheumatic aortic (valve) stenosis with insufficiency R94.31 Abnormal electrocardiogram [ECG] [EKG] Office Visit 01/23/2019 [facility], I48.91 Unspecified 12:02p steve Green M.D. atrial Hospitalists fibrillation I34.2 Nonrheumatic mitral (valve) stenosis J81.1 Chronic pulmonary edema Office Visit 01/22/2019 10:40a [facility] Sola Shirley I48.0 Paroxysmal atrial BAND ATTACHER fibrillation I50.9 Heart failure, unspecified E66.9 Obesity, unspecified Z72.0 Tobacco use I35.2 Nonrheumatic aortic (valve) stenosis with insufficiency Office Visit 01/22/2019 [facility] I48.91 Unspecified 12:02p steve Green M.D. atrial Hospitalists fibrillation J81.1 Chronic pulmonary edema R94.31 Abnormal electrocardiogram [ECG] [EKG] Office Visit 01/21/2019 7:55a [facility] Ajay Strickland I48.0 Paroxysmal atrial Of Octave Board Assembler Monroe, DO fibrillation FACC E66.9 Obesity, unspecified I50.9 Heart failure, unspecified Z72.0 Tobacco use I34.2 Nonrheumatic mitral (valve) stenosis R06.02 Shortness of breath Office Visit 01/21/2019 [facility] I48.91 Unspecified 12:01p Assoc,steve Marni NP atrial Hospitalists fibrillation F17.210 Nicotine dependence, cigarettes, uncomplicated I10 Essential (primary) hypertension Office Visit 01/20/2019 [facility] I48.91 Unspecified 12:00p Assoc,steve Marin NP atrial Hospitalists fibrillation R06.02 Shortness of breath Assessments Date Code Description Provider 03/26/2019 I34.2 Nonrheumatic mitral (valve) stenosis Rachid Gonsalez M.D. 03/26/2019 I48.0 Paroxysmal atrial fibrillation Rachid Gonsalez M.D. 03/18/2019 I34.2 Nonrheumatic mitral (valve) stenosis Rachid [...] 01/23/2019 I48.0 Paroxysmal atrial fibrillation Sola Thuman, BAND ATTACHER 01/23/2019 I35.2 Nonrheumatic aortic (valve) stenosis with Sola Thuman, BAND ATTACHER insufficiency 01/23/2019 R94.31 Abnormal electrocardiogram [ECG] [EKG] Sola Thuman, BAND ATTACHER 01/23/2019 I48.91 Unspecified atrial fibrillation Ashley Quinteros M.D. 01/23/2019 I34.2 Nonrheumatic mitral (valve) stenosis Ashley Quinteros M.D. 01/23/2019 J81.1 Chronic pulmonary edema Ashley Quinteros M.D. 01/22/2019 I48.0 Paroxysmal atrial fibrillation Sola Thuman, BAND ATTACHER 01/22/2019 I50.9 Heart failure, unspecified Sola Thuman, BAND ATTACHER 01/22/2019 E66.9 Obesity, unspecified Sola Thuman, BAND ATTACHER 01/22/2019 Z72.0 Tobacco use Sola Thuman, BAND ATTACHER 01/22/2019 I35.2 Nonrheumatic aortic (valve) stenosis with Sola Thuman, BAND ATTACHER insufficiency 01/22/2019 I48.91 Unspecified atrial fibrillation Ashley Quinteros M.D. 01/22/2019 J81.1 Chronic pulmonary edema Ashley Quinteros M.D. 01/22/2019 R94.31 Abnormal electrocardiogram [ECG] [EKG] Ashley Quinteros M.D. 01/21/2019 I48.0 Paroxysmal atrial fibrillation Ajay Monroe DO [facility] 01/21/2019 E66.9 Obesity, unspecified Ajay Monroe, DO FAC 01/21/2019 I50.9 Heart failure, unspecified Ajay Monroe, DO [facility] 01/21/2019 Z72.0 Tobacco use Ajay Monroe, DO [facility] 01/21/2019 I34.2 Nonrheumatic mitral (valve) stenosis Ajay Monroe, DO [facility] 01/21/2019 R06.02 Shortness of breath Ajay Monroe, DO [facility] 01/21/2019 I48.91 Unspecified atrial fibrillation Stephanie Marin, STARR 01/21/2019 F17.210 Nicotine dependence, cigarettes, Stephanie Marin, BAND ATTACHER uncomplicated 01/21/2019 I10 Essential (primary) hypertension Stephanie Marin, STARR 01/20/2019 I48.91 Unspecified atrial fibrillation Stephanie Marin NP 01/20/2019 R06.02 Shortness of breath Stephanie Marin NP Plan of Treatment Future Appointment(s):05/10/2019 8:30 am - Rachid Gonsalez M.D. at [facility]04/02/2019 7:30 am - Cardiology Doctor Loc 39 at [facility] [place] [place]03/26/2019 - Rachid Gonsalez M.D.I34.2 Nonrheumatic mitral (valve) stenosisFollow up:6 sxafaI44.0 Paroxysmal atrial fibrillation Functional Status Description No Information Available Mental Status Description No Information Available Referrals Refer to Reason for Referral Status Appt Date [place], MD Mike Sent [address] [place] [address] [phone]
[2019-04-14 21:04] LABS: Alcohol < 10 mg/dL (<10)
--- NOTE | 2019-04-14 21:07 | ED ---
HPI Chest Pain - HPI Summary HPI Summary: Pt is a 53 y/o F presenting to the ED with a chief complaint of chest pain initially onset on the morning of 04/14/19, described as a burning pressure currently rated at 7/10 in severity. She notes associated shortness of breath, diaphoresis, chills, lightheadedness with sitting up, and nausea, as well as a chronic cough from smoking. She denies vomiting, diarrhea, or recent illness. 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 She notes she drank a good amount of alcohol last night, but that she does not usually drink that much. She has hx of AFib. - History of Current Complaint Chief Complaint: EDChestPainROMI Time Seen by Provider: 04/14/19 20:16 Hx Obtained From: Patient Onset/Duration: Started Hours Ago, Still Present Timing: Constant, Lasting Hours Initial Severity: Severe Current Severity: Severe Pain Intensity: 8 Pain Scale Used: 0-10 Numeric Chest Pain Location: Diffuse Chest Pain Radiates: No Character: Burning, Pressure/Squeezing Aggravating Factor(s): Nothing Alleviating Factor(s): Nothing Associated Signs and Symptoms: Positive: Chest Pain, Shortness of Breath, Chills , Lightheadedness - w/ sitting up, Diaphoresis, Nausea, Cough. Negative: Vomiting, Other: - diarrhea, recent illness - Additional Pertinent History Primary Care Physician: SONY - Allergy/Home Medications Allergies/Adverse Reactions: Allergies Allergy/AdvReac Type Severity Reaction Status Date / Time Penicillins Allergy Unknown Hives Verified 04/14/19 20:03 PMH/Surg Hx/FS Hx/Imm Hx Previously Healthy: Yes Endocrine/Hematology History: Denies: Hx Blood Transfusions, Hx Diabetes Cardiovascular History: Reports: Hx Atrial Fibrillation, Hx Congestive Heart Failure - pt states no, but is on lasix and spironalactone, Hx Valvular Heart Disease - severe MR, Other Cardiovascular Problems/Disorders - poorly controlled AFib Denies: Hx Angina, Hx Coronary Artery Disease, Hx Hypercholesterolemia, Hx Hypertension, Hx Myocardial Infarction, Hx Peripheral Vascular Disease Respiratory History: Reports: Hx Chronic Obstructive Pulmonary Disease (COPD), Hx Pneumonia - several boughts, Hx Seasonal Allergies, Hx Sleep Apnea - CPAP @ night GI History: Reports: Other GI Disorders - gastric bypass History: Denies: Hx Chronic Renal Failure Musculoskeletal History: Reports: Hx Arthritis - neck/back, Hx Fibromyalgia Sensory History: Reports: Hx Hearing Problem - L ear worsening hearing Denies: Hx Contacts or Glasses, Hx Hearing Aid Opthamlomology History: Denies: Hx Contacts or Glasses Neurological History: Reports: Hx Headaches - occasional, more frequent than usual lately. Denies: Hx Seizures, Hx Transient Ischemic Attacks (TIA) Psychiatric History: Reports: Hx Anxiety, Hx Depression - Surgical History Surgery Procedure, Year, and Place: gastric bypass 2006, hysterectomy, 2 C- sections Infectious Disease History: No Infectious Disease History: Reports: Hx Hepatitis - HEP B Denies: Traveled Outside the [place] in Last 30 Days - Family History Known Family History: Positive: Cardiac Disease - mother Negative: Seizure Disorder - Social History Alcohol Use: Weekly Alcohol Amount: 1 per week or less Hx Substance Use: No Substance Use Type: Reports: None Hx Tobacco Use: Yes Smoking Status (MU): Heavy Every Day Tobacco Smoker Type: Cigarettes Review of Systems - ROS Summary Review of Systems Summary: Home Medications Medication Instructions Recorded Confirmed Type Amiodarone TAB* [Cordarone Tab*] 180 mg PO DAILY 03/12/19 03/18/19 History Amitriptyline TAB* [Elavil TAB*] 25 mg PO DAILY 03/12/19 03/18/19 History Apixaban* [Eliquis*] 2.5 mg PO BID 03/12/19 03/18/19 History Docusate CAP* [Colace Cap*] 100 mg PO DAILY PRN 03/12/19 03/15/19 History Ferrous Sulfate TAB* 325 mg PO DAILY 03/12/19 03/18/19 History Furosemide TAB* [Lasix TAB*] 20 mg PO DAILY 03/12/19 03/15/19 History Gabapentin CAP(*) [Neurontin 300 300 mg PO TID 03/12/19 03/15/19 History CAP(*)] Ipratropium 0.5MG/2.5ML NEB* 0.5 mg INH Q6H PRN 03/12/19 03/15/19 History [Atrovent 0.5 MG NEB.ALENA*] Mometasone NASAL (NF) [Nasonex 1 spray BOTH NARES DAILY 03/12/19 03/18/19 History (NF)] Montelukast Sodium TAB* [Singulair 10 mg PO DAILY 03/12/19 03/18/19 History 10 MG TAB*] Pantoprazole TAB * [Protonix TAB*] 40 mg PO DAILY 03/12/19 03/15/19 History Spironolactone TAB* [Aldactone TAB 25 mg PO DAILY 03/12/19 03/18/19 History 25 MG*] Tiotropium Brom/Olodaterol 2 puff INH DAILY 03/12/19 03/18/19 History [Stiolto Respimat Inh [place] (60 puff)] buPROPion TAB* [Wellbutrin TAB*] 100 mg PO BID 03/12/19 03/18/19 History dilTIAZem HCl [Dilt-Xr] 180 mg PO DAILY 03/12/19 03/15/19 History Umeclidin/Vilant 62.5 MDI(NF) 1 inh INH DAILY 03/15/19 03/15/19 History [ANORO 62.5/25 Ellipta DEVICE (NF)] guaiFENesin [Mucinex] 600 mg PO BID PRN 03/15/19 03/18/19 History Hydrocodone/Acetaminophen [[place] 1 each PO Q6HR PRN 03/18/19 03/18/19 History 10-325 Tablet] Ipratropium 0.5MG/2.5ML NEB* 0.5 mg INH Q6H PRN 03/18/19 03/18/19 History [Atrovent 0.5 MG NEB.ALENA*] Pantoprazole Sodium [Protonix] 40 mg PO DAILY 03/18/19 03/18/19 History Umeclidin/Vilant 62.5 MDI(NF) 1 inh INH DAILY 03/18/19 03/18/19 History [ANORO 62.5/25 Ellipta DEVICE (NF)] Positive: Skin Diaphoresis Positive: Chest Pain Positive: Shortness Of Breath, Cough Positive: Nausea. Negative: Vomiting, Diarrhea Neurological: Other - lightheadedness All Other Systems Reviewed And Are Negative: Yes Physical Exam - Summary Physical Exam Summary: General: Morbidly obese, Well-nourished female. No acute distress. HEENT: Normocephalic, Atraumatic. Eyes: Conjuctiva normal, PERRL. Ears: TMs within normal limits. Nares: (-) discharge, (-) erythema. Oropharynx: Clear, mucous membranes moist, (-) exudates. Neck: Soft, FROM, (-) lymphadenopathy, (-) thyromegaly, (-) JVD. Cardiovascular: Normal sinus rhythm, (-) murmur. Lungs: Clear to auscultation bilaterally (-) wheezes, (-) rales, (-) rhonchi. Abdomen: Soft, non-tender, non-distended, (-) organomegaly, normal bowel sounds. Back: (-) CVA tenderness Extremities: No edema. Skin: Warm, dry, (-) rash. Neuro: Alert and oriented x3, no focal deficits. Psychiatric: Mood normal, affect normal. Triage Information Reviewed: Yes Vital Signs On Initial Exam: Initial Vitals Temp Pulse Resp BP Pulse Ox 97.6 F 84 20 93/72 96 04/14/19 20:00 04/14/19 20:00 04/14/19 20:00 04/14/19 20:00 04/14/19 20:00 Vital Signs Reviewed: Yes Procedures - Sedation Patient Received Moderate/Deep Sedation with Procedure: No Diagnostics - Vital Signs Vital Signs Temp Pulse Resp BP Pulse Ox 04/14/19 20:00 97.6 F 84 20 93/72 96 - Laboratory Lab Results: Lab Results 04/14/19 04/14/19 04/14/19 Range/Units 20:11 20:11 20:11 WBC 6.1 (3.5-10.8) 10^3/uL RBC 4.57 (3.70-4.87) 10^6 /uL Hgb 15.6 (12.0-16.0) g/dL Hct 45 (35-47) % MCV 99 H (80-97) fL MCH 34 H (27-31) pg MCHC 35 (31-36) g/dL RDW 15 (10-15) % Plt Count 139 L (150-450) 10^3/uL MPV 8.0 (7.4-10.4) fL Neut % (Auto) 76.6 % Lymph % (Auto) 16.1 % [place] % (Auto) 6.6 % Eos % (Auto) 0.1 % Baso % (Auto) 0.6 % Absolute Neuts (auto) 4.6 (1.5-7.7) 10^3/ul Absolute Lymphs (auto) 1.0 (1.0-4.8) 10^3/ul Absolute Monos (auto) 0.4 (0-0.8) 10^3/ul Absolute Eos (auto) 0.0 (0-0.6) 10^3/ul Absolute Basos (auto) 0.0 (0-0.2) 10^3/ul Absolute Nucleated RBC 0.0 10^3/ul Nucleated RBC % 0.0 INR (Anticoag Therapy) 1.05 (0.82-1.09) Sodium 140 (135-145) mmol/L Potassium 3.8 (3.5-5.0) mmol/L Chloride 109 (101-111) mmol/L Carbon Dioxide 24 (22-32) mmol/L Anion Gap 7 (2-11) mmol/L BUN 9 (6-24) mg/dL Creatinine 0.59 (0.51-0.95) mg/dL Est GFR ( Amer) 129.5 (>60) Est GFR (Non-Af Amer) 107.0 (>60) BUN/Creatinine Ratio 15.3 (8-20) Glucose 86 (70-100) mg/dL Lactic Acid (0.5-2.0) mmol/L Calcium 8.8 (8.6-10.3) mg/dL Magnesium 1.9 (1.9-2.7) mg/dL Total Bilirubin 0.70 (0.2-1.0) mg/dL AST 17 (13-39) U/L ALT 16 (7-52) U/L Alkaline Phosphatase 67 (34-104) U/L Troponin I 0.00 (<0.04) ng/mL B-Natriuretic Peptide (<=100) pg/mL Total Protein 6.5 (6.4-8.9) g/dL Albumin 3.7 (3.2-5.2) g/dL Globulin 2.8 (2-4) g/dL Albumin/Globulin Ratio 1.3 (1-3) Beta HCG, Quant 3.30 mIU/mL Serum Alcohol Pending 04/14/19 04/14/19 Range/Units 20:11 20:11 WBC (3.5-10.8) 10^3/uL RBC (3.70-4.87) 10^6 /uL Hgb (12.0-16.0) g/dL Hct (35-47) % MCV (80-97) fL MCH (27-31) pg MCHC (31-36) g/dL RDW (10-15) % Plt Count (150-450) 10^3/uL MPV (7.4-10.4) fL Neut % (Auto) % Lymph % (Auto) % [place] % (Auto) % Eos % (Auto) % Baso % (Auto) % Absolute Neuts (auto) (1.5-7.7) 10^3/ul Absolute Lymphs (auto) (1.0-4.8) 10^3/ul Absolute Monos (auto) (0-0.8) 10^3/ul Absolute Eos (auto) (0-0.6) 10^3/ul Absolute Basos (auto) (0-0.2) 10^3/ul Absolute Nucleated RBC 10^3/ul Nucleated RBC % INR (Anticoag Therapy) (0.82-1.09) Sodium (135-145) mmol/L Potassium (3.5-5.0) mmol/L Chloride (101-111) mmol/L Carbon Dioxide (22-32) mmol/L Anion Gap (2-11) mmol/L BUN (6-24) mg/dL Creatinine (0.51-0.95) mg/dL Est GFR ( Amer) (>60) Est GFR (Non-Af Amer) (>60) BUN/Creatinine Ratio (8-20) Glucose (70-100) mg/dL Lactic Acid 0.8 (0.5-2.0) mmol/L Calcium (8.6-10.3) mg/dL Magnesium (1.9-2.7) mg/dL Total Bilirubin (0.2-1.0) mg/dL AST (13-39) U/L ALT (7-52) U/L Alkaline Phosphatase (34-104) U/L Troponin I (<0.04) ng/mL B-Natriuretic Peptide 281 H (<=100) pg/mL Total Protein (6.4-8.9) g/dL Albumin (3.2-5.2) g/dL Globulin (2-4) g/dL Albumin/Globulin Ratio (1-3) Beta HCG, Quant mIU/mL Serum Alcohol Result Diagrams: 04/14/19 20:11 04/14/19 20:11 Lab Statement: Any lab studies that have been ordered have been reviewed, and results considered in the medical decision making process. - Radiology CXR Radiology Interpretation Completed By: ED Physician Summary of Radiographic Findings: No acute changes. Pending official radiology report. - EKG 1950 Cardiac Rate: NL - 79bpm EKG Rhythm: Sinus Rhythm ST Segment: Normal Ectopy: None Summary of EKG Findings: EKG at 1950 reveals normal sinus rhythm with rate of 79 BPM, no acute changes, no ischemic changes. This EKG was reviewed and interpreted by Dr. Ovalle. Re-Evaluation - Re-Evaluation 1st re-eval Re-Evaluation Time: 23:20 Change: Unchanged Comment: Pt's pain returned, is still describing it as burning in her chest. Will order GI cocktail. 2nd re-eval Re-Evaluation Time: 00:36 Change: Improved Comment: Pt feels better w/ GI cocktail. I have discussed results with the patient and her abd pain has resolved. Discussed symptoms that warrant immediate return to ED. Chest Pain Course/Dx - Course Course Of Treatment: Pt is a 53 y/o F presenting to the ED with a chief complaint of chest pain initially onset on the morning of 04/14/19, described as a burning pressure currently rated at 7/10 in severity. She notes associated shortness of breath, diaphoresis, chills, lightheadedness with sitting up, and nausea, as well as a chronic cough from smoking. She denies vomiting, diarrhea, or recent illness. 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 Pt's physical exam is normal aside from the pt being morbidly obese. Pt's lab results without significant abnormality aside from BNP of 281. CXR shows no acute changes. EKG at 1950 reveals normal sinus rhythm with rate of 79 BPM, no acute changes, no ischemic changes. This EKG was reviewed and interpreted by Dr. Ovalle. Pt's 2nd troponin is 0.01. In the ED course, pt was given Protonix, Zofran, 1L fluids, and 324mg ASA. As of 2319, pt's pain returned, is still describing it as burning in her chest. Will order GI cocktail. As of 35, the pt is feeling better. I have discussed results with the patient and her abd pain has resolved. Discussed symptoms that warrant immediate return to ED. - Diagnoses Provider Diagnoses: Tobacco use, Epigastric pain Discharge ED - Sign-Out/Discharge Documenting (check all that apply): Patient Departure - Discharge Plan Condition: Stable Disposition: HOME Patient Education Materials: Epigastric Pain (ED) Referrals: Israel Giffrod DO [Primary Care Provider] - Additional Instructions: Please follow up with your primary care physician within three days. Please return to ED for any new or worsening symptoms. - Billing Disposition and Condition Condition: STABLE Disposition: Home - Attestation Statements Document Initiated by Scribe: Yes Documenting Scribe: Ami Burns Provider For Whom Abeba is Documenting (Include Credential): Ludy Ovalle MD. Scribe Attestation: Ami Pringle scribed for Ludy Ovalle MD. on 04/15/19 at 0504. Scribe Documentation Reviewed: Yes Provider Attestation: The documentation as recorded by the Ami jarvis accurately reflects the service I personally performed and the decisions made by Ludy caceres MD. Status of Scribe Document: Viewed
[2019-04-14] MEDS ORDERED: Aspirin 81 mg CHEW TAB* 81 MG TAB.CHEW PO ONE (21:25)
[2019-04-14] MEDS ORDERED: Ondansetron INJ* 2 MG/ML VIAL IV ONE (21:41)
[2019-04-14] MEDS ORDERED: Pantoprazole IV* 40 MG IV ONE (21:41)
[2019-04-15] MEDS ORDERED: Lidocaine 2% VISCOUS* 15 ML UDC PO ONE (00:10)
[2019-04-15] MEDS ORDERED: Al Hydrox/Mg Hydrox/Simet LIQ* 30 ML UDC PO ONE (00:10)
[2019-04-15 00:23] LABS: Urine Appearance Cloudy; Urine Bacteria Absent (Absent); Urine Bilirubin Negative (Negative); Urine Blood 2+ (Negative); Urine Color Amber; Urine Glucose Negative (Negative); Urine Ketones 2+ (Negative); Urine Nitrite Negative (Negative); Urine Protein 1+(30 mg/dL) (Negative); Urine Red Blood Cell 3+(>10/hpf) (Absent); Urine Specific Gravity 1.024 (1.010-1.030); Urine Squamous Epithelial Cell Present (Absent); Urine Urobilinogen Negative (Negative); Urine White Blood Cell Absent (Absent)
[2019-04-15 00:53] VITALS: BP 122/65
== END 2019-04-15 00:52 | disposition home or self-care (01) ==
LOC: ED 19:48
DX: R10.13 Epigastric pain (principal); I48.91 Unspecified atrial fibrillation; R94.31 Abnormal electrocardiogram [ECG] [EKG]; I50.9 Heart failure, unspecified; J44.9 Chronic obstructive pulmonary disease, unspecified; M46.92 Unspecified inflammatory spondylopathy, cervical region; M46.90 Unspecified inflammatory spondylopathy, site unspecified; M79.7 Fibromyalgia; F41.9 Anxiety disorder, unspecified; F32.9 Major depressive disorder, single episode, unspecified; E66.01 Morbid (severe) obesity due to excess calories; F17.210 Nicotine dependence, cigarettes, uncomplicated; Z88.0 Allergy status to penicillin; Z79.899 Other long term (current) drug therapy; Z87.01 Personal history of pneumonia (recurrent); Z98.84 Bariatric surgery status; Z86.19 Personal history of other infectious and parasitic diseases; Z79.01 Long term (current) use of anticoagulants; Z68.41 Body mass index [BMI] 40.0-44.9, adult
CPT/HCPCS: 36415; 71045; 80053; 80320; 81003; 81015; 83605; 83735; 83880; 84484; 84702; 85025; 85610; 93005; 96361; 96374; 96375; 99282; A9270-GY; G0480; J2405

== ENCOUNTER 2024-05-15 10:27 | Inpatient (IN) ==
[2024-05-15] MEDS ORDERED: Sulfur Hexaflouride MICROSPHR 25 MG VIAL IV PRN (11:02)
[2024-05-15 11:11] LABS: ABS Basophils 0.1 10^3/uL (0.0-0.1); ABS Eosinophils 0.1 10^3/uL (0.0-0.5); ABS Lymphocytes 1.6 10^3/uL (1.0-4.8); ABS Monocytes 0.8 10^3/uL (0.0-0.9); ABS Neutrophils 7.6 10^3/uL (1.5-7.6); Hematocrit 39.8 % (35-45); Hemoglobin 13.4 g/dL (11.5-14.3); Lymphocyte % 15.8 %; Mean Corpuscular Hemoglobin 33.4 pg (27-33); Mean Corpuscular Hgb Conc 33.8 g/dL (31-36); Mean Corpuscular Volume 98.8 fL (80-97); Mean Platelet Volume 7.6 fL (7.5-11.2); Platelet Count 203 10^3/uL (150-450); Red Blood Count 4.03 10^6/uL (3.63-4.92); Red Cell Distribution Width 15.2 % (12-17); White Blood Count 10.2 10^3/uL (3.8-11.8)
[2024-05-15 11:30] LABS: INR 1.36 (0.85-1.14)
[2024-05-15 12:11] LABS: Albumin 3.4 g/dL (3.2-5.2); Albumin/Globulin Ratio 1.4 (1-3); Calcium 8.5 mg/dL (8.6-10.3); Creatinine, Serum 0.66 mg/dL (0.51-0.95); Globulin 2.4 g/dL (2-4); Potassium 5.9 mmol/L (3.5-5.0); Total Bilirubin 0.7 mg/dL (0.2-1.0); Total Protein 5.8 g/dL (6.4-8.9); eGFR CKD-EPI 102.3 (>60)
[2024-05-15 12:35] LABS: High Sensitivity Troponin 1 Hr 17 pg/mL (<15)
[2024-05-15 12:46] LABS: C Reactive Protein 5.69 mg/L (<8.01)
[2024-05-15] MEDS: Albumin Human 25% 25 GM/100 ML BTL IV ONE (15:01)
[2024-05-15] MEDS ORDERED: .Amiodarone 24HR ONLY IV Protocol Order Note IV ONE (17:07)
[2024-05-15] MEDS: PHENYLEPHRINE DRIP IVPREMIX 50 MG/250 ML BAG IV SCH (17:26)
[2024-05-15] MEDS: Amiodarone 150 mg IVPREMIX 150 MG/100 ML BAG IV ONE (17:31)
[2024-05-15] MEDS: Hydrocortisone INJ 100 MG/2ML 2 ML VIAL IV ONE (17:49)
[2024-05-15] MEDS: Amiodarone 360 MG IVPREMIX 360 MG/200 ML BAG IV SCH ×2 (17:50→23:38)
[2024-05-15] MEDS: Cefepime 2 GM in Dextrose 2 GM/50 ML BAG IV SCH (18:27)
[2024-05-15] MEDS: SODIUM ZIRCONIUM CYCLOSILICATE 5 GM PACKET PO ONE (20:52)
[2024-05-15 21:28] LABS: Calcium 8.5 mg/dL (8.6-10.3); Creatinine, Serum 0.66 mg/dL (0.51-0.95); Potassium 5.9 mmol/L (3.5-5.0); eGFR CKD-EPI 102.3 (>60)
[2024-05-16 01:06] LABS: Calcium 8.6 mg/dL (8.6-10.3); Creatinine, Serum 0.59 mg/dL (0.51-0.95); Potassium 5.7 mmol/L (3.5-5.0); eGFR CKD-EPI 105.1 (>60)
[2024-05-16 05:06] LABS: ABS Lymphocytes 1.3 10^3/uL (1.0-4.8); ABS Monocytes 0.5 10^3/uL (0.0-0.9); ABS Neutrophils 5.7 10^3/uL (1.5-7.6); Eosinophil % 0.2 %; Hematocrit 35.7 % (35-45); Hemoglobin 12.2 g/dL (11.5-14.3); Lymphocyte % 17.1 %; Mean Corpuscular Hemoglobin 33.5 pg (27-33); Mean Corpuscular Hgb Conc 34.1 g/dL (31-36); Mean Corpuscular Volume 98.4 fL (80-97); Mean Platelet Volume 7.6 fL (7.5-11.2); Nucleated Red Blood Cells % 0.1 %/100WBC (0.0-0.8); Platelet Count 194 10^3/uL (150-450); Red Blood Count 3.63 10^6/uL (3.63-4.92); Red Cell Distribution Width 15.4 % (12-17); White Blood Count 7.5 10^3/uL (3.8-11.8)
[2024-05-16] MEDS: Metoprolol Tartrate 5 mg VIAL 5 ml VIAL (1 mg/ml) IV PRN ×2 (05:08→16:22)
[2024-05-16 05:38] LABS: Albumin 3.2 g/dL (3.2-5.2); Albumin/Globulin Ratio 1.6 (1-3); Calcium 8.4 mg/dL (8.6-10.3); Creatinine, Serum 0.54 mg/dL (0.51-0.95); Magnesium 2.4 mg/dL (1.9-2.7); Potassium 4.9 mmol/L (3.5-5.0); Total Bilirubin 0.3 mg/dL (0.2-1.0); Total Protein 5.2 g/dL (6.4-8.9); eGFR CKD-EPI 107.3 (>60)
[2024-05-16] MEDS: Metoprolol Tartrate 5 mg VIAL 5 ml VIAL (1 mg/ml) ONE (07:13)
[2024-05-16] MEDS: Esmolol 10 MG/ML IVPREMIX 2,500 MG/250 ML BAG IV SCH ×2 (07:30→09:47)
[2024-05-16] MEDS ORDERED: Albuterol HFA INHALER 8 gm MDI INH PRN (08:34)
[2024-05-16] MEDS: Tiotropium Brom/Olodaterol MDI (ACUTE) INH SCH (08:49)
[2024-05-16] MEDS: Furosemide 40 mg/4 ml IV VIAL IV SLOW PU ONE (08:58)
[2024-05-16 10:30] LABS: HDL Cholesterol 37.8 mg/dL
[2024-05-16] MEDS: Hydrocortisone INJ 100 MG/2ML 2 ML VIAL IV SCH (11:14)
[2024-05-16] MEDS: Nystatin TOP POWDER 15 GM BTL TOPICAL SCH (12:37)
[2024-05-16] MEDS ORDERED: Metoprolol Tartrate 5 mg VIAL 5 ml VIAL (1 mg/ml) IV PRN (13:27)
[2024-05-16] MEDS: Nicotine PATCH 14 MG/24 HR PATCH TRANSDERM SCH (14:55)
[2024-05-16] MEDS: cefTRIAXone 1 gm/50 mL D5W 1 GM/50 ML BAG IV SCH (16:16)
[2024-05-16] MEDS: Senna TAB 8.6 mg TAB PO PRN (21:30)
[2024-05-16] MEDS: Polyethylene Glycol 3350 17 GM PACKET PO PRN (21:30)
[2024-05-17 02:56] LABS: ABS Basophils 0.1 10^3/uL (0.0-0.1); ABS Monocytes 0.5 10^3/uL (0.0-0.9); ABS Neutrophils 9.6 10^3/uL (1.5-7.6); ABS Nucleated RBC 0.01 10^3/ul; Hematocrit 36.4 % (35-45); Lymphocyte % 9.1 %; Mean Corpuscular Hemoglobin 32.5 pg (27-33); Mean Corpuscular Volume 98.4 fL (80-97); Mean Platelet Volume 7.6 fL (7.5-11.2); Nucleated Red Blood Cells % 0.1 %/100WBC (0.0-0.8); Platelet Count 212 10^3/uL (150-450); Red Cell Distribution Width 15.8 % (12-17); White Blood Count 11.1 10^3/uL (3.8-11.8)
[2024-05-17 03:35] LABS: Albumin 3.2 g/dL (3.2-5.2); Albumin/Globulin Ratio 1.5 (1-3); Calcium 8.5 mg/dL (8.6-10.3); Creatinine, Serum 0.61 mg/dL (0.51-0.95); Globulin 2.1 g/dL (2-4); Magnesium 2.3 mg/dL (1.9-2.7); Potassium 4.9 mmol/L (3.5-5.0); Total Bilirubin 0.5 mg/dL (0.2-1.0); Total Protein 5.3 g/dL (6.4-8.9); eGFR CKD-EPI 104.2 (>60)
[2024-05-17] MEDS: Furosemide 40 mg/4 ml IV VIAL IV ONE (10:35)
[2024-05-17] MEDS: Digoxin IV 0.5 MG/2 ML AMP (0.25 MG/ML) IV SLOW PU ONE ×2 (10:36→15:22)
[2024-05-17] MEDS ORDERED: Naloxone 0.4 mg VIAL 0.4 mg/ml 1 ml VIAL ONE (15:02)
[2024-05-17] MEDS ORDERED: Midazolam 5 mg/5 ml VIAL 1 mg/ml 5 ml VIAL (5 mg) ONE (15:02)
[2024-05-17] MEDS ORDERED: Flumazenil 0.5 mg/5 ml 0.1 MG/ML 5 ml VIAL ONE (15:02)
[2024-05-17] MEDS ORDERED: fentaNYL 100 mcg/2 ml 50 MCG/ML VIAL ONE (15:02)
[2024-05-17] MEDS: Midazolam 10 mg/10 ml VIAL 1 mg/ml 10 ml VIAL (10 mg) IV SLOW PU ONE (16:48)
[2024-05-17] MEDS: fentaNYL 100 mcg/2 ml 50 MCG/ML VIAL IV SLOW PU ONE (16:48)
[2024-05-17] MEDS: NS 0.9% 1000 ml BAG 1,000 ML IV ONE (16:57)
[2024-05-17] MEDS ORDERED: Naloxone 0.4 mg VIAL 0.4 mg/ml 1 ml VIAL IV PUSH PRN (21:50)
[2024-05-18 03:42] LABS: ABS Monocytes 0.6 10^3/uL (0.0-0.9); ABS Neutrophils 6.4 10^3/uL (1.5-7.6); Eosinophil % 0.1 %; Hematocrit 33.1 % (35-45); Lymphocyte % 11.9 %; Mean Corpuscular Hemoglobin 32.9 pg (27-33); Mean Corpuscular Hgb Conc 33.2 g/dL (31-36); Mean Platelet Volume 7.7 fL (7.5-11.2); Nucleated Red Blood Cells % 0.1 %/100WBC (0.0-0.8); Platelet Count 177 10^3/uL (150-450); Red Blood Count 3.34 10^6/uL (3.63-4.92); Red Cell Distribution Width 15.6 % (12-17)
[2024-05-18 04:17] LABS: Albumin 2.9 g/dL (3.2-5.2); Albumin/Globulin Ratio 1.5 (1-3); Calcium 8.4 mg/dL (8.6-10.3); Creatinine, Serum 0.76 mg/dL (0.51-0.95); Globulin 1.9 g/dL (2-4); Magnesium 2.1 mg/dL (1.9-2.7); Potassium 4.2 mmol/L (3.5-5.0); Total Bilirubin 0.4 mg/dL (0.2-1.0); Total Protein 4.8 g/dL (6.4-8.9); eGFR CKD-EPI 91.3 (>60)
[2024-05-18 12:19] VITALS: BP 109/47
== END 2024-05-18 14:15 | disposition home or self-care (01) | DRG 309 ==
LOC: ED 10:27 → EDHOLD 10:27 → OBSVTOIN 12:24 → ICU 12:24
PROVIDERS: ADMIT Internal Medicine Critical Care Medicine; ATTEND Internal Medicine Critical Care Medicine
PROC: CARDVER (ICD-10-PCS; 2024-05-15 15:15)

== ENCOUNTER 2024-07-09 15:42 | Inpatient (IN) ==
[2024-07-09 16:07] LABS: ABS Lymphocytes 1.2 10^3/uL (1.0-4.8); ABS Monocytes 0.5 10^3/uL (0.0-0.9); ABS Neutrophils 8.1 10^3/uL (1.5-7.6); ABS Nucleated RBC 0.01 10^3/ul; Eosinophil % 0.3 %; Hematocrit 41.8 % (35-45); Hemoglobin 14.1 g/dL (11.5-14.3); Lymphocyte % 12.5 %; Mean Corpuscular Hemoglobin 33.6 pg (27-33); Mean Corpuscular Hgb Conc 33.7 g/dL (31-36); Mean Corpuscular Volume 99.7 fL (80-97); Nucleated Red Blood Cells % 0.1 %/100WBC (0.0-0.8); Platelet Count 215 10^3/uL (150-450); Red Cell Distribution Width 16.4 % (12-17); White Blood Count 9.9 10^3/uL (3.8-11.8)
[2024-07-09 16:20] LABS: INR 1.21 (0.85-1.14)
[2024-07-09 16:49] LABS: Albumin 3.6 g/dL (3.5-5.7); Albumin/Globulin Ratio 1.3 (1-3); Calcium 8.3 mg/dL (8.6-10.3); Creatinine, Serum 0.84 mg/dL (0.51-0.95); Globulin 2.7 g/dL (2-4); Magnesium 2.5 mg/dL (1.9-2.7); Potassium 3.5 mmol/L (3.5-5.0); Total Bilirubin 0.6 mg/dL (0.2-1.0); Total Protein 6.3 g/dL (6.4-8.9)
[2024-07-09] MEDS: Lactated Ringers 1000 ml BAG 1,000 ML IV ONE (16:56)
[2024-07-09 17:04] LABS: TSH Ultra Thyroid Stim Horm 7.47 mcIU/mL (0.34-5.60)
[2024-07-09 17:06] LABS: Free T4 0.46 ng/dL (0.61-1.12)
[2024-07-09 17:39] LABS: High Sensitivity Troponin 1 Hr 9 pg/mL (<15)
[2024-07-09] MEDS: Potassium Chlor 20 meq TAB.ER PO SCH (22:05)
[2024-07-10] MEDS: NS 0.9% 1000 ml BAG 1,000 ML IV ONE (00:12)
[2024-07-10] MEDS ORDERED: Midazolam 5 mg/5 ml VIAL 1 mg/ml 5 ml VIAL (5 mg) IV SLOW PU ONE (01:00)
[2024-07-10] MEDS: fentaNYL 100 mcg/2 ml 50 MCG/ML VIAL IV SLOW PU ONE (01:12)
[2024-07-10] MEDS: Midazolam 2 mg/2 ml VIAL 1 mg/ml 2 ml VIAL (2 mg) IV SLOW PU ONE (01:13)
[2024-07-10] MEDS: fentaNYL 100 mcg/2 ml 50 MCG/ML VIAL ONE (01:13)
[2024-07-10] MEDS ORDERED: Atropine 1 MG/ML INJ 1 ML VIAL IV PUSH PRN (02:36)
[2024-07-10] MEDS: Atropine 0.1 MG/ML 10 ml SYR (1 mg) IV PUSH PRN (03:14)
[2024-07-10] MEDS: Norepinephrine 32MCG/ML D5WBAG 8,000 MCG/250 ML BAG IV SCH (04:07)
[2024-07-10 04:15] LABS: ABS Basophils 0.1 10^3/uL (0.0-0.1); ABS Eosinophils 0.3 10^3/uL (0.0-0.5); ABS Lymphocytes 2.8 10^3/uL (1.0-4.8); ABS Monocytes 0.7 10^3/uL (0.0-0.9); ABS Neutrophils 5.8 10^3/uL (1.5-7.6); Eosinophil % 2.6 %; Hemoglobin 11.7 g/dL (11.5-14.3); Lymphocyte % 29.4 %; Mean Corpuscular Hemoglobin 34.2 pg (27-33); Mean Corpuscular Hgb Conc 34.3 g/dL (31-36); Mean Corpuscular Volume 99.6 fL (80-97); Mean Platelet Volume 7.7 fL (7.5-11.2); Platelet Count 169 10^3/uL (150-450); Red Blood Count 3.42 10^6/uL (3.63-4.92); Red Cell Distribution Width 16.1 % (12-17); White Blood Count 9.6 10^3/uL (3.8-11.8)
[2024-07-10 04:59] LABS: Calcium 7.8 mg/dL (8.6-10.3); Creatinine, Serum 0.7 mg/dL (0.51-0.95); Magnesium 2.2 mg/dL (1.9-2.7); Potassium 3.3 mmol/L (3.5-5.0); eGFR CKD-EPI 100.8 (>60)
[2024-07-10] MEDS: Potassium EFFERVES 25 meq TAB PO ONE (06:23)
[2024-07-10] MEDS: Tiotropium Brom/Olodaterol MDI (ACUTE) INH SCH (07:15)
[2024-07-10] MEDS: Cholecalciferol (VIT D3) 1,000 unit TAB PO SCH (09:41)
[2024-07-10] MEDS: [UNRECOGNIZED DRUG - REMARK] PO SCH (09:42)
[2024-07-11] MEDS: Albumin Human 5% 12.5 GM/250 ML BTL IV ONE ×2 (01:06→07:20)
[2024-07-11 04:56] LABS: ABS Basophils 0.1 10^3/uL (0.0-0.1); ABS Eosinophils 0.2 10^3/uL (0.0-0.5); ABS Lymphocytes 2.1 10^3/uL (1.0-4.8); ABS Monocytes 0.7 10^3/uL (0.0-0.9); ABS Neutrophils 5.5 10^3/uL (1.5-7.6); Eosinophil % 2.8 %; Hematocrit 35.8 % (35-45); Lymphocyte % 24.1 %; Mean Corpuscular Hemoglobin 33.7 pg (27-33); Mean Corpuscular Hgb Conc 33.6 g/dL (31-36); Mean Corpuscular Volume 100.4 fL (80-97); Mean Platelet Volume 7.9 fL (7.5-11.2); Nucleated Red Blood Cells % 0.1 %/100WBC (0.0-0.8); Platelet Count 167 10^3/uL (150-450); Red Blood Count 3.56 10^6/uL (3.63-4.92); Red Cell Distribution Width 16.2 % (12-17); White Blood Count 8.6 10^3/uL (3.8-11.8)
[2024-07-11 06:02] LABS: Calcium 8.3 mg/dL (8.6-10.3); Creatinine, Serum 0.7 mg/dL (0.51-0.95); eGFR CKD-EPI 100.8 (>60)
[2024-07-11] MEDS: Furosemide 40 mg/4 ml IV VIAL IV SLOW PU ONE (06:33)
[2024-07-11] MEDS ORDERED: Tiotropium Brom/Olodaterol MDI (ACUTE) INH SCH (09:00)
[2024-07-11] MEDS ORDERED: Sulfur Hexaflouride MICROSPHR 25 MG VIAL IV PRN (13:42)
[2024-07-11] MEDS: Nystatin TOP POWDER 15 GM BTL TOPICAL SCH (14:58)
[2024-07-11] MEDS: Venlafaxine XR 75 mg PO SCH (20:20)
[2024-07-12 04:43] LABS: ABS Eosinophils 0.2 10^3/uL (0.0-0.5); ABS Lymphocytes 1.6 10^3/uL (1.0-4.8); ABS Monocytes 0.8 10^3/uL (0.0-0.9); ABS Neutrophils 6.4 10^3/uL (1.5-7.6); Eosinophil % 1.9 %; Hematocrit 34.1 % (35-45); Hemoglobin 11.4 g/dL (11.5-14.3); Lymphocyte % 17.5 %; Mean Corpuscular Hemoglobin 33.6 pg (27-33); Mean Corpuscular Hgb Conc 33.5 g/dL (31-36); Mean Corpuscular Volume 100.3 fL (80-97); Mean Platelet Volume 8.3 fL (7.5-11.2); Platelet Count 152 10^3/uL (150-450); White Blood Count 8.9 10^3/uL (3.8-11.8)
[2024-07-12 05:18] LABS: Albumin 3.1 g/dL (3.5-5.7); Albumin/Globulin Ratio 1.6 (1-3); Calcium 8.1 mg/dL (8.6-10.3); Creatinine, Serum 0.51 mg/dL (0.51-0.95); Magnesium 2.2 mg/dL (1.9-2.7); Phosphorus 3.9 mg/dL (2.5-5.0); Potassium 3.8 mmol/L (3.5-5.0); Total Bilirubin 1.1 mg/dL (0.2-1.0); Total Protein 5.1 g/dL (6.4-8.9); eGFR CKD-EPI 108.8 (>60)
[2024-07-12] MEDS: Albuterol 2.5mg/3 ml (0.083%) NEB.SOLN INH PRN (07:32)
[2024-07-12] MEDS: Potassium Chlor 20 meq TAB.ER PO ONE (08:02)
[2024-07-12] MEDS: Albuterol 2.5mg/3 ml (0.083%) NEB.SOLN INH ONE (14:02)
[2024-07-13 10:19] VITALS: BP 125/82
== END 2024-07-13 14:36 | disposition home or self-care (01) | DRG 308 ==
LOC: EDHOLD 15:42 → ED 15:42 → SUATTDRO 18:58 → OBSVTOIN 18:58 → MEDTELE 22:05 → ICU 07-10 02:24 → MED 07-10 16:25 → ICU 07-11 06:20 → MEDTELE 07-12 14:06
PROVIDERS: ADMIT Internal Medicine; ATTEND Internal Medicine